=== PATIENT | male | born 1940 | race Caucasian/White ===

== ENCOUNTER → 2016-09-16 | Outpatient (CLI) | payer MEDICARE, BC ==
--- NOTE | 2016-09-16 21:41 | PN ---
This is a 75-year-old male patient who is coming to see me for a compliancy check. He was diagnosed having severe [place] with an AHI of 41. He was given initially a CPAP pressure of 15 cm of water. He was having difficulty in tolerating the CPAP machine and he thought that the pressure was quite elevated. Based on that, I switched this patient to automatic mode with a pressure maximum of 15 and minimum of 5. On today's followup he is feeling much better. His P90 pressure is at 9.6. His leak factor is 18 L/minute. His AHI is down to 0.6. His average CPAP use is around 7.7 hours per night and he is using his CPAP more than 4 hours for 29 out of 30 days. He is much more happy with the automatic mode on his CPAP machine. Benefitting from treatment. No major hypersomnia or sleepiness. Much more alert and awake during the day. Piffard score is down to 2. BP is 159/81, pulse 94, respiration 16, temperature 98.3, saturation 98% on room air. Weight is 222. BMI is 33.7. GENERAL APPEARANCE: Obese, calm, comfortable. HEENT: No goiter or neck masses. LUNGS: Clear. HEART: Sounds are regular rate and rhythm. Normal S1, S2. No S3. No S4. No murmurs. ABDOMEN: Soft, nontender. No organomegaly. EXTREMITIES: No edema. No cyanosis or clubbing. IMPRESSION: 1. Obstructive sleep apnea, severe; AHI of 41; currently on Auto CPAP unit with a pressure maximum of 15, minimum of 5, with improving compliance and clinical response. 2. Obesity. 3. History of cerebrovascular accident. 4. Hypertension. 5. Hyperlipidemia. 6. Diabetes mellitus. 7. Paroxysmal atrial fibrillation. PLAN: 1. Continue the current CPAP pressure settings, which will be in automatic mode. 2. Compliance data was reviewed. 3. No need for any further adjustments. 4. Implement good sleep hygiene measures. 5. Implement weight loss. 6. Will follow.
== END | disposition home or self-care (01) ==
LOC: SLEEP 13:48
PROVIDERS: ATTEND Internal Medicine Critical Care Medicine
DX: G47.33 Obstructive sleep apnea (adult) (pediatric) (principal); E66.9 Obesity, unspecified; Z68.33 Body mass index [BMI] 33.0-33.9, adult

== ENCOUNTER → 2017-04-23 | Outpatient (CLI) | payer MEDICARE, BC ==
--- NOTE | 2017-04-23 10:49 | MR ---
EXAMINATION TYPE: MR lumbar spine wo con DATE OF EXAM: 04/23/2017 COMPARISON: NONE HISTORY: Lumbago With Sciatica TECHNIQUE: Multiplanar, multisequence images of the lumbar spine were acquired. There is mild retrolisthesis of L4 with respect to L5 (grade 1). There is also wedge compression defo rmity of L1 with approximately 20% vertebral body height loss and no retropulsion. There is no bone m arrow edema to indicate acuity. This is therefore chronic. Multilevel disc desiccation is present thr oughout the lumbar spine. Conus medullaris is unremarkable terminating at L1-L2. There is partial vis ualization of the T2 hyperintense and T1 hypointense left renal lesion within the mid to upper pole. This is only minimally seen and cannot be evaluated. Well-circumscribed T2 hyperintense and T1 predominant hypointense with areas of internal hyperintensi ty lesion is seen within the L3 vertebral body measuring 1.5 cm. This is thought to represent an atyp ical hemangioma as there is some internal T1 hyperintensity and this appears to have a trabeculated i nternal appearance. L1-L2: There is a broad-based disc bulge without focality. This results in minimal bilateral neural f oraminal narrowing. Mild facet arthropathy is also seen without spinal canal stenosis. L2-L3: There is a small central disc herniation superimposed upon a broad-based disc bulge resulting in mild bilateral neural foraminal narrowing without spinal canal stenosis. There is also mild facet arthropathy at this level. L3-L4: There is a small broad-based disc bulge in combination with facet arthropathy that creates mil d bilateral neural foraminal narrowing. No spinal canal stenosis. L4-L5: There is a broad-based disc bulge with a superimposed small right paracentral disc herniation resulting in mild spinal canal stenosis and mild bilateral neural foraminal narrowing. Facet arthropa thy and mild ligamentum flavum buckling also contribute to these findings. L5-S1: Again there is grade 1 retrolisthesis of L4 and L5 with disc uncovering inferiorly. There is i nferior annular tear of the disc and a broad-based disc bulge although no focal disc herniation is id entified. There is mild bilateral neural foraminal narrowing and facet arthropathy. Lumbar segments are intact. No paraspinal masses are identified. Conus medullaris has a normal appe arance. IMPRESSION: 1. Small central disc herniation at L2-L3 without spinal canal stenosis. Facet arthropathy results in mild right lateral neural foraminal narrowing at this level. 2. Small right paracentral disc herniation at L4-L5 superimposed upon a broad-based disc bulge that i n combination with facet arthropathy creates mild spinal canal stenosis and mild bilateral neural for aminal narrowing. 3. Grade 1 retrolisthesis of L4 on L5 and annular tear without neural foraminal narrowing or spinal c anal stenosis. 4. Multilevel degenerative disc disease as described above. 5. 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 Confirmation with CT could be performed if clinically indicated. 6. Partial visualization of a left renal lesion, incompletely evaluated. Renal ultrasound could be pe rformed for further evaluation.
== END | disposition home or self-care (01) ==
LOC: RADMRIMAIN 09:11
PROVIDERS: ATTEND Internal Medicine
DX: M48.061 Spinal stenosis, lumbar region without neurogenic claudication (principal); M51.16 Intervertebral disc disorders with radiculopathy, lumbar region; M46.97 Unspecified inflammatory spondylopathy, lumbosacral region; M99.73 Connective tissue and disc stenosis of intervertebral foramina of lumbar region; M43.16 Spondylolisthesis, lumbar region
CPT/HCPCS: 72148

== ENCOUNTER 2022-01-16 17:23 | Inpatient (IN) | payer MEDICARE, BC ==
[2022-01-16 18:47] LABS: Basophils # (A) 0.1 k/uL (0-0.2); Basophils % (A) 1 %; Eosinophils # (A) 0.2 k/uL (0-0.7); Eosinophils % (A) 2 %; HCT 47.3 % (39.0-53.0); Lymphocytes % (A) 27 %; MCHC 31.8 g/dL (31.0-37.0); MCV 94.3 fL (80.0-100.0); Mean Platelet Volume 8.6; Monocytes # (A) 0.6 k/uL (0-1.0); Monocytes % (A) 8 %; Neutrophils # (A) 4.4 k/uL (1.3-7.7); Neutrophils % (A) 58 %; Platelet Count 206 k/uL (150-450); RBC 5.01 m/uL (4.30-5.90); RDW 13.4 % (11.5-15.5); WBC 7.6 k/uL (3.8-10.6)
[2022-01-16 18:54] LABS: INR 1.3 (<1.2); Prothrombin Time 13.4 sec (9.0-12.0)
[2022-01-16 19:02] LABS: ALT 23 U/L (4-49); AST 34 U/L (17-59); African American GFR (CKD) 69 (>60 ml/min/1.73 sqM); Albumin 4.8 g/dL (3.5-5.0); Alcohol <10 mg/dL; Alkaline Phosphatase 97 U/L (38-126); Anion Gap 14 mmol/L; Blood Urea Nitrogen 14 mg/dL (9-20); Calcium 9.3 mg/dL (8.4-10.2); Carbon Dioxide 25 mmol/L (22-30); Chloride 100 mmol/L (98-107); Glucose 138 mg/dL (74-99); Non-African American GFR(CKD) 60 (>60 ml/min/1.73 sqM); Potassium 3.9 mmol/L (3.5-5.1); Sodium 139 mmol/L (137-145); Total Bilirubin 0.8 mg/dL (0.2-1.3)
--- NOTE | 2022-01-16 20:23 | ED ---
Psych HPI - General Chief Complaint: Psychiatric Symptoms Stated Complaint: hallucinations, dementia Time Seen by Provider: 01/16/22 20:22 Source: patient Mode of arrival: ambulatory - History of Present Illness Initial Comments: 81-year-old male past history of dementia presents emergency department for visual hallucinations. Sisters at bedside and helps provide the history. States that the patient has been having hallucinations for the past year however they have become significantly worse in the past week. He lives alone. Sister is concerned that he is getting hurt himself. He states that he sees bugs crawling in his house. They have come out of his vases and plants. He was sitting in bed last night and saw a bump moving around underneath the sheets. Sister reports that he told her last week that one of his plants fell over and started crawling away. He aggressively tries to kill these "hallucinations" by attacking them. He jumped on the floor and was grabbing underneath his bed to catch the bugs. Due to concern that the patient is getting injured himself they called his primary care doctor. She recommended that he come into the emergency department. He denies any recent medication changes. No recent head injuries. He does take anticoagulation for A. fib. Denies any other symptoms to include headache, visual changes, fevers, chest pain, shortness of breath. No other alleviating, precipitating or modifying factors - Related Data Home Medications Medication Instructions Recorded Confirmed Donepezil [Aricept] 10 mg PO HS 01/16/22 01/16/22 HYDROcodone/APAP 7.5-325MG [[place] 1 tab PO TID 01/16/22 01/16/22 7.5-325] Potassium Chloride ER [K-Dur 20] 30 meq PO DAILY 01/16/22 01/16/22 Rivaroxaban [Xarelto] 20 mg PO PC-SUPPER 01/16/22 01/16/22 Simvastatin [Zocor] 40 mg PO DAILY 01/16/22 01/16/22 amLODIPine [Norvasc] 5 mg PO DAILY 01/16/22 01/16/22 atenoloL 100 mg PO DAILY 01/16/22 01/16/22 lisinopriL [Zestril] 20 mg PO BID 01/16/22 01/16/22 Previous Rx's Medication Instructions Recorded Folic Acid 1 mg PO DAILY #30 tablet 01/20/22 Multivitamins, Thera [Multivitamin] 1 tab PO DAILY #30 tablet 01/20/22 QUEtiapine [SEROquel] 25 mg PO HS #30 tab 01/20/22 Thiamine [Vitamin B-1] 100 mg PO DAILY #30 tablet 01/20/22 Venlafaxine HCl ER [Effexor XR] 37.5 mg PO DAILY #30 cap 01/20/22 Allergies Allergy/AdvReac Type Severity Reaction Status Date / Time No Known Allergies Allergy Verified 01/16/22 21:49 Review of Systems ROS Statement: Those systems with pertinent positive or pertinent negative responses have been documented in the HPI. ROS Other: All systems not noted in ROS Statement are negative. Past Medical History Past Medical History: COPD, CVA/TIA, Diabetes Mellitus Additional Past Medical History / Comment(s): dementia- hallucinations (hearing and seeing things)- symptoms for months. AFIB History of Any Multi-Drug Resistant Organisms: None Reported Additional Past Surgical History / Comment(s): hand surgery Past Psychological History: No Psychological Hx Reported Smoking Status: Never smoker Past Alcohol Use History: Rare Past Drug Use History: Marijuana General Exam Limitations: no limitations General appearance: alert, in no apparent distress Head exam: Present: atraumatic, normocephalic, normal inspection Eye exam: Present: normal appearance, PERRL, EOMI. Absent: scleral icterus, conjunctival injection, periorbital swelling ENT exam: Present: normal exam, mucous membranes moist Neck exam: Present: normal inspection. Absent: tenderness, meningismus, lymphadenopathy Respiratory exam: Present: normal lung sounds bilaterally. Absent: respiratory distress, wheezes, rales, rhonchi, stridor Cardiovascular Exam: Present: regular rate, normal rhythm, normal heart sounds. Absent: systolic murmur, diastolic murmur, rubs, gallop, clicks GI/Abdominal exam: Present: soft, normal bowel sounds. Absent: distended, tenderness, guarding, rebound, rigid Extremities exam: Present: normal inspection, full ROM, normal capillary refill. Absent: tenderness, pedal edema, joint swelling, calf tenderness Back exam: Present: normal inspection Neurological exam: Present: alert, oriented X3, CN II-XII intact Psychiatric exam: Present: normal affect, normal mood, other (admit visual hallucinations - not active right now) Skin exam: Present: warm, dry, intact, normal color. Absent: rash Course Vital Signs 01/16/22 01/16/22 01/17/22 17:52 22:00 01:30 Temperature 98.5 F Pulse Rate 79 78 65 Respiratory 20 20 16 Rate Blood Pressure 127/71 138/62 O2 Sat by Pulse 99 96 Oximetry 01/17/22 01/17/22 08:15 13:13 Temperature 98.1 F Pulse Rate 72 74 Respiratory 18 18 Rate Blood Pressure 149/83 143/80 O2 Sat by Pulse 98 99 Oximetry Medical Decision Making - Medical Decision Making Upon arrival patient was placed into room 9. Her history and physical exam was performed. IV is established laboratory studies are conducted. CT brain demonstrates cerebral atrophy and chronic small vessel ischemia. Due to concern that the patient is given a harm himself he will be admitted for psychiatric consultation. Spoke with Tomer with [facility] who agreed to admit the patient. - Lab Data Result diagrams: 01/18/22 05:21 01/18/22 05:21 Lab Results 01/16/22 01/16/22 01/16/22 Range/Units 18:25 18:25 18:25 WBC 7.6 (3.8-10.6) k/uL RBC 5.01 (4.30-5.90) m/uL Hgb 15.0 (13.0-17.5) gm/dL Hct 47.3 (39.0-53.0) % MCV 94.3 (80.0-100.0) fL MCH 30.0 (25.0-35.0) pg MCHC 31.8 (31.0-37.0) g/dL RDW 13.4 (11.5-15.5) % Plt Count 206 (150-450) k/uL MPV 8.6 Neutrophils % 58 % Lymphocytes % 27 % Monocytes % 8 % Eosinophils % 2 % Basophils % 1 % Neutrophils # 4.4 (1.3-7.7) k/uL Lymphocytes # 2.0 (1.0-4.8) k/uL Monocytes # 0.6 (0-1.0) k/uL Eosinophils # 0.2 (0-0.7) k/uL Basophils # 0.1 (0-0.2) k/uL PT 13.4 H (9.0-12.0) sec INR 1.3 H (<1.2) Sodium 139 (137-145) mmol/L Potassium 3.9 (3.5-5.1) mmol/L Chloride 100 (98-107) mmol/L Carbon Dioxide 25 (22-30) mmol/L Anion Gap 14 mmol/L BUN 14 (9-20) mg/dL Creatinine 1.14 (0.66-1.25) mg/dL Est GFR (CKD-EPI)AfAm 69 (>60 ml/min/1.73 sqM) Est GFR (CKD-EPI)NonAf 60 (>60 ml/min/1.73 sqM) Glucose 138 H (74-99) mg/dL Calcium 9.3 (8.4-10.2) mg/dL Total Bilirubin 0.8 (0.2-1.3) mg/dL AST 34 (17-59) U/L ALT 23 (4-49) U/L Alkaline Phosphatase 97 (38-126) U/L Troponin I (0.000-0.034) ng/mL Total Protein 8.0 (6.3-8.2) g/dL Albumin 4.8 (3.5-5.0) g/dL TSH 1.130 (0.465-4.680) mIU/L Urine Color Urine Appearance (Clear) Urine pH (5.0-8.0) Ur Specific [place] (1.001-1.035) Urine Protein (Negative) Urine Glucose (UA) (Negative) Urine Ketones (Negative) Urine Blood (Negative) Urine Nitrite (Negative) Urine Bilirubin (Negative) Urine Urobilinogen (<2.0) mg/dL Ur Leukocyte Esterase (Negative) Urine RBC (0-5) /hpf Urine WBC (0-5) /hpf Ur Squamous Epith Cells (0-4) /hpf Hyaline Casts (0-2) /lpf Urine Mucus (None) /hpf Urine Opiates Screen (NotDetected) Ur Oxycodone Screen (NotDetected) Urine Methadone Screen (NotDetected) Ur Propoxyphene Screen (NotDetected) Ur Barbiturates Screen (NotDetected) U Tricyclic Antidepress (NotDetected) Ur Phencyclidine Scrn (NotDetected) Ur Amphetamines Screen (NotDetected) U Methamphetamines Scrn (NotDetected) U Benzodiazepines Scrn (NotDetected) Urine Cocaine Screen (NotDetected) U Marijuana (THC) Screen (NotDetected) Serum Alcohol <10 mg/dL 01/16/22 01/16/22 01/16/22 Range/Units 18:25 21:32 21:32 WBC (3.8-10.6) k/uL RBC (4.30-5.90) m/uL Hgb (13.0-17.5) gm/dL Hct (39.0-53.0) % MCV (80.0-100.0) fL MCH (25.0-35.0) pg MCHC (31.0-37.0) g/dL RDW (11.5-15.5) % Plt Count (150-450) k/uL MPV Neutrophils % % Lymphocytes % % Monocytes % % Eosinophils % % Basophils % % Neutrophils # (1.3-7.7) k/uL Lymphocytes # (1.0-4.8) k/uL Monocytes # (0-1.0) k/uL Eosinophils # (0-0.7) k/uL Basophils # (0-0.2) k/uL PT (9.0-12.0) sec INR (<1.2) Sodium (137-145) mmol/L Potassium (3.5-5.1) mmol/L Chloride (98-107) mmol/L Carbon Dioxide (22-30) mmol/L Anion Gap mmol/L BUN (9-20) mg/dL Creatinine (0.66-1.25) mg/dL Est GFR (CKD-EPI)AfAm (>60 ml/min/1.73 sqM) Est GFR (CKD-EPI)NonAf (>60 ml/min/1.73 sqM) Glucose (74-99) mg/dL Calcium (8.4-10.2) mg/dL Total Bilirubin (0.2-1.3) mg/dL AST (17-59) U/L ALT (4-49) U/L Alkaline Phosphatase (38-126) U/L Troponin I <0.012 (0.000-0.034) ng/mL Total Protein (6.3-8.2) g/dL Albumin (3.5-5.0) g/dL TSH (0.465-4.680) mIU/L Urine Color Yellow Urine Appearance Clear (Clear) Urine pH 6.5 (5.0-8.0) Ur Specific [place] 1.022 (1.001-1.035) Urine Protein 1+ H (Negative) Urine Glucose (UA) Negative (Negative) Urine Ketones Trace H (Negative) Urine Blood Negative (Negative) Urine Nitrite Negative (Negative) Urine Bilirubin 1+ H (Negative) Urine Urobilinogen 6.0 (<2.0) mg/dL Ur Leukocyte Esterase Negative (Negative) Urine RBC 1 (0-5) /hpf Urine WBC 2 (0-5) /hpf Ur Squamous Epith Cells <1 (0-4) /hpf Hyaline Casts 17 H (0-2) /lpf Urine Mucus Many H (None) /hpf Urine Opiates Screen Detected H (NotDetected) Ur Oxycodone Screen Not Detected (NotDetected) Urine Methadone Screen Not Detected (NotDetected) Ur Propoxyphene Screen Not Detected (NotDetected) Ur Barbiturates Screen Not Detected (NotDetected) U Tricyclic Antidepress Not Detected (NotDetected) Ur Phencyclidine Scrn Not Detected (NotDetected) Ur Amphetamines Screen Not Detected (NotDetected) U Methamphetamines Scrn Not Detected (NotDetected) U Benzodiazepines Scrn Not Detected (NotDetected) Urine Cocaine Screen Not Detected (NotDetected) U Marijuana (THC) Screen Detected H (NotDetected) Serum Alcohol mg/dL - EKG Data EKG Comments: EKG demonstrates A. fib with a rate of 81. QRS 131. QTC of 451. Right bundle- branch block. No acute ST segment elevations Disposition Clinical Impression: Visual hallucinations Disposition: [facility] Condition: Stable Is patient prescribed a controlled substance at d/c from ED?: No Time of Disposition: 23:36 Decision to Admit Reason: Admit from EC Decision Date: 01/16/22 Decision Time: 23:36
[2022-01-16] MEDS: DONEPEZIL 10 MG TAB PO SCH (21:00)
[2022-01-16 22:08] LABS: Appearance,Urine Clear (Clear); Bilirubin,Urine 1+ (Negative); Blood,Urine Negative (Negative); Color,Urine Yellow; Glucose,Urine (UA) Negative (Negative); Hyaline Casts,Urine 17 /lpf (0-2); Ketones,Urine Trace (Negative); Leukocyte Esterase,Urine Negative (Negative); Mucus,Urine Many /hpf; Nitrite,Urine Negative (Negative); PH, Urine 6.5 (5.0-8.0); Protein,Urine 1+ (Negative); RBC,Urine 1 /hpf (0-5); Specific Gravity,Urine 1.022 (1.001-1.035); Squamous Epithelial Cell,Urine <1 /hpf (0-4); WBC,Urine 2 /hpf (0-5)
[2022-01-16 22:19] LABS: Amphetamine Screen,Urine Not Detected (NotDetected); Barbiturate Screen,Urine Not Detected (NotDetected); Benzodiazepines Screen,Urine Not Detected (NotDetected); Cocaine Screen,Urine Not Detected (NotDetected); Methadone Screen, Urine Not Detected (NotDetected); Opiate Screen,Urine Detected (NotDetected); Oxycodone Screen, Urine Not Detected (NotDetected); Phencyclidine Screen,Urine Not Detected (NotDetected); Tricyclic Antidepressant,Urine Not Detected (NotDetected); Urn Cannabinoid Scrn Detected (NotDetected)
--- NOTE | 2022-01-16 22:37 | CT ---
EXAMINATION TYPE: CT brain alvin wo con DATE OF EXAM: 01/16/2022 COMPARISON: CT brain 6 11/2011 HISTORY: AMS. Hallucinations. Dementia CT DLP: 1472 mGycm Automated exposure control for dose reduction was used. Images of the brain and cervical spine obtained with no contrast. There is cerebral cortical atrophy. There is hypodensity in the periventricular white matter. There i s no mass effect or midline shift. No sign of intracranial hemorrhage. There is normal aeration of th e mastoid sinuses. The cervical vertebra have normal alignment. There is degenerative mild disc space narrowing from C2 to C7 with spurring of the endplates. Facet joints are intact. The skull base is intact. Sella turcic a appears normal. IMPRESSION: Spondylotic changes in the cervical spine. No fracture. Cerebral atrophy and chronic small vessel ischemia. No acute intracranial abnormality there is progre ssion of changes compared to old exams
[2022-01-16] MEDS ORDERED: NALOXONE 0.4 MG/ML 1 ML VIAL IV PRN (23:36)
[2022-01-17] MEDS: lisinopriL 20 MG TAB PO SCH ×3 (02:34→20:28)
[2022-01-17] MEDS: HYDROcodone/APAP 7.5-325MG 1 EACH TAB PO SCH ×2 (02:34→08:56)
[2022-01-17 06:10] LABS: Basophils # (A) 0.1 k/uL (0-0.2); Basophils % (A) 1 %; Eosinophils # (A) 0.2 k/uL (0-0.7); Eosinophils % (A) 3 %; HCT 45.4 % (39.0-53.0); HGB 14.5 gm/dL (13.0-17.5); Lymphocytes # (A) 1.7 k/uL (1.0-4.8); Lymphocytes % (A) 21 %; MCH 30.3 pg (25.0-35.0); MCV 94.7 fL (80.0-100.0); Mean Platelet Volume 8.7; Monocytes # (A) 0.8 k/uL (0-1.0); Monocytes % (A) 9 %; Neutrophils # (A) 5.2 k/uL (1.3-7.7); Neutrophils % (A) 63 %; Platelet Count 194 k/uL (150-450); RBC 4.79 m/uL (4.30-5.90); RDW 13.4 % (11.5-15.5); WBC 8.2 k/uL (3.8-10.6)
[2022-01-17 06:18] LABS: Calcium 8.9 mg/dL (8.4-10.2); Potassium 3.1 mmol/L (3.5-5.1)
[2022-01-17] MEDS: ATORVASTATIN 20 MG TAB PO SCH (08:56)
[2022-01-17] MEDS: atenoloL 50 MG TAB PO SCH (08:56)
[2022-01-17] MEDS: POTASSIUM CHLORIDE ER 10 MEQ TAB.ER.PRT PO SCH (08:57)
[2022-01-17] MEDS: amLODIPine 5 MG TAB PO SCH (08:57)
[2022-01-17] MEDS ORDERED: VENLAFAXINE HCL ER 75 MG CAP PO SCH (09:00)
--- NOTE | 2022-01-17 12:39 | P.CN ---
Psychiatric Consult - . Consult date: 01/17/22 Consult:: 01/17/22 12:38 IDENTIFYING DATA: This patient is a , retired, 80-year-old male with significant history of injury neurocognitive disorder who presented to the emergency department for worsening visual hallucinations. HISTORY OF PRESENT ILLNESS: The patient presented to the hospital on 01/16/2022, brought in by family due to concerns for worsening visual hallucinations. The patient reportedly has had hallucinations for the past year but over the past few weeks, his hallucinations have began to be more intense and very bothersome. Next to the patient for this evaluation is his daughter Cherry and his sister Shobha. The patient is agreeable to having them present during the psychiatric interview. The patient's family reports that the patient has had very severe hallucinations that are primarily visual in nature over the past few weeks which led him to be very fearful in his own home, at times crying, and at times "attacking the hallucinations." The patient describes very vivid hallucinations of cobwebs in his throat, bed plans falling over and calling away, and bugs in his room. He also reports that his dog is now even scared to be present in his room. In regards to any significant acute stressors, the patient and his family deny any acute stressors. However, the patient continues to be emotional regarding the passing of his 3 years ago. In regards to mood symptoms, the patient is denying any suicidal or homicidal ideation. He reports no previous attempts at suicide and escape from the family. The family does express concern for elevated anxiety and isolation as the patient lives alone and only stays with his dog. They report no significant history of bipolar symptoms. They deny any delusional thought content outside of the context of memory lapses due to his dementia. The patient has a known diagnosis of major neurocognitive disorder, likely Alzheimer's dementia. The patient displays and a signal to regarding this diagnosis however has been noted to have memory issues dating back to her even when he was approximately 3-4 years ago. PAST PSYCHIATRIC HISTORY: Patient has a history of dementia the patient is currently on a regimen of Effexor and Aricept. Patient denies any previous psychiatric hospitalizations. Patient denies any psychiatric outpatient follow- up. Patient denies any history of suicide attempts in the past. PAST MEDICAL HISTORY: COPD, CVA/TIA, diabetes mellitus ALLERGIES: NO KNOWN DRUG ALLERGIES CHEMICAL DEPENDENCY HISTORY: The patient reports rare alcohol use however his daughter states that the patient drinks daily. The current amount is unknown at this time. He has used edible marijuana lately. He denies any tobacco use or illicit drug use. FAMILY PSYCHIATRIC/SUBSTANCE USE HISTORY: No reported family psychiatric history. SOCIAL HISTORY: Patient is currently after being with his since they were 14 years of age. His father 2 to sons and 2 daughters. He identifies his daughter Cherry has a decision maker for him should he be unable to make decisions for himself. 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 MENTAL STATUS EXAM: General Appearance: Patient appears to be stated age is alert, pleasant, and cooperative. Patient appears to have fair hygiene and grooming wearing hospital gown with fair eye contact. Behavior: Patient is calmly lying in bed without any agitated behavior. Speech: Patient's speech is fluent and nonpressured. Mood/Affect: Patient reports their mood is "feeling okay, it is a little scary", affect is congruent and euthymic Suicidality/Homicidality: Patient denies having any suicidal or homicidal ideation intent or plan. Perceptions: Patient denies any visual hallucinations and denies any auditory hallucinations Though content/process: There is no evidence of any delusional thought content and thought process is linear and goal-directed. Memory and concentration: Grossly poor at this time. Judgment and insight: Poor Vital Signs Temp 98.1 F 01/17/22 08:15 Pulse 72 01/17/22 08:15 Resp 18 01/17/22 08:15 BP 149/83 01/17/22 08:15 Pulse Ox 98 01/17/22 08:15 FiO2 Intake & Output 01/16/22 01/17/22 01/17/22 18:59 06:59 18:59 Weight 85.729 kg Laboratory Results WBC 8.2 k/uL (3.8-10.6) 01/17/22 05:42 RBC 4.79 m/uL (4.30-5.90) 01/17/22 05:42 Hgb 14.5 gm/dL (13.0-17.5) 01/17/22 05:42 Hct 45.4 % (39.0-53.0) 01/17/22 05:42 MCV 94.7 fL (80.0-100.0) 01/17/22 05:42 MCH 30.3 pg (25.0-35.0) 01/17/22 05:42 MCHC 32.0 g/dL (31.0-37.0) 01/17/22 05:42 RDW 13.4 % (11.5-15.5) 01/17/22 05:42 Plt Count 194 k/uL (150-450) 01/17/22 05:42 MPV 8.7 01/17/22 05:42 Neutrophils % 63 % 01/17/22 05:42 Lymphocytes % 21 % 01/17/22 05:42 Monocytes % 9 % 01/17/22 05:42 Eosinophils % 3 % 01/17/22 05:42 Basophils % 1 % 01/17/22 05:42 Neutrophils # 5.2 k/uL (1.3-7.7) 01/17/22 05:42 Lymphocytes # 1.7 k/uL (1.0-4.8) 01/17/22 05:42 Monocytes # 0.8 k/uL (0-1.0) 01/17/22 05:42 Eosinophils # 0.2 k/uL (0-0.7) 01/17/22 05:42 Basophils # 0.1 k/uL (0-0.2) 01/17/22 05:42 PT 13.4 sec (9.0-12.0) H 01/16/22 18:25 INR 1.3 (<1.2) H 01/16/22 18:25 Sodium 139 mmol/L (137-145) 01/17/22 05:42 Potassium 3.1 mmol/L (3.5-5.1) L 01/17/22 05:42 Chloride 101 mmol/L (98-107) 01/17/22 05:42 Carbon Dioxide 27 mmol/L (22-30) 01/17/22 05:42 Anion Gap 11 mmol/L 01/17/22 05:42 BUN 14 mg/dL (9-20) 01/17/22 05:42 Creatinine 1.05 mg/dL (0.66-1.25) 01/17/22 05:42 Est GFR (CKD-EPI)AfAm 76 (>60 ml/min/1.73 sqM) 01/17/22 05:42 Est GFR (CKD-EPI)NonAf 66 (>60 ml/min/1.73 sqM) 01/17/22 05:42 Glucose 126 mg/dL (74-99) H 01/17/22 05:42 Calcium 8.9 mg/dL (8.4-10.2) 01/17/22 05:42 Total Bilirubin 0.8 mg/dL (0.2-1.3) 01/16/22 18:25 AST 34 U/L (17-59) 01/16/22 18:25 ALT 23 U/L (4-49) 01/16/22 18:25 Alkaline Phosphatase 97 U/L (38-126) 01/16/22 18:25 Troponin I <0.012 ng/mL (0.000-0.034) 01/16/22 18:25 Total Protein 8.0 g/dL (6.3-8.2) 01/16/22 18:25 Albumin 4.8 g/dL (3.5-5.0) 01/16/22 18:25 TSH 1.130 mIU/L (0.465-4.680) 01/16/22 18:25 Urine Color Yellow 01/16/22 21:32 Urine Appearance Clear (Clear) 01/16/22 21:32 Urine pH 6.5 (5.0-8.0) 01/16/22 21:32 Ur Specific [place] 1.022 (1.001-1.035) 01/16/22 21:32 Urine Protein 1+ (Negative) H 01/16/22 21:32 Urine Glucose (UA) Negative (Negative) 01/16/22 21:32 Urine Ketones Trace (Negative) H 01/16/22 21:32 Urine Blood Negative (Negative) 01/16/22 21:32 Urine Nitrite Negative (Negative) 01/16/22 21:32 Urine Bilirubin 1+ (Negative) H 01/16/22 21:32 Urine Urobilinogen 6.0 mg/dL (<2.0) 01/16/22 21:32 Ur Leukocyte Esterase Negative (Negative) 01/16/22 21:32 Urine RBC 1 /hpf (0-5) 01/16/22 21:32 Urine WBC 2 /hpf (0-5) 09/22/22 21:32 Ur Squamous Epith Cells <1 /hpf (0-4) 01/16/22 21:32 Hyaline Casts 17 /lpf (0-2) H 01/16/22 21:32 Urine Mucus Many /hpf (None) H 01/16/22 21:32 Urine Opiates Screen Detected (NotDetected) H 01/16/22 21:32 Ur Oxycodone Screen Not Detected (NotDetected) 01/16/22 21:32 Urine Methadone Screen Not Detected (NotDetected) 01/16/22 21:32 Ur Propoxyphene Screen Not Detected (NotDetected) 01/16/22 21:32 Ur Barbiturates Screen Not Detected (NotDetected) 01/16/22 21:32 U Tricyclic Antidepress Not Detected (NotDetected) 01/16/22 21:32 Ur Phencyclidine Scrn Not Detected (NotDetected) 01/16/22 21:32 Ur Amphetamines Screen Not Detected (NotDetected) 01/16/22 21:32 U Methamphetamines Scrn Not Detected (NotDetected) 01/16/22 21:32 U Benzodiazepines Scrn Not Detected (NotDetected) 01/16/22 21:32 Urine Cocaine Screen Not Detected (NotDetected) 01/16/22 21:32 U Marijuana (THC) Screen Detected (NotDetected) H 01/16/22 21:32 Serum Alcohol <10 mg/dL 01/16/22 18:25 Allergies Allergy/AdvReac Type Severity Reaction Status Date / Time No Known Allergies Allergy Verified 01/16/22 21:49 IMPRESSIONS: Acute psychosis -likely multifactorial in etiology; suspect medication side effect ([place], Aricept, Effexor), cannabis use, alcohol use, infectious process Major neurocognitive disorder PLAN: -At this time patient DOES NOT meet criteria for inpatient psychiatric admission. -Will order TSH, B12, Folate -Delirium precautions recommended with patient including - avoiding use of narcotics and AUTOMATIC DIE CUTTING MACHINE OPERATOR sedatives, limit anticholinergic medications when possible, frequent re-orientation, minimize use of restraints, open window shades during the day and close them at night -Would recommend the following medication changes/additions: We will decrease the dose of Effexor to 37.5 mg by mouth daily with plans to taper off this medication to minimize polypharmacy. EKG reviewed; at bedtime fibrillation with a QTC of 451ms. After significant discussion with the patient and his family, we are in agreement to start Seroquel 25 mg by mouth at bedtime for acute psychosis. Black box warning of increased cardiovascular events in the elderly has been discussed with the family and the patient in detail. We will be conservative on the use of this medication and gradually titrate pending patient's response and tolerance. -Will continue to follow along
[2022-01-17] MEDS ORDERED: DEXTROSE 50% SYRINGE 50 ML IVP PRN ×2 (15:12)
[2022-01-17 17:12] LABS: Glucose,Whole Blood 98 mg/dL (70-110)
[2022-01-17] MEDS: INSULIN ASPART (NovoLOG) 100 UNIT/ML VIAL SQ SCH ×2 (17:16→20:44)
[2022-01-17] MEDS: THIAMINE 100 MG TAB PO SCH (17:52)
[2022-01-17] MEDS: RIVAROXABAN 20 MG TAB PO SCH (17:52)
[2022-01-17 20:08] LABS: Glucose,Whole Blood 173 mg/dL (70-110)
[2022-01-17] MEDS: DONEPEZIL 10 MG TAB PO SCH (20:28)
[2022-01-17] MEDS: QUEtiapine 25 MG TAB PO SCH (20:28)
[2022-01-17] MEDS: HYDROcodone/APAP 7.5-325MG 1 EACH TAB PO PRN (20:46)
--- NOTE | 2022-01-18 00:55 | HP ---
HISTORY AND PHYSICAL CHIEF COMPLAINTS: Hallucinations. HISTORY OF PRESENT ILLNESS: This 81-year-old gentleman with a past medical history of dementia, COPD, was living apparently by himself, but the patient has significant visual hallucinations there is something crawling under the bed and family is concerned, the patient was taken to [facility]. THC was found to be positive. The patient is eating Edibles for back pain. The patient is apparently also drinking somewhat uncontrollably according to the family and the patient denies at this point. There is no history of any fever, rigors, or chills. PAST MEDICAL HISTORY: Reviewed, include COPD, dementia. HOME MEDICATIONS: Again reviewed include Xarelto, doses and rest of medications are noted. ALLERGIES: None. FAMILY HISTORY: No history of heart disease or strokes. SOCIAL HISTORY: History of Edibles as mentioned earlier. REVIEW OF SYSTEMS: A 14-point review is negative except as mentioned earlier. PHYSICAL EXAMINATION: VITAL SIGNS: Pulse 72, blood pressure 149/83, and respirations 18. HEENT: Conjunctivae normal. NECK: No jugular venous distention. RESPIRATIONS: Breath sounds diminished at the bases. No rhonchi, no crackles. ABDOMEN: Soft, nontender. LEGS: No edema, no swelling. SKIN: No ulcer, rash, bleeding. JOINTS: No active deforming arthropathy. LABS: CBC within normal limits, sodium 139, potassium 3.9. ASSESSMENT: 1. Dementia with hallucinations. 2. Positive THC. 3. Possible ETOH. 4. Chronic obstructive pulmonary disease. 5. Multiple medical issues. RECOMMENDATION: The patient is an 81-year-old gentleman who presented with multiple medical issues, at this time we will monitor the patient closely. I would recommend stopping the ETOH and THC. Otherwise, will obtain a psychiatry and neurology consultation to rule out the possibility of acute stroke. Discussed at length with 2 members of the family, the daughter and the niece and according to them adult foster care setting will be more appropriate for the patient. We will consult social services assistant for the evaluation of the home situation. The Adult Protection Services also have to be consulted. We will continue to monitor. PROGNOSIS: Guarded. MMODL / IJN: [id number] /
[2022-01-18 07:25] LABS: Glucose,Whole Blood 110 mg/dL (70-110)
[2022-01-18] MEDS: INSULIN ASPART (NovoLOG) 100 UNIT/ML VIAL SQ SCH ×4 (07:34→20:40)
[2022-01-18] MEDS: lisinopriL 20 MG TAB PO SCH ×2 (07:46→20:40)
[2022-01-18] MEDS: ATORVASTATIN 20 MG TAB PO SCH (07:46)
[2022-01-18] MEDS: MULTIVITAMINS, THERA 1 EACH TAB PO SCH (07:46)
[2022-01-18] MEDS: POTASSIUM CHLORIDE ER 10 MEQ TAB.ER.PRT PO SCH (07:47)
[2022-01-18] MEDS: FOLIC ACID 1 MG TAB PO SCH (07:47)
[2022-01-18] MEDS: atenoloL 50 MG TAB PO SCH (07:48)
[2022-01-18] MEDS: amLODIPine 5 MG TAB PO SCH (07:48)
[2022-01-18] MEDS: THIAMINE 100 MG TAB PO SCH ×2 (07:48→17:24)
[2022-01-18] MEDS: VENLAFAXINE HCL ER 37.5 MG CAP PO SCH (07:48)
[2022-01-18] MEDS: HYDROcodone/APAP 7.5-325MG 1 EACH TAB PO PRN (08:06)
[2022-01-18 09:16] LABS: Basophils # (A) 0.06 X 10*3/uL (0.00-0.10); Basophils % (A) 0.8 %; Eosinophils # (A) 0.29 X 10*3/uL (0.04-0.35); Eosinophils % (A) 3.8 %; HCT 41.1 % (39.6-50.0); HGB 14.2 g/dL (13.0-17.0); Immature Grans, Automated 0.1 %; Lymphocytes # (A) 2.73 X 10*3/uL (0.90-5.00); Lymphocytes % (A) 36.1 %; MCH 31.4 pg (27.0-32.0); MCHC 34.5 g/dL (32.0-37.0); MCV 90.9 fL (80.0-97.0); Mean Platelet Volume 11.6 fL (9.5-12.2); Monocytes # (A) 1.14 X 10*3/uL (0.20-1.00); Monocytes % (A) 15.1 %; NRBC Per 100 WBC 0 /100 WBCS (0.0-0.0); Neutrophils # (A) 3.33 X 10*3/uL (1.80-7.70); Neutrophils % (A) 44.1 %; Platelet Count 195 X 10*3/uL (140-440); RBC 4.52 X 10*6/uL (4.40-5.60); RDW 13.6 % (11.5-14.5); WBC 7.56 X 10*3/uL (4.50-10.00)
[2022-01-18 09:27] LABS: African American GFR (CKD) 61.3 (60.0-200.0); Anion Gap 11.2 mmol/L (10.00-18.00); BUN/Creat Ratio 17.12 Ratio (12.00-20.00); Blood Urea Nitrogen 21.4 mg/dL (9.0-27.0); Calcium 9.1 mg/dL (8.7-10.3); Carbon Dioxide 26.3 mmol/L (20.0-27.5); Non-African American GFR(CKD) 52.9 (60.0-200.0); Potassium 4.2 mmol/L (3.5-5.5)
[2022-01-18 12:24] LABS: Glucose,Whole Blood 129 mg/dL (70-110)
--- NOTE | 2022-01-18 14:23 | PN ---
PROGRESS NOTE SUBJECTIVE: This 81-year-old gentleman admitted with significant hallucinations and dementia also. The patient is also using Edibles at home for back pain. The patient is mildly confused. PHYSICAL EXAMINATION: VITAL SIGNS: Pulse 75, blood pressure 130/86, respirations 18. CHEST: Clear to auscultation. CARDIOVASCULAR: S1, S2 muffled. ABDOMEN: Soft. NERVOUS SYSTEM: No focal deficits. LABS: Reviewed. ASSESSMENT: 1. Dementia with hallucinations. 2. Positive THC. 3. Possible ETOH. 4. Chronic obstructive pulmonary disease. 5. Multiple medical issues. RECOMMENDATIONS: Recommended to continue current medications, symptomatic treatment. Otherwise recommend avoid THC. Continue with psych medications and monitor closely. The patient is unlikely to have a stroke, at this point there is no focal weakness, but the social worker aide to address the home situation. Possible AFC placement. LORETTA / NUVIA: [id number] /
--- NOTE | 2022-01-18 16:22 | P.PN ---
Subjective Progress Note Date: 01/18/22 Principal diagnosis: Acute psychosis -likely multifactorial in etiology; suspect medication side effect ([place], Aricept, Effexor), cannabis use, alcohol use, infectious process Major neurocognitive disorder PLAN: -At this time patient DOES NOT meet criteria for inpatient psychiatric admission. -Will order TSH, B12, Folate -Delirium precautions recommended with patient including - avoiding use of narcotics and PRICE CHECKER sedatives, limit anticholinergic medications when possible, frequent re-orientation, minimize use of restraints, open window shades during the day and close them at night -Would recommend the following medication changes/additions: We will decrease the dose of Effexor to 37.5 mg by mouth daily with plans to taper off this medication to minimize polypharmacy. EKG reviewed; at bedtime fibrillation with a QTC of 451ms. After significant discussion with the patient and his family, we are in agreement to start Seroquel 25 mg by mouth at bedtime for acute psychosis. Black box warning of increased cardiovascular events in the elderly has been discussed with the family and the patient in detail. We will be conservative on the use of this medication and gradually titrate pending patient's response and tolerance. He says that people just don't understand what it is like to lose a of 65 years. He denies any hallucinations and did not seem to be responding to any. He seemed to want to talk about familyproblems but made good sense throughout. Assessment: stable. Nursing staff say he is calm and doing well. I agree with stopping effexor gradually and he does not seem to have any withdrawal and the 25 of Seroquel is reasonable. Objective - Vital Signs Vital signs: Vital Signs Temp 98.1 F 01/18/22 12:25 Pulse 69 01/18/22 12:25 Resp 20 01/18/22 12:25 BP 143/73 01/18/22 12:25 Pulse Ox 98 01/18/22 12:25 FiO2 Intake & Output 01/17/22 01/18/22 01/18/22 18:59 06:59 18:59 Intake Total 300 Balance 300 Weight 85.729 kg Intake: Oral 300 Other: # Voids 2 - Labs CBC & Chem 7: 01/18/22 05:21 01/18/22 05:21 Labs: Abnormal Lab Results - Last 24 Hours (Table) 01/17/22 01/17/2201/18/22 Range/Units 05:42 20:04 05:21 Monocytes # 1.14 H (0.20-1.00) X 10*3/uL Est GFR (CKD-EPI)NonAf (60.0-200.0) Glucose (70-110) mg/dL POC Glucose (mg/dL) 173 H (70-110) mg/dL Hemoglobin A1c 6.3 H (0.0-6.0) % 01/18/22 01/18/22 Range/Units 05:21 12:23 Monocytes # (0.20-1.00) X 10*3/uL Est GFR (CKD-EPI)NonAf 52.9 L (60.0-200.0) Glucose 120 H (70-110) mg/dL POC Glucose (mg/dL) 129 H (70-110) mg/dL Hemoglobin A1c (0.0-6.0) %
[2022-01-18 16:57] LABS: Glucose,Whole Blood 133 mg/dL (70-110)
[2022-01-18] MEDS: RIVAROXABAN 20 MG TAB PO SCH (17:24)
[2022-01-18 20:25] LABS: Glucose,Whole Blood 164 mg/dL (70-110)
[2022-01-18] MEDS: QUEtiapine 25 MG TAB PO SCH (20:40)
[2022-01-18] MEDS: DONEPEZIL 10 MG TAB PO SCH (20:40)
[2022-01-19 07:10] LABS: Glucose,Whole Blood 104 mg/dL (70-110)
[2022-01-19] MEDS: INSULIN ASPART (NovoLOG) 100 UNIT/ML VIAL SQ SCH ×4 (07:22→20:27)
[2022-01-19] MEDS: POTASSIUM CHLORIDE ER 10 MEQ TAB.ER.PRT PO SCH (09:23)
[2022-01-19] MEDS: HYDROcodone/APAP 7.5-325MG 1 EACH TAB PO PRN (09:23)
[2022-01-19] MEDS: FOLIC ACID 1 MG TAB PO SCH (09:23)
[2022-01-19] MEDS: VENLAFAXINE HCL ER 37.5 MG CAP PO SCH (09:24)
[2022-01-19] MEDS: ATORVASTATIN 20 MG TAB PO SCH (09:24)
[2022-01-19] MEDS: THIAMINE 100 MG TAB PO SCH ×2 (09:24→16:57)
[2022-01-19] MEDS: amLODIPine 5 MG TAB PO SCH (09:24)
[2022-01-19] MEDS: MULTIVITAMINS, THERA 1 EACH TAB PO SCH (09:24)
[2022-01-19] MEDS: atenoloL 50 MG TAB PO SCH (09:24)
[2022-01-19] MEDS: lisinopriL 20 MG TAB PO SCH ×2 (09:24→20:33)
[2022-01-19 12:27] LABS: Glucose,Whole Blood 114 mg/dL (70-110)
--- NOTE | 2022-01-19 14:59 | P.PN ---
Subjective Progress Note Date: 01/19/22 Principal diagnosis: Acute psychosis -likely multifactorial in etiology; suspect medication side effect ([place], Aricept, Effexor), cannabis use, alcohol use, infectious process Major neurocognitive disorder Subjective: The patient says that he slept well is not noticing any negative side effects from the medication. 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 Some rambling but not excessive and not irrational. Has a little bit of pressure to his speech. PLAN: -At this time patient DOES NOT meet criteria for inpatient psychiatric admissi on. Assessment: stable. Nursing staff say he is calm and doing well. I agree with stopping effexor gradually and he does not seem to have any withdrawal and the 25 of Seroquel is a reasonable dose and seems to be working well.. Objective - Vital Signs Vital signs: Vital Signs Temp 98 F 01/19/22 11:58 Pulse 75 01/19/22 11:58 Resp 18 01/19/22 11:58 BP 118/73 01/19/22 11:58 Pulse Ox 98 01/19/22 11:58 FiO2 Intake & Output 01/18/22 01/19/22 01/19/22 18:59 06:59 18:59 Intake Total 540 500 Output Total 600 Balance 540 -100 Intake: Oral 540 500 Output: Urine 600 Other: Voiding Method Urinal Urinal # Voids 3 1 - Labs CBC & Chem 7: 01/18/22 05:21 01/18/22 05:21 Labs: Abnormal Lab Results - Last 24 Hours (Table) 01/18/22 01/18/22 01/19/22 Range/Units 16:56 20:15 12:25 POC Glucose (mg/dL) 133 H 164 H 114 H (70-110) mg/dL
[2022-01-19] MEDS: RIVAROXABAN 20 MG TAB PO SCH (16:57)
[2022-01-19 17:17] LABS: Glucose,Whole Blood 137 mg/dL (70-110)
[2022-01-19] MEDS: DONEPEZIL 10 MG TAB PO SCH (20:33)
[2022-01-19] MEDS: QUEtiapine 25 MG TAB PO SCH (20:33)
[2022-01-19 20:49] LABS: Glucose,Whole Blood 139 mg/dL (70-110)
[2022-01-20 06:22] VITALS: BP 144/75; PULSE 99; RESP 20; TEMP 97.6
[2022-01-20 07:20] LABS: Glucose,Whole Blood 115 mg/dL (70-110)
--- NOTE | 2022-01-20 08:42 | PN ---
PROGRESS NOTE SUBJECTIVE: This 81-year-old gentleman, who was admitted with dementia, hallucination, is being closely monitored. Medication being adjusted. No chest pain. No palpitations. No fever. PHYSICAL EXAMINATION: VITAL SIGNS: Pulse 89, blood pressure 150/70, respirations 18. CHEST: Clear to auscultation. CARDIOVASCULAR: S1, S2. ABDOMEN: Soft. NERVOUS SYSTEM: No focal deficits. LABORATORY DATA: Reviewed. ASSESSMENT: 1. Dementia with hallucinations. 2. Positive THC. 3. Possible ETOH. 4. Chronic obstructive pulmonary disease. 5. Multiple medical issues. RECOMMENDATIONS: Continue current medications and symptomatic treatment. Otherwise, continue with the Seroquel and discussed with the family at the bedside possible AFC placement. We will follow closely with Social Work and Case Management tomorrow. LORETTA / NUVIA: [id number] /
[2022-01-20] MEDS: INSULIN ASPART (NovoLOG) 100 UNIT/ML VIAL SQ SCH (09:17)
[2022-01-20] MEDS: HYDROcodone/APAP 7.5-325MG 1 EACH TAB PO PRN (09:17)
[2022-01-20] MEDS: atenoloL 50 MG TAB PO SCH (09:18)
[2022-01-20] MEDS: POTASSIUM CHLORIDE ER 10 MEQ TAB.ER.PRT PO SCH (09:18)
[2022-01-20] MEDS: MULTIVITAMINS, THERA 1 EACH TAB PO SCH (09:18)
[2022-01-20] MEDS: THIAMINE 100 MG TAB PO SCH (09:18)
[2022-01-20] MEDS: ATORVASTATIN 20 MG TAB PO SCH (09:18)
[2022-01-20] MEDS: lisinopriL 20 MG TAB PO SCH (09:18)
[2022-01-20] MEDS: amLODIPine 5 MG TAB PO SCH (09:18)
[2022-01-20] MEDS: FOLIC ACID 1 MG TAB PO SCH (09:18)
[2022-01-20] MEDS: VENLAFAXINE HCL ER 37.5 MG CAP PO SCH (09:19)
--- NOTE | 2022-01-21 10:15 | DS ---
DISCHARGE SUMMARY FINAL DIAGNOSES: 1. Dementia with hallucinations. 2. Positive THC. 3. History of possible ETOH. 4. Chronic obstructive pulmonary disease. 5. Multiple medical issues. DISCHARGE DISPOSITION: The patient will be discharged in stable condition. Guarded prognosis. HISTORY OF PRESENT ILLNESS: This 81-year-old gentleman with dementia and hallucination, treated symptomatically. Psychiatry saw the patient and adjusted medication. The patient improved significantly. PHYSICAL EXAMINATION: VITAL SIGNS: Stable. CARDIOVASCULAR: S1, S2 muffled. ABDOMEN: Soft. NERVOUS SYSTEM: No focal deficits. AFC placement was recommended. farmworker poultry, and the patient's daughter is also getting guardianship. DISCHARGE MEDICATIONS: Continue the home medications and reduce Effexor to 37.5 mg p.o. daily and add Seroquel 25 mg q.h.s. Please refer to the discharge reconciliation sheet for list of medications. MMVISHALL / RODOLFON: [id number] /
== END 2022-01-20 12:30 | disposition home health service (06) | DRG 884 ==
LOC: EC 17:23 → 5NMEDONC 23:36
PROVIDERS: ADMIT Hospitalist; ATTEND Hospitalist
DX: F01.50 Vascular dementia, unspecified severity, without behavioral disturbance, psychotic disturbance, mood disturbance, and anxiety (principal); F23 Brief psychotic disorder; J44.9 Chronic obstructive pulmonary disease, unspecified; T44.1X5A Adverse effect of other parasympathomimetics [cholinergics], initial encounter; T43.215A Adverse effect of selective serotonin and norepinephrine reuptake inhibitors, initial encounter; T40.2X5A Adverse effect of other opioids, initial encounter; I48.91 Unspecified atrial fibrillation; I45.10 Unspecified right bundle-branch block; E11.9 Type 2 diabetes mellitus without complications; M54.9 Dorsalgia, unspecified; Z79.01 Long term (current) use of anticoagulants; Z79.899 Other long term (current) drug therapy; Z86.73 Personal history of transient ischemic attack (TIA), and cerebral infarction without residual deficits
CPT/HCPCS: 36415; 70450; 72125; 80048; 80053; 80306; 80320; 81001; 82607; 82746; 83036; 84443; 84484; 85025; 85610; 93005; 99285

== ENCOUNTER 2023-10-01 16:32 | Inpatient (IN) | payer MEDICARE, BC ==
--- NOTE | 2023-10-01 17:13 | ED ---
Altered Mental Status HPI - General Chief Complaint: Altered Mental Status Stated Complaint: Fall Time Seen by Provider: 10/01/23 16:39 Source: EMS Mode of arrival: EMS Limitations: altered mental status - History of Present Illness Initial Comments: Patient is an 82-year-old man who is brought from his senior apartment to have evaluation for altered mental status. The patient was found on the floor when staff checked on him. He had last been seen the prior evening. The patient states that he remembers going to bed but then does not remember anything after though he does remember being found on the floor this afternoon. Patient denies pain. He denies dyspnea, cough, nausea or vomiting. MD Complaint: altered mental status -: unknown Consistency of Symptoms: unknown Associated Symptoms: denies other symptoms - Related Data Home Medications Medication Instructions Recorded Confirmed Rivaroxaban [Xarelto] 20 mg PO DAILY 01/16/22 10/01/23 lisinopriL [Zestril] 20 mg PO DIRECTED 01/16/22 10/02/23 Potassium Chloride ER [K-Dur 20] 10 meq PO DIRECTED 10/02/23 10/02/23 Potassium Chloride ER [K-Dur 20] 20 meq PO DIRECTED 10/02/23 10/02/23 Allergies Allergy/AdvReac Type Severity Reaction Status Date / Time No Known Allergies Allergy Verified 10/02/23 13:28 Review of Systems ROS Statement: Those systems with pertinent positive or pertinent negative responses have been documented in the HPI. ROS Other: All systems not noted in ROS Statement are negative. Constitutional: Denies: fever Eyes: Denies: vision change Respiratory: Denies: cough, dyspnea Cardiovascular: Denies: chest pain, palpitations Gastrointestinal: Denies: abdominal pain, vomiting, diarrhea Genitourinary: Denies: dysuria Musculoskeletal: Denies: back pain Skin: Denies: rash Neurological: Denies: headache, weakness Past Medical History Past Medical History: COPD, CVA/TIA, Diabetes Mellitus Additional Past Medical History / Comment(s): dementia- hallucinations (hearing and seeing things)- symptoms for months. AFIB History of Any Multi-Drug Resistant Organisms: None Reported Additional Past Surgical History / Comment(s): hand surgery Past Anesthesia/Blood Transfusion Reactions: No Reported Reaction Past Psychological History: No Psychological Hx Reported Smoking Status: Never smoker Past Alcohol Use History: Rare Past Drug Use History: Marijuana General Exam Limitations: altered mental status General appearance: alert, in no apparent distress Head exam: Present: atraumatic, normocephalic Eye exam: Present: normal appearance, PERRL, EOMI. Absent: scleral icterus, conjunctival injection, nystagmus ENT exam: Present: mucous membranes dry Neck exam: Present: normal inspection, full ROM. Absent: tenderness, meningismus Respiratory exam: Present: normal lung sounds bilaterally. Absent: respiratory distress, wheezes, rales, rhonchi, stridor, chest wall tenderness, accessory muscle use Cardiovascular Exam: Present: tachycardia, normal heart sounds. Absent: systolic murmur, diastolic murmur, rubs, gallop GI/Abdominal exam: Present: soft. Absent: distended, tenderness, guarding, rebound, rigid, mass Extremities exam: Present: normal inspection, normal capillary refill. Absent: pedal edema, calf tenderness Back exam: Present: normal inspection. Absent: CVA tenderness (R), CVA tenderness (L), vertebral tenderness Neurological exam: Present: alert, CN II-XII intact. Absent: oriented X3 (Patient is disoriented to date, but does recognize she is at the hospital.), motor sensory deficit Skin exam: Present: warm, dry, intact, normal color. Absent: rash Course Vital Signs 10/01/23 10/01/23 10/01/23 16:46 17:51 18:30 Temperature 98.6 F Pulse Rate 120 H 121 H 120 H Respiratory 20 16 20 Rate Blood Pressure 188/126 202/125 188/127 O2 Sat by Pulse 99 97 95 Oximetry 10/01/23 10/01/23 10/01/23 19:56 20:00 20:15 Temperature 98.5 F Pulse Rate 118 H 117 H 121 H Respiratory 18 Rate Blood Pressure 205/132 205/132 216/134 O2 Sat by Pulse Oximetry 10/01/23 10/01/23 10/01/23 20:30 20:45 21:00 Temperature Pulse Rate 117 H 126 H 129 H Respiratory Rate Blood Pressure 216/134 219/131 219/131 O2 Sat by Pulse Oximetry 10/01/23 10/01/23 10/01/23 21:15 21:30 21:45 Temperature Pulse Rate 114 H 113 H Respiratory Rate Blood Pressure 176/111 188/135 192/116 O2 Sat by Pulse 97 96 Oximetry 10/01/23 10/01/23 10/01/23 22:00 22:15 22:30 Temperature Pulse Rate 116 H 114 H 116 H Respiratory Rate Blood Pressure 185/133 197/123 198/117 O2 Sat by Pulse 95 94 L 96 Oximetry 10/01/23 10/01/23 10/01/23 22:45 23:00 23:15 Temperature 97.7 F Pulse Rate 118 H 107 H 112 H Respiratory Rate Blood Pressure 193/116 207/121 181/119 O2 Sat by Pulse 96 96 95 Oximetry 10/01/23 10/01/23 10/01/23 23:30 23:45 23:47 Temperature Pulse Rate 120 H 106 H Respiratory Rate Blood Pressure 180/117 178/105 189/159 O2 Sat by Pulse 95 95 Oximetry 10/02/23 10/02/23 10/02/23 01:26 04:00 08:00 Temperature 97.7 F Pulse Rate 113 H 111 H 118 H Respiratory 17 18 18 Rate Blood Pressure 192/118 167/104 145/114 O2 Sat by Pulse 97 95 96 Oximetry 10/02/23 10/02/23 10/02/23 08:41 09:00 10:00 Temperature Pulse Rate 120 H 128 H 81 Respiratory 16 18 18 Rate Blood Pressure 177/111 177/111 O2 Sat by Pulse 96 96 96 Oximetry 10/02/23 10/02/23 10/02/23 10:44 11:00 11:09 Temperature Pulse Rate 90 89 72 Respiratory 20 18 18 Rate Blood Pressure 140/78 140/78 140/78 O2 Sat by Pulse 96 98 Oximetry 10/02/23 10/02/23 10/02/23 11:57 12:33 13:00 Temperature Pulse Rate 81 78 98 Respiratory 20 18 14 Rate Blood Pressure 140/78 142/82 137/96 O2 Sat by Pulse 96 96 Oximetry 10/02/23 10/02/23 10/02/23 16:00 18:00 18:30 Temperature Pulse Rate 86 98 76 Respiratory 18 18 18 Rate Blood Pressure 136/93 136/97 147/83 O2 Sat by Pulse 97 93 L 97 Oximetry 10/02/23 20:47 Temperature Pulse Rate 84 Respiratory 18 Rate Blood Pressure 157/99 O2 Sat by Pulse 98 Oximetry Medical Decision Making - Medical Decision Making Is an 82-year-old man here after being found on the ground at his detention apartment. Patient is found to be in atrial fibrillation with rapid ventricular rate and is started on Cardizem, also fluid bolus as he does appear to be somewhat dry. 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 The patient was started on dexamethasone for the edema and I had discussion with the patient and with his sister who is at the bedside. The patient quite somnolent and not appearing to at this point be able to comprehend the diagnosis. The patient's sister states that she believes he probably would not want to have any invasive surgery. I had a preliminary discussion based on my interpretation of the study with her and she had spoken with the patient's children and they are going to get together in the morning and have further discussion. They believe that the patient probably would not want surgery but may be open to considering radiation therapy if this is approp riate. In light of not wanting to have invasive treatment, patient be admitted here to have oncology consultation. The patient had chest x-ray that I interpreted as negative for acute infiltrate, pneumothorax, congestive heart failure Was pt. sent in by a medical professional or institution (, PA, [employer], urgent care, hospital, or snf...) When possible be specific @ -[No] Did you speak to anyone other than the patient for history (EMS, parent, family, police, friend...)? What history was obtained from this source @ -The patient's sister did provide some history Did you review nursing and triage notes (agree or disagree)? Why? @ -[I reviewed and agree with nursing and triage notes] Were old charts reviewed (outside hosp., previous admission, EMS record, old EKG, old radiological studies, urgent care reports/EKG's, snf records)? Report findings @ -[No old charts were reviewed] Differential Diagnosis (chest pain, altered mental status, abdominal pain women, abdominal pain men, vaginal bleeding, weakness, fever, dyspnea, syncope, headache, dizziness, GI bleed, back pain, seizure, CVA, palpatations, mental health, musculoskeletal)? @ -[Differential Altered Mental Status: Hypoglycemia, DKA, hypercapnia, ETOH, overdose, CO poisoning, trauma, myxedema coma, HTN encephalopathy, infection, encephalitis, psychosis, intercranial hemorrhage, hepatic encephalopathy, meningitis, CVA, this is not meant to be an all-inclusive list EKG interpreted by me (3pts min.). @ -[Interpreted as above] X-rays interpreted by me (1pt min.). @ -[I interpreted as above CT interpreted by me (1pt min.). @ -[I interpreted as above U/S interpreted by me (1pt. min.). @ -[None done] What testing was considered but not performed or refused? (CT, X-rays, U/S, labs)? Why? @ -[None] What meds were considered but not given or refused? Why? @ -[None] Did you discuss the management of the patient with other professionals (professionals i.e. [facility], PA, [employer], lab, RT, psych nurse, director of social work, bankruptcy assistant, teacher, radio officer, onsite case manager)? Give summary @ -Case discussed with admitting physician and treatment recommendations are incorporated Was smoking cessation discussed for >3mins.? @ -[No] Was critical care preformed (if so, how long)? @ -[Yes, 35 minutes Were there social determinants of health that impacted care today? How? (Homelessness, low income, unemployed, alcoholism, drug addiction, transportation, low edu. Level, literacy, decrease access to med. care, half-way, rehab)? @ -[No] Was there de-escalation of care discussed even if they declined (Discuss DNR or withdrawal of care, Hospice)? DNR status @ -[Yes, see above What co-morbidities impacted this encounter? (DM, HTN, Smoking, COPD, CAD, Cancer, CVA, ARF, Chemo, Hep., AIDS, mental health diagnosis, sleep apnea, morbid obesity)? @ -[None] Was patient admitted / discharged? Hospital course, mention meds given and route, prescriptions, significant lab abnormalities, going to OR and other pertinent info. @ -[See the notes above Undiagnosed new problem with uncertain prognosis? @ -[No] Drug Therapy requiring intensive monitoring for toxicity (Heparin, Nitro, Insulin, Cardizem)? @ -[No] Were any procedures done? @ -[No] Diagnosis/symptom? @ -[Acute altered mental status Basal ganglia mass, acute Atrial fibrillation with rapid ventricular rate Acute, or Chronic, or Acute on Chronic? @ -[default] Uncomplicated (without systemic symptoms) or Complicated (systemic symptoms)? @ -[Complicated by mental status change Side effects of treatment? @ -[No] Exacerbation, Progression, or Severe Exacerbation? @ -[No] Poses a threat to life or bodily function? How? (Chest pain, [place], [place], pneumonia, PE, COPD, DKA, ARF, appy, cholecystitis, CVA, Diverticulitis, Homicidal, Suicidal, threat to staff... and all critical care pts) @ -[Yes - Lab Data Result diagrams: 10/04/23 08:24 10/04/23 08:24 Lab Results 10/01/23 10/01/23 10/01/23 Range/Units 17:25 17:25 18:14 WBC 11.5 H (3.8-10.6) k/uL RBC 5.93 H (4.30-5.90) m/uL Hgb 18.2 H (13.0-17.5) gm/dL Hct 54.2 H (39.0-53.0) % MCV 91.4 (80.0-100.0) fL MCH 30.7 (25.0-35.0) pg MCHC 33.7 (31.0-37.0) g/dL RDW 13.9 (11.5-15.5) % Plt Count (150-450) k/uL MPV 13.3 Neutrophils % 74 % Lymphocytes % 14 % Monocytes % 9 % Eosinophils % 0 % Basophils % 0 % Neutrophils # 8.5 H (1.3-7.7) k/uL Lymphocytes # 1.6 (1.0-4.8) k/uL Monocytes # 1.0 (0-1.0) k/uL Eosinophils # 0.0 (0-0.7) k/uL Basophils # 0.0 (0-0.2) k/uL Manual Slide Review Performed PT (10.0-12.5) sec INR (<1.2) APTT (22.0-30.0) sec Sodium 142 (137-145) mmol/L Potassium 4.1 (3.5-5.1) mmol/L Chloride 107 (98-107) mmol/L Carbon Dioxide 21 L (22-30) mmol/L Anion Gap 14 mmol/L BUN 32 H (9-20) mg/dL Creatinine 1.19 (0.66-1.25) mg/dL Est GFR (CKD-EPI)AfAm 65 (>60 ml/min/1.73 sqM) Est GFR (CKD-EPI)NonAf 56 (>60 ml/min/1.73 sqM) Glucose 198 H (74-99) mg/dL Calcium 8.8 (8.4-10.2) mg/dL Total Bilirubin 2.1 H (0.2-1.3) mg/dL AST 54 (17-59) U/L ALT 21 (4-49) U/L Alkaline Phosphatase 89 (38-126) U/L Ammonia (<30) umol/L Total Creatine Kinase (30-223) u/L CK-MM (CK-3) (96.7-100.0) % CK-MB (CK-2) (0.0-3.3) % CK-BB (CK-1) (0.0) % Troponin I (0.000-0.034) ng/mL Total Protein 8.4 H (6.3-8.2) g/dL Albumin 4.4 (3.5-5.0) g/dL Urine Color Colorless Urine Appearance Clear (Clear) Urine pH 6.0 (5.0-8.0) Ur Specific [place] 1.011 (1.001-1.035) Urine Protein Trace H (Negative) Urine Glucose (UA) 1+ H (Negative) Urine Ketones 1+ H (Negative) Urine Blood Small H (Negative) Urine Nitrite Negative (Negative) Urine Bilirubin Negative (Negative) Urine Urobilinogen <2.0 (<2.0) mg/dL Ur Leukocyte Esterase Moderate H (Negative) Urine RBC 1 (0-5) /hpf Urine WBC 3 (0-5) /hpf Ur Squamous Epith Cells <1 (0-4) /hpf Urine Bacteria Rare H (None) /hpf Urine Mucus Occasional H (None) /hpf Serum Alcohol <10 mg/dL 10/01/23 10/01/23 10/01/23 Range/Units 18:14 18:14 18:14 WBC (3.8-10.6) k/uL RBC (4.30-5.90) m/uL Hgb (13.0-17.5) gm/dL Hct (39.0-53.0) % MCV (80.0-100.0) fL MCH (25.0-35.0) pg MCHC (31.0-37.0) g/dL RDW (11.5-15.5) % Plt Count (150-450) k/uL MPV Neutrophils % % Lymphocytes % % Monocytes % % Eosinophils % % Basophils % % Neutrophils # (1.3-7.7) k/uL Lymphocytes # (1.0-4.8) k/uL Monocytes # (0-1.0) k/uL Eosinophils # (0-0.7) k/uL Basophils # (0-0.2) k/uL Manual Slide Review PT 12.5 (10.0-12.5) sec INR 1.2 H (<1.2) APTT 24.5 (22.0-30.0) sec Sodium (137-145) mmol/L Potassium (3.5-5.1) mmol/L Chloride (98-107) mmol/L Carbon Dioxide (22-30) mmol/L Anion Gap mmol/L BUN (9-20) mg/dL Creatinine (0.66-1.25) mg/dL Est GFR (CKD-EPI)AfAm (>60 ml/min/1.73 sqM) Est GFR (CKD-EPI)NonAf (>60 ml/min/1.73 sqM) Glucose (74-99) mg/dL Calcium (8.4-10.2) mg/dL Total Bilirubin (0.2-1.3) mg/dL AST (17-59) U/L ALT (4-49) U/L Alkaline Phosphatase (38-126) U/L Ammonia <9 (<30) umol/L Total Creatine Kinase (30-223) u/L CK-MM (CK-3) (96.7-100.0) % CK-MB (CK-2) (0.0-3.3) % CK-BB (CK-1) (0.0) % Troponin I 0.055 H* (0.000-0.034) ng/mL Total Protein (6.3-8.2) g/dL Albumin (3.5-5.0) g/dL Urine Color Urine Appearance (Clear) Urine pH (5.0-8.0) Ur Specific [place] (1.001-1.035) Urine Protein (Negative) Urine Glucose (UA) (Negative) Urine Ketones (Negative) Urine Blood (Negative) Urine Nitrite (Negative) Urine Bilirubin (Negative) Urine Urobilinogen (<2.0) mg/dL Ur Leukocyte Esterase (Negative) Urine RBC (0-5) /hpf Urine WBC (0-5) /hpf Ur Squamous Epith Cells (0-4) /hpf Urine Bacteria (None) /hpf Urine Mucus (None) /hpf Serum Alcohol mg/dL 10/01/23 Range/Units 22:47 WBC (3.8-10.6) k/uL RBC (4.30-5.90) m/uL Hgb (13.0-17.5) gm/dL Hct (39.0-53.0) % MCV (80.0-100.0) fL MCH (25.0-35.0) pg MCHC (31.0-37.0) g/dL RDW (11.5-15.5) % Plt Count (150-450) k/uL MPV Neutrophils % % Lymphocytes % % Monocytes % % Eosinophils % % Basophils % % Neutrophils # (1.3-7.7) k/uL Lymphocytes # (1.0-4.8) k/uL Monocytes # (0-1.0) k/uL Eosinophils # (0-0.7) k/uL Basophils # (0-0.2) k/uL Manual Slide Review PT (10.0-12.5) sec INR (<1.2) APTT (22.0-30.0) sec Sodium (137-145) mmol/L Potassium (3.5-5.1) mmol/L Chloride (98-107) mmol/L Carbon Dioxide (22-30) mmol/L Anion Gap mmol/L BUN (9-20) mg/dL Creatinine (0.66-1.25) mg/dL Est GFR (CKD-EPI)AfAm (>60 ml/min/1.73 sqM) Est GFR (CKD-EPI)NonAf (>60 ml/min/1.73 sqM) Glucose (74-99) mg/dL Calcium (8.4-10.2) mg/dL Total Bilirubin (0.2-1.3) mg/dL AST (17-59) U/L ALT (4-49) U/L Alkaline Phosphatase (38-126) U/L Ammonia (<30) umol/L Total Creatine Kinase 343 H (30-223) u/L CK-MM (CK-3) 100.0 (96.7-100.0) % CK-MB (CK-2) 0.0 (0.0-3.3) % CK-BB (CK-1) 0.0 (0.0) % Troponin I (0.000-0.034) ng/mL Total Protein (6.3-8.2) g/dL Albumin (3.5-5.0) g/dL Urine Color Urine Appearance (Clear) Urine pH (5.0-8.0) Ur Specific [place] (1.001-1.035) Urine Protein (Negative) Urine Glucose (UA) (Negative) Urine Ketones (Negative) Urine Blood (Negative) Urine Nitrite (Negative) Urine Bilirubin (Negative) Urine Urobilinogen (<2.0) mg/dL Ur Leukocyte Esterase (Negative) Urine RBC (0-5) /hpf Urine WBC (0-5) /hpf Ur Squamous Epith Cells (0-4) /hpf Urine Bacteria (None) /hpf Urine Mucus (None) /hpf Serum Alcohol mg/dL - EKG Data -: EKG Interpreted by Sd EKG shows normal: axis (Right axis deviation), intervals (QRS duration 149 ms, prolonged consistent with right bundle branch block. QTc 428 ms, normal.), QRS complexes (There is a right bundle branch block pattern) Rate: tachycardia (Rate 119 bpm) Interpretation: other (Underlying rhythm is atrial fibrillation.) Disposition Clinical Impression: Atrial fibrillation with RVR, Brain mass, Altered mental status Disposition: ADMITTED IP TO THIS HOSP Condition: Stable Is patient prescribed a controlled substance at d/c from ED?: No
[2023-10-01 17:56] LABS: Basophils % (A) 0 %; Eosinophils % (A) 0 %; HCT 54.2 % (39.0-53.0); HGB 18.2 gm/dL (13.0-17.5); Lymphocytes # (A) 1.6 k/uL (1.0-4.8); Lymphocytes % (A) 14 %; MCH 30.7 pg (25.0-35.0); MCHC 33.7 g/dL (31.0-37.0); MCV 91.4 fL (80.0-100.0); Mean Platelet Volume 13.3; Monocytes % (A) 9 %; Neutrophils # (A) 8.5 k/uL (1.3-7.7); Neutrophils % (A) 74 %; RBC 5.93 m/uL (4.30-5.90); RDW 13.9 % (11.5-15.5); WBC 11.5 k/uL (3.8-10.6)
[2023-10-01] MEDS: SODIUM CHLORIDE 0.9% 1,000 ML IV ONE ×2 (18:06→18:07)
--- NOTE | 2023-10-01 18:42 | XR ---
EXAMINATION TYPE: XR chest 1V portable DATE OF EXAM: 10/01/2023 Comparison: 10/03/2011 Clinical History: 82-year-old male with altered mental status, fall, chest pain Findings: Heart upper limits of normal in size. Monitors are in arch calcifications. No consolidation or pleura l effusion. Impression: Borderline heart size. No acute process seen.
[2023-10-01 18:49] LABS: INR 1.2 (<1.2); Partial Thromboplastin Time 24.5 sec (22.0-30.0); Prothrombin Time 12.5 sec (10.0-12.5)
[2023-10-01 19:13] LABS: ALT 21 U/L (4-49); African American GFR (CKD) 65 (>60 ml/min/1.73 sqM); Alcohol <10 mg/dL; Anion Gap 14 mmol/L; Blood Urea Nitrogen 32 mg/dL (9-20); Calcium 8.8 mg/dL (8.4-10.2); Carbon Dioxide 21 mmol/L (22-30); Chloride 107 mmol/L (98-107); Glucose 198 mg/dL (74-99); Non-African American GFR(CKD) 56 (>60 ml/min/1.73 sqM); Sodium 142 mmol/L (137-145); Total Bilirubin 2.1 mg/dL (0.2-1.3)
[2023-10-01 19:18] LABS: Potassium 4.1 mmol/L (3.5-5.1)
[2023-10-01 19:19] LABS: AST 54 U/L (17-59); Albumin 4.4 g/dL (3.5-5.0); Alkaline Phosphatase 89 U/L (38-126); Total Protein 8.4 g/dL (6.3-8.2)
[2023-10-01 20:22] LABS: Appearance,Urine Clear (Clear); Bacteria,Urine Rare /hpf; Bilirubin,Urine Negative (Negative); Blood,Urine Small (Negative); Color,Urine Colorless; Glucose,Urine (UA) 1+ (Negative); Ketones,Urine 1+ (Negative); Leukocyte Esterase,Urine Moderate (Negative); Mucus,Urine Occasional /hpf; Nitrite,Urine Negative (Negative); Protein,Urine Trace (Negative); RBC,Urine 1 /hpf (0-5); Specific Gravity,Urine 1.011 (1.001-1.035); Squamous Epithelial Cell,Urine <1 /hpf (0-4); Urobilinogen,Urine <2.0 mg/dL (<2.0); WBC,Urine 3 /hpf (0-5)
[2023-10-01] MEDS: DILTIAZEM 125 MG in SODIUM CHLORIDE 0.9% 100 ML IV SCH (20:47)
[2023-10-01] MEDS: DILTIAZEM DRIP BOLUS FROM BAG 1 MG SOLN IV ONE (20:48)
[2023-10-01] MEDS: SODIUM CHLORIDE 0.9% 1,000 ML IV STA (20:48)
--- NOTE | 2023-10-01 22:20 | CT ---
EXAMINATION TYPE: CT brain wo con CT DLP: 1095.4 mGycm, Automated exposure control for dose reduction was used. DATE OF EXAM: 10/01/2023 9:20 PM COMPARISON: 01/16/2022 CAT scan CLINICAL INDICATION:Male, 82 years old with history of Altered mental status, AMS TECHNIQUE: Brain: Axial CT images of the brain were obtained with coronal and sagittal reformats created and rev iewed. Contrast used: None. Oral contrast used: None. FINDINGS: Masslike enlargement in the left basal ganglia region measuring approximately 2.4 x 1.9 cm, with vaso genic edema causing partial compression of the anterior horn of the left lateral ventricle. There is an otherwise stable appearance of the ventricular system with moderate generalized ventriculomegaly l ikely related to background volume loss. Patchy and some confluent areas of hypoattenuation throughout the bilateral cerebral white matter is similar to previous, most likely due to chronic microvascular ischemic changes. No evidence of acute intracranial hemorrhage. There is mild midline shift towards the right, at most 3 mm. No herniation is seen at this time. The basilar cisterns are patent. There is no cerebellar tonsillar ectopia. No evidence of acute calvarial fracture. Atherosclerotic calcifications of the large arteries at the skull base noted, especially involving th e bilateral carotid siphons. Paranasal sinuses show minimal mucosal thickening. No acute orbital abnormality is seen. There are postoperative changes involving the bilateral orbits. 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 Recommend further evaluation including MR brain with and without contrast.
[2023-10-01] MEDS ORDERED: NITROGLYCERIN SL TABS 0.4 MG TAB SUBLINGUAL PRN (23:31)
[2023-10-01] MEDS ORDERED: lisinopriL 20 MG TAB PO SCH (23:45)
[2023-10-02] MEDS: DEXAMETHASONE SOD PHOSPHATE 10 MG/ML 1 ML VIAL IVP STA (01:45)
[2023-10-02] MEDS: DILTIAZEM DRIP BOLUS FROM BAG 1 MG SOLN IV ONE (03:11)
[2023-10-02] MEDS: SODIUM CHLORIDE 0.9% 1,000 ML IV SCH (04:02)
[2023-10-02] MEDS: dexAMETHasone 2 MG TAB PO SCH (08:39)
[2023-10-02] MEDS: METOPROLOL TARTRATE 50 MG TAB PO SCH (08:39)
[2023-10-02] MEDS: ASPIRIN 325 MG TAB PO SCH (08:39)
[2023-10-02 08:51] LABS: Chol/HDL Ratio 5.94 Ratio; LDL Cholesterol,Calculated 167.9 mg/dL (0.0-131.0); VLDL Calculation 19.16 mg/dL (5.00-40.00)
[2023-10-02] MEDS ORDERED: atenoloL 50 MG TAB PO SCH (09:00)
--- NOTE | 2023-10-02 11:50 | P.CRDCN ---
History of Present Illness Consult date: 10/02/23 Reason for Consult (text): Atrial fibrillation with RVR History of present illness: This is an 82-year-old male with past medical history of atrial fibrillation, hypertension, dementia. We have been asked to evaluate the patient for A-fib with RVR. Patient apparently resides at [facility] and staff was not able to wake him up. He is normally alert and oriented x 1 only. Patient was brought in by EMS due to altered mental status. Patient is unable to provide any history and does not remember why he is in the hospital. Patient was found to be in A-fib with RVR and started on Cardizem bolus followed by drip. Patient was also found to have a mass on CT of the brain and oncology on consult. EKG: Atrial fibrillation at 119 bpm, atrial fibrillation and 125 bpm Chest x-ray: No acute process CAT scan of the brain: Masslike enlargement and edema involving the left basal ganglia, consider neoplasm. Laboratory studies: WBC 11.5, hemoglobin 18.2. Sodium 142, potassium 4.1, BUN 32 and creatinine 1.19. Troponin 0.055, 0.057 and 0.056. Triglycerides 95, cholesterol 225, LDL 167, HDL 37. Urinalysis moderate leukoesterase. Home cardiac medications: Xarelto 20 mg daily Review Of Systems: At the time of my exam: CONSTITUTIONAL: Denies fever or chills. HEENT: Denies blurred vision, vision changes, or eye pain. Denies hemoptysis CARDIOVASCULAR: Denies chest pain. Denies orthopnea. Denies PND. Denies palpitations RESPIRATORY: Denies shortness of breath. GASTROINTESTINAL: Denies abdominal pain. Denies nausea or vomiting. HEMATOLOGIC: Denies known bleeding disorders. GENITOURINARY: Denies any blood in urine. SKIN: Denies puritis. Denies rash. Physical examination: Gen: This is an 82-year-old male in no acute distress VS: reviewed, blood pressure 167/104, heart rate 111, pulse ox 95% on room air. HEENT: Head is atraumatic, normocephalic. Pupils equal, round. Sclerae is anicteric. NECK: Supple. No JVD. LUNGS: Clear to auscultation. No wheezes or rhonchi. No intercostal retractions. HEART: Irregular rate and rhythm. No murmur. ABDOMEN: Soft No tenderness. EXTREMITIES: No pedal edema. No calf tenderness. NEUROLOGICAL: Patient is awake, alert. Assessment: Elevated troponin most likely secondary to A-fib with RVR. No complaints of chest pain. A-fib with RVR, currently rate moderately controlled Brain mass Hypertension Dementia Hyperlipidemia Plan: Hold Xarelto in light of new diagnosis of brain mass Start patient on Lopressor 50 mg twice daily Plan to wean off Cardizem drip Obtain 2-D echocardiogram and Doppler study to assess cardiac structure and function No plan for aggressive cardiac workup regarding elevated troponins due to patient's underlying dementia, new diagnosis of brain mass. Further recommendations to follow based upon clinical course Thank you kindly for this consultation. Nurse practitioner note has been reviewed, I agree with documented findings and plan of care. Patient was seen and examined. Past Medical History Past Medical History: COPD, CVA/TIA, Diabetes Mellitus Additional Past Medical History / Comment(s): dementia- hallucinations (hearing and seeing things)- symptoms for months. AFIB History of Any Multi-Drug Resistant Organisms: None Reported Additional Past Surgical History / Comment(s): hand surgery Past Anesthesia/Blood Transfusion Reactions: No Reported Reaction Past Psychological History: No Psychological Hx Reported Smoking Status: Never smoker Past Alcohol Use History: Rare Past Drug Use History: Marijuana Medications and Allergies Home Medications Medication Instructions Recorded Confirmed Type Rivaroxaban [Xarelto] 20 mg PO DAILY 01/16/22 10/01/23 History amLODIPine [Norvasc] 5 mg PO DIRECTED 01/16/22 01/16/22 History lisinopriL [Zestril] 20 mg PO DIRECTED 01/16/22 01/16/22 History Allergies Allergy/AdvReac Type Severity Reaction Status Date / Time No Known Allergies Allergy Verified 10/01/23 16:51 Physical Exam Vitals: Vital Signs Temp Pulse Resp BP Pulse Ox 10/02/23 04:00 111 H 18 167/104 95 10/02/23 01:26 97.7 F 113 H 17 192/118 97 10/01/23 23:45 106 H 178/105 95 10/01/23 23:30 120 H 180/117 95 10/01/23 23:15 112 H 181/119 95 10/01/23 23:00 97.7 F 107 H 207/121 96 10/01/23 22:45 118 H 193/116 96 10/01/23 22:30 116 H 198/117 96 10/01/23 22:15 114 H 197/123 94 L 10/01/23 22:00 116 H 185/133 95 10/01/23 21:45 113 H 192/116 96 10/01/23 21:30 114 H 188/135 97 10/01/23 21:15 176/111 10/01/23 21:00 129 H 219/131 10/01/23 20:45 126 H 219/131 10/01/23 20:30 117 H 216/134 10/01/23 20:15 121 H 216/134 10/01/23 20:00 117 H 205/132 10/01/23 19:56 98.5 F 118 H 18 205/132 10/01/23 18:30 120 H 20 188/127 95 10/01/23 17:51 121 H 16 202/125 97 10/01/23 16:46 98.6 F 120 H 20 188/126 99 Intake and Output 10/01/23 10/02/23 10/02/23 22:59 06:59 14:59 Output Total 125 Balance -125 Output: Urine 125 Other: # Voids 1 1 Weight 68.039 kg Results 10/01/23 17:25 10/01/23 18:14 Cardiac Enzymes 10/01/23 10/01/23 10/02/23 Range/Units 18:14 18:14 00:11 AST 54 (17-59) U/L Troponin I 0.055 H* 0.057 H* (0.000-0.034) ng/mL 10/02/23 Range/Units 03:45 AST (17-59) U/L Troponin I 0.056 H* (0.000-0.034) ng/mL Coagulation 10/01/23 Range/Units 18:14 PT 12.5 (10.0-12.5) sec APTT 24.5 (22.0-30.0) sec CBC 10/01/23 Range/Units 17:25 WBC 11.5 H (3.8-10.6) k/uL RBC 5.93 H (4.30-5.90) m/uL Hgb 18.2 H (13.0-17.5) gm/dL Hct 54.2 H (39.0-53.0) % Plt Count (150-450) k/uL Comprehensive Metabolic Panel 10/01/23 Range/Units 18:14 Sodium 142 (137-145) mmol/L Potassium 4.1 (3.5-5.1) mmol/L Chloride 107 (98-107) mmol/L Carbon Dioxide 21 L (22-30) mmol/L BUN 32 H (9-20) mg/dL Creatinine 1.19 (0.66-1.25) mg/dL Glucose 198 H (74-99) mg/dL Calcium 8.8 (8.4-10.2) mg/dL AST 54 (17-59) U/L ALT 21 (4-49) U/L Alkaline Phosphatase 89 (38-126) U/L Total Protein 8.4 H (6.3-8.2) g/dL Albumin 4.4 (3.5-5.0) g/dL Current Medications Generic Name Dose Route Start Last Admin Trade Name Freq PRN Reason Stop Dose Admin Aspirin 325 mg 10/02/23 09:00 Aspirin 325 Mg Tab PO DAILY ENA Atenolol 100 mg 10/02/23 09:00 Atenolol 50 Mg Tab PO DAILY ENA Dexamethasone 6 mg 10/02/23 09:00 Dexamethasone 2 Mg Tab PO BID ENA Diltiazem HCl 125 mg/ Sodium 125 mls @ 5 mls/hr 10/01/23 20:45 10/01/23 20:47 Chloride IV 5 mg/hr .Q24H ENA 5 mls/hr Administration 5 MG/HR Sodium Chloride 1,000 mls @ 75 mls/hr 10/01/23 23:45 10/02/23 04:02 Saline 0.9% IV 75 mls/hr .[id number] ENA Administration Nitroglycerin 0.4 mg 10/01/23 23:31 Nitroglycerin Sl Tabs 0.4 Mg Tab SUBLINGUAL Q5M PRN Chest Pain Intake and Output 10/01/23 10/02/23 10/02/23 22:59 06:59 14:59 Output Total 125 Balance -125 Output: Urine 125 Other: # Voids 1 1 Weight 68.039 kg 10/01/23 17:25 10/01/23 18:14
[2023-10-02 11:57] LABS: Glucose,Whole Blood 289 mg/dL (70-110)
[2023-10-02 15:01] LABS: Glucose,Whole Blood 317 mg/dL (70-110)
[2023-10-02] MEDS ORDERED: IOPAMIDOL CONTRAST (ORAL USE) VIAL PO PRN (16:30)
--- NOTE | 2023-10-02 16:51 | P.CONS ---
History of Present Illness - Reason for Consult Consult date: 10/02/23 brain mass Requesting physician: Papi Smith - Chief Complaint altered mental status - History of Present Illness Patient is an 82-year-old male with a significant history of CVA/TIA, dementia and COPD. Consult was placed for left basal ganglia mass noted on CT brain. Patient presented to the emergency room for altered mental status after being found on the floor by staff at his shelter facility. Upon admission CT brain revealed masslike enlargement in the left basal ganglia region measuring approximately 2.4 x 1.9 cm with vasogenic edema causing partial compression of the anterior horn of the left lateral ventricle. Patient was given IV push dexamethasone 10 mg and was started on 6 mg dexamethasone twice daily. CBC showing WBC 11.5, hemoglobin 18.2, platelets unable to be calculated due to plt agglutination, but appear to be in normal range. Creatinine 1.19, GFR 56, bilirubin 2.1, LFTs WNL. Ammonia < 9. Serial troponins mildly elevated. At today's visit patient is awake and able to answer questions appropriately. No slurred speech or facial droop present. Family at bedside states patient has had some behavioral changes that have been ongoing over the last year or so. He has no personal history of cancer. He also has noted weight loss over the last couple years after the passing of his but no sudden acute drop in weight r ecently. Family is also reporting increased lethargy over the last 24 hours and that he easily falls asleep. They are also concerned that he is having difficulty swallowing his food. Review of Systems 10 point ROS is negative except as stated in the HPI Past Medical History Past Medical History: COPD, CVA/TIA, Diabetes Mellitus Additional Past Medical History / Comment(s): dementia- hallucinations (hearing and seeing things)- symptoms for months. AFIB History of Any Multi-Drug Resistant Organisms: None Reported Additional Past Surgical History / Comment(s): hand surgery Past Anesthesia/Blood Transfusion Reactions: No Reported Reaction Past Psychological History: No Psychological Hx Reported Smoking Status: Never smoker Past Alcohol Use History: Rare Past Drug Use History: Marijuana Medications and Allergies Home Medications Medication Instructions Recorded Confirmed Type Rivaroxaban [Xarelto] 20 mg PO DAILY 01/16/22 10/01/23 History lisinopriL [Zestril] 20 mg PO DIRECTED 01/16/22 10/02/23 History Potassium Chloride ER [K-Dur 20] 10 meq PO DIRECTED 10/02/23 10/02/23 History Potassium Chloride ER [K-Dur 20] 20 meq PO DIRECTED 10/02/23 10/02/23 History Allergies Allergy/AdvReac Type Severity Reaction Status Date / Time No Known Allergies Allergy Verified 10/02/23 13:28 Physical Exam Vitals: Vital Signs Temp Pulse Resp BP Pulse Ox 10/02/23 11:57 81 20 140/78 96 10/02/23 11:09 72 18 140/78 98 10/02/23 11:00 89 18 140/78 96 10/02/23 10:44 90 20 140/78 10/02/23 10:00 81 18 96 10/02/23 09:00 128 H 18 177/111 96 10/02/23 08:41 120 H 16 177/111 96 10/02/23 08:00 118 H 18 145/114 96 10/02/23 04:00 111 H 18 167/104 95 10/02/23 01:26 97.7 F 113 H 17 192/118 97 10/01/23 23:47 189/159 10/01/23 23:45 106 H 178/105 95 10/01/23 23:30 120 H 180/117 95 10/01/23 23:15 112 H 181/119 95 10/01/23 23:00 97.7 F 107 H 207/121 96 10/01/23 22:45 118 H 193/116 96 10/01/23 22:30 116 H 198/117 96 10/01/23 22:15 114 H 197/123 94 L 10/01/23 22:00 116 H 185/133 95 10/01/23 21:45 113 H 192/116 96 10/01/23 21:30 114 H 188/135 97 10/01/23 21:15 176/111 10/01/23 21:00 129 H 219/131 10/01/23 20:45 126 H 219/131 10/01/23 20:30 117 H 216/134 10/01/23 20:15 121 H 216/134 10/01/23 20:00 117 H 205/132 10/01/23 19:56 98.5 F 118 H 18 205/132 10/01/23 18:30 120 H 20 188/127 95 10/01/23 17:51 121 H 16 202/125 97 10/01/23 16:46 98.6 F 120 H 20 188/126 99 Intake and Output 10/01/23 10/02/23 10/02/23 22:59 06:59 14:59 Output Total 125 Balance -125 Output: Urine 125 Other: # Voids 1 1 Weight 68.039 kg - Constitutional General appearance: average body habitus, no acute distress - EENT Eyes: anicteric sclerae, EOMI ENT: hearing grossly normal - Respiratory Respiratory: bilateral: diminished - Cardiovascular well perfused - Gastrointestinal General gastrointestinal: soft, no tenderness - Integumentary Integumentary: no cyanotic - Neurologic left director furniture strength mildly weakened, 4/5, however, multiple finger amputations noted. No slurred speech or facial droop present. Pt is lethargic - Psychiatric Psychiatric: A&O x's 3 Results CBC & Chem 7: 10/01/23 17:25 10/01/23 18:14 Labs: Abnormal Lab Results - Last 24 Hours (Table) 10/01/23 10/01/23 10/01/23 Range/Units 17:25 17:25 18:14 WBC 11.5 H (3.8-10.6) k/uL RBC 5.93 H (4.30-5.90) m/uL Hgb 18.2 H (13.0-17.5) gm/dL Hct 54.2 H (39.0-53.0) % Neutrophils # 8.5 H (1.3-7.7) k/uL INR (<1.2) Carbon Dioxide 21 L (22-30) mmol/L BUN 32 H (9-20) mg/dL Glucose 198 H (74-99) mg/dL POC Glucose (mg/dL) (70-110) mg/dL Total Bilirubin 2.1 H (0.2-1.3) mg/dL Troponin I (0.000-0.034) ng/mL Total Protein 8.4 H (6.3-8.2) g/dL Cholesterol (0.00-200.00) mg/dL LDL Cholesterol, Calc (0.0-131.0) mg/dL HDL Cholesterol (40.00-60.00) mg/dL Urine Protein Trace H (Negative) Urine Glucose (UA) 1+ H (Negative) Urine Ketones 1+ H (Negative) Urine Blood Small H (Negative) Ur Leukocyte Esterase Moderate H (Negative) Urine Bacteria Rare H (None) /hpf Urine Mucus Occasional H (None) /hpf 10/01/23 10/01/23 10/02/23 Range/Units 18:14 18:14 00:11 WBC (3.8-10.6) k/uL RBC (4.30-5.90) m/uL Hgb (13.0-17.5) gm/dL Hct (39.0-53.0) % Neutrophils # (1.3-7.7) k/uL INR 1.2 H (<1.2) Carbon Dioxide (22-30) mmol/L BUN (9-20) mg/dL Glucose (74-99) mg/dL POC Glucose (mg/dL) (70-110) mg/dL Total Bilirubin (0.2-1.3) mg/dL Troponin I 0.055 H* 0.057 H* (0.000-0.034) ng/mL Total Protein (6.3-8.2) g/dL Cholesterol (0.00-200.00) mg/dL LDL Cholesterol, Calc (0.0-131.0) mg/dL HDL Cholesterol (40.00-60.00) mg/dL Urine Protein (Negative) Urine Glucose (UA) (Negative) Urine Ketones (Negative) Urine Blood (Negative) Ur Leukocyte Esterase (Negative) Urine Bacteria (None) /hpf Urine Mucus (None) /hpf 10/02/23 10/02/23 10/02/23 Range/Units 03:45 03:45 11:56 WBC (3.8-10.6) k/uL RBC (4.30-5.90) m/uL Hgb (13.0-17.5) gm/dL Hct (39.0-53.0) % Neutrophils # (1.3-7.7) k/uL INR (<1.2) Carbon Dioxide (22-30) mmol/L BUN (9-20) mg/dL Glucose (74-99) mg/dL POC Glucose (mg/dL) 289 H (70-110) mg/dL Total Bilirubin (0.2-1.3) mg/dL Troponin I 0.056 H* (0.000-0.034) ng/mL Total Protein (6.3-8.2) g/dL Cholesterol 225.00 H (0.00-200.00) mg/dL LDL Cholesterol, Calc 167.9 H (0.0-131.0) mg/dL HDL Cholesterol 37.90 L (40.00-60.00) mg/dL Urine Protein (Negative) Urine Glucose (UA) (Negative) Urine Ketones (Negative) Urine Blood (Negative) Ur Leukocyte Esterase (Negative) Urine Bacteria (None) /hpf Urine Mucus (None) /hpf Chest x-ray: report reviewed CT Scan - head: report reviewed Assessment and Plan (1) Brain mass Current Visit: Yes Status: Acute Priority: High Code(s): G93.89 - OTHER SPECIFIED DISORDERS OF BRAIN SNOMED Code(s): 939372203 (2) Altered mental status Current Visit: Yes Status: Acute Priority: High Code(s): R41.82 - ALTERED MENTAL STATUS, UNSPECIFIED SNOMED Code(s): 823139380 Plan: Basal ganglia mass: Presented to the emergency room for altered mental status after being found on the floor by staff at his shelter facility -Upon admission CT brain revealed masslike enlargement in the left basal ganglia region measuring approximately 2.4 x 1.9 cm with vasogenic edema causing partial compression of the anterior horn of the left lateral ventricle. Patient was given IV push dexamethasone 10 mg and was started on 6 mg dexamethasone twice daily -Will obtain brain MRI for further evaluation of mass, and CT CAP for staging -Agree with dexamethasone Discussed findings and concerns for malignancy with patient and family, they were agreeable with plan Dysphagia: -Will start patient on chopped soft diet -Speech eval requested Attests: I have seen and examined pt, performed H&P, developed impression and plan of care. Discussed with dictator. Agree with documentation, dictated as a scribe
--- NOTE | 2023-10-02 17:16 | CA ---
Transthoracic Echo Report Name: Phoenix Castillo Age: 82 Gender: M : 1940 Exam Date: 10/02/2023 14:33 Exam Location: [facility] Ht (in): 74 Wt (lb): 150 Ordering Physician: Arielle Campbell Attending/Referring Phys: [id number], Adrian Asset Coordinator Felicitas Alonzo RDCS Procedure CPT: Indications: LVF Cardiac Hx: Technical Quality: Technically difficult study Contrast 1: Definity Total Dose (mL): 2 Contrast 2: Total Dose (mL): MEASUREMENTS (Male / Female) Normal Values 2D ECHO LVOT Diameter 2.0 cm LV Diastolic Volume MOD BP 87.3 cm??? 67 - 155 / 56 - 104 cm??? LV Systolic Volume MOD BP 35.0 cm??? 22 - 58 / 19 - 49 cm??? LV Ejection Fraction MOD BP 59.9 % >= 55 % LV Cardiac Index MOD BP 2489.6 cm???/min???m??? LV Diastolic Volume MOD 4C 81.0 cm??? LV Systolic Volume MOD 4C 36.2 cm??? LV Ejection Fraction MOD 4C 55.4 % LV Cardiac Index MOD 4C 2133.7 cm???/min???m??? LV Diastolic Length 4C 8.0 cm LV Systolic Length 4C 7.1 cm LV Diastolic Volume MOD 2C 91.0 cm??? LV Systolic Volume MOD 2C 32.8 cm??? LV Ejection Fraction MOD 2C 64.0 % LV Cardiac Index MOD 2C 2769.0 cm???/min???m??? LV Diastolic Length 2C 7.7 cm LV Systolic Length 2C 6.5 cm LA Volume 112.3 cm??? 18 - 58 / 22 - 52 cm??? LA Volume Index 60.0 cm???/m??? 16 - 28 cm???/m??? Ascending Aorta Diameter 3.5 cm DOPPLER AV Peak Velocity 139.2 cm/s AV Peak Gradient 7.8 mmHg AV Mean Velocity 101.6 cm/s AV Mean Gradient 4.5 mmHg AV Velocity Time Integral 24.6 cm LVOT Peak Velocity 84.2 cm/s LVOT Peak Gradient 2.8 mmHg LVOT Velocity Time Integral 13.3 cm LVOT Stroke Volume 39.8 cm??? LVOT Stroke Volume Index 20.7 ml/m??? LVOT Cardiac Index 1894.5 cm???/min???m??? AV Area Cont Eq vti 1.6 cm??? AV Area Cont Eq pk 1.8 cm??? FINDINGS Left Ventricle Left ventricular ejection fraction is estimated at 50-55 %. Left ventricular cavity size normal. Left ventricular wall thickness normal. Hypokinetic basal segments. Right Ventricle Right ventricle not well visualized. Unable to estimate the right ventricular systolic pressure. Right Atrium Right atrium not well visualized. Left Atrium Severely increased left atrial volume. Moderately increased left atrial area. Mitral Valve Structurally normal mitral valve. No evidence for mitral valve prolapse. No mitral stenosis. Trace mitral regurgitation. Aortic Valve Trileaflet aortic valve. Aortic valve sclerosis. No aortic stenosis. No aortic regurgitation. Tricuspid Valve Structurally normal tricuspid valve. No tricuspid stenosis. No tricuspid regurgitation. Pulmonic Valve Pulmonic valve not well visualized. No pulmonic stenosis. Trace pulmonic regurgitation. Pericardium No pericardial effusion. Aorta Normal size aortic root and proximal ascending aorta. CONCLUSIONS Normal LV function Previewed by: Dr. Phan Renee MD (Electronically Signed) Final Date: 02 October 2023 17:15
[2023-10-02] MEDS: DEXAMETHASONE SOD PHOSPHATE 10 MG/ML 1 ML VIAL IVP SCH (18:30)
--- NOTE | 2023-10-02 23:16 | P.HPIM ---
History of Present Illness H&P Date: 10/02/23 Chief Complaint: Altered mental status 82-year-old male with past medical history of atrial fibrillation, hypertension, dementia. We have been asked to evaluate the patient for A-fib with RVR. Patient apparently resides at [facility] and staff was not able to wake hi m up. He is normally alert and oriented x 1 only. Patient was brought in by EMS due to altered mental status. Patient is unable to provide any history and does not remember why he is in the hospital. Patient was found to be in A-fib with RVR and started on Cardizem bolus followed by drip. Patient was also found to have a mass on CT of the brain and oncology on consult. EKG: Atrial fibrillation at 119 bpm, atrial fibrillation and 125 bpm Chest x-ray: No acute process CAT scan of the brain: Masslike enlargement and edema involving the left basal ganglia, consider neoplasm. Laboratory studies: WBC 11.5, hemoglobin 18.2. Sodium 142, potassium 4.1, BUN 32 and creatinine 1.19. Troponin 0.055, 0.057 and 0.056. Triglycerides 95, cholesterol 225, LDL 167, HDL 37. Urinalysis moderate leukoesterase. Home cardiac medications: Xarelto 20 mg daily Review of Systems REVIEW OF SYSTEMS: CONSTITUTIONAL: No fever, no malaise, no fatigue. HEENT: No recent visual problems or hearing problems. Denied any sore throat. CARDIOVASCULAR: No chest pain, orthopnea, PND, no palpitations, no syncope. PULMONARY: No shortness of breath, no cough, no hemoptysis. GASTROINTESTINAL: No diarrhea, no nausea, no vomiting, no abdominal pain. NEUROLOGICAL: No headaches, no weakness, no numbness. HEMATOLOGICAL: Denies any bleeding or petechiae. GENITOURINARY: Denies any burning micturition, frequency, or urgency. MUSCULOSKELETAL/RHEUMATOLOGICAL: Denies any joint pain, swelling, or any muscle pain. ENDOCRINE: Denies any polyuria or polydipsia. The rest of the 14-point review of systems is negative. Past Medical History Past Medical History: COPD, CVA/TIA, Diabetes Mellitus Additional Past Medical History / Comment(s): dementia- hallucinations (hearing and seeing things)- symptoms for months. AFIB History of Any Multi-Drug Resistant Organisms: None Reported Additional Past Surgical History / Comment(s): hand surgery Past Anesthesia/Blood Transfusion Reactions: No Reported Reaction Past Psychological History: No Psychological Hx Reported Smoking Status: Never smoker Past Alcohol Use History: Rare Past Drug Use History: Marijuana Medications and Allergies Home Medications Medication Instructions Recorded Confirmed Type Rivaroxaban [Xarelto] 20 mg PO DAILY 01/16/22 10/01/23 History lisinopriL [Zestril] 20 mg PO DIRECTED 01/16/22 10/02/23 History Potassium Chloride ER [K-Dur 20] 10 meq PO DIRECTED 10/02/23 10/02/23 History Potassium Chloride ER [K-Dur 20] 20 meq PO DIRECTED 10/02/23 10/02/23 History Allergies Allergy/AdvReac Type Severity Reaction Status Date / Time No Known Allergies Allergy Verified 10/02/23 13:28 Physical Exam Vitals: Vital Signs Temp Pulse Resp BP Pulse Ox 10/02/23 11:57 81 20 140/78 96 10/02/23 11:09 72 18 140/78 98 10/02/23 11:00 89 18 140/78 96 10/02/23 10:44 90 20 140/78 10/02/23 10:00 81 18 96 10/02/23 09:00 128 H 18 177/111 96 10/02/23 08:41 120 H 16 177/111 96 10/02/23 08:00 118 H 18 145/114 96 10/02/23 04:00 111 H 18 167/104 95 10/02/23 01:26 97.7 F 113 H 17 192/118 97 10/01/23 23:47 189/159 10/01/23 23:45 106 H 178/105 95 10/01/23 23:30 120 H 180/117 95 10/01/23 23:15 112 H 181/119 95 10/01/23 23:00 97.7 F 107 H 207/121 96 10/01/23 22:45 118 H 193/116 96 10/01/23 22:30 116 H 198/117 96 10/01/23 22:15 114 H 197/123 94 L 10/01/23 22:00 116 H 185/133 95 10/01/23 21:45 113 H 192/116 96 10/01/23 21:30 114 H 188/135 97 06/06/24 21:15 176/111 10/01/23 21:00 129 H 219/131 10/01/23 20:45 126 H 219/131 10/01/23 20:30 117 H 216/134 10/01/23 20:15 121 H 216/134 10/01/23 20:00 117 H 205/132 10/01/23 19:56 98.5 F 118 H 18 205/132 10/01/23 18:30 120 H 20 188/127 95 10/01/23 17:51 121 H 16 202/125 97 10/01/23 16:46 98.6 F 120 H 20 188/126 99 Intake and Output 10/01/23 10/02/23 10/02/23 22:59 06:59 14:59 Output Total 125 Balance -125 Output: Urine 125 Other: # Voids 1 1 Weight 68.039 kg Physical examination: Gen: This is an 82-year-old male in no acute distress VS: reviewed, blood pressure 167/104, heart rate 111, pulse ox 95% on room air. HEENT: Head is atraumatic, normocephalic. Pupils equal, round. Sclerae is anicteric. NECK: Supple. No JVD. LUNGS: Clear to auscultation. No wheezes or rhonchi. No intercostal retractions. HEART: Irregular rate and rhythm. No murmur. ABDOMEN: Soft No tenderness. EXTREMITIES: No pedal edema. No calf tenderness. NEUROLOGICAL: Patient is awake, alert. Results CBC & Chem 7: 10/01/23 17:25 10/01/23 18:14 Labs: Abnormal Lab Results - Last 24 Hours (Table) 10/01/23 10/01/23 10/01/23 Range/Units 17:25 17:25 18:14 WBC 11.5 H (3.8-10.6) k/uL RBC 5.93 H (4.30-5.90) m/uL Hgb 18.2 H (13.0-17.5) gm/dL Hct 54.2 H (39.0-53.0) % Neutrophils # 8.5 H (1.3-7.7) k/uL INR (<1.2) Carbon Dioxide 21 L (22-30) mmol/L BUN 32 H (9-20) mg/dL Glucose 198 H (74-99) mg/dL POC Glucose (mg/dL) (70-110) mg/dL Total Bilirubin 2.1 H (0.2-1.3) mg/dL Troponin I (0.000-0.034) ng/mL Total Protein 8.4 H (6.3-8.2) g/dL Cholesterol (0.00-200.00) mg/dL LDL Cholesterol, Calc (0.0-131.0) mg/dL HDL Cholesterol (40.00-60.00) mg/dL Urine Protein Trace H (Negative) Urine Glucose (UA) 1+ H (Negative) Urine Ketones 1+ H (Negative) Urine Blood Small H (Negative) Ur Leukocyte Esterase Moderate H (Negative) Urine Bacteria Rare H (None) /hpf Urine Mucus Occasional H (None) /hpf 10/01/23 10/01/23 10/02/23 Range/Units 18:14 18:14 00:11 WBC (3.8-10.6) k/uL RBC (4.30-5.90) m/uL Hgb (13.0-17.5) gm/dL Hct (39.0-53.0) % Neutrophils # (1.3-7.7) k/uL INR 1.2 H (<1.2) Carbon Dioxide (22-30) mmol/L BUN (9-20) mg/dL Glucose (74-99) mg/dL POC Glucose (mg/dL) (70-110) mg/dL Total Bilirubin (0.2-1.3) mg/dL Troponin I 0.055 H* 0.057 H* (0.000-0.034) ng/mL Total Protein (6.3-8.2) g/dL Cholesterol (0.00-200.00) mg/dL LDL Cholesterol, Calc (0.0-131.0) mg/dL HDL Cholesterol (40.00-60.00) mg/dL Urine Protein (Negative) Urine Glucose (UA) (Negative) Urine Ketones (Negative) Urine Blood (Negative) Ur Leukocyte Esterase (Negative) Urine Bacteria (None) /hpf Urine Mucus (None) /hpf 10/02/23 10/02/23 10/02/23 Range/Units 03:45 03:45 11:56 WBC (3.8-10.6) k/uL RBC (4.30-5.90) m/uL Hgb (13.0-17.5) gm/dL Hct (39.0-53.0) % Neutrophils # (1.3-7.7) k/uL INR (<1.2) Carbon Dioxide (22-30) mmol/L BUN (9-20) mg/dL Glucose (74-99) mg/dL POC Glucose (mg/dL) 289 H (70-110) mg/dL Total Bilirubin (0.2-1.3) mg/dL Troponin I 0.056 H* (0.000-0.034) ng/mL Total Protein (6.3-8.2) g/dL Cholesterol 225.00 H (0.00-200.00) mg/dL LDL Cholesterol, Calc 167.9 H (0.0-131.0) mg/dL HDL Cholesterol 37.90 L (40.00-60.00) mg/dL Urine Protein (Negative) Urine Glucose (UA) (Negative) Urine Ketones (Negative) Urine Blood (Negative) Ur Leukocyte Esterase (Negative) Urine Bacteria (None) /hpf Urine Mucus (None) /hpf Assessment and Plan Assessment: 1. Elevated troponin most likely secondary to A-fib with RVR. No complaints of chest pain. --Cardiology on board. No plans for aggressive cardiac workup for elevated troponin due to underlying dementia with new diagnosis of a brain mass 2. A-fib with RVR, currently rate moderately controlled; cardiology recommending to start patient on Lopressor 50 mg twice daily. Plan to wean off Cardizem drip. Xarelto was placed on hold given diagnosis of a brain mass; 2D echo is ordered and pending 3. Brain mass; CT of the brain reveals mass like enlargement in the left basal ganglia measuring approximately 2.4 x 1.9 cm with vasogenic edema causing partial compression of anterior horn of lateral ventricle on the left. --Patient received IV dexamethasone 10 mg x 1 and will be started on dexamethasone 6 mg twice daily by oncology service -- MRI of the brain is recommended with CT of the chest abdomen and pelvis for staging 4. Hypertension; Lopressor 50 mg twice daily 5. Hyperlipidemia; currently not on any statin therapy 6. Dementia with dysphagia; patient has been placed on chopped soft diet; speech evaluation ordered and pending DVT prophylaxis; SCDs only given new diagnosis of brain mass and need for furt her workup CODE STATUS; full code
--- NOTE | 2023-10-03 07:45 | CT ---
EXAMINATION TYPE: CT ChestAbdPelvis w con CT DLP: 1667.8 mGycm, Automated exposure control for dose reduction was used. DATE OF EXAM: 10/02/2023 7:54 PM COMPARISON: None. CLINICAL INDICATION:Male, 82 years old with history of brain mass, staging; PHH, OBS for mets, brain mass. Technique: CT ChestAbdPelvis w con; Multiple axial images were obtained. Two-dimensional coronal and sagittal reconstructions were obtained. Contrast used:80ml mL of Isovue 300 with IV Contrast, Oral contrast used: with Oral Contrast Findings: CHEST: LUNGS/ PLEURA: 4 mm right upper lung pulmonary nodule. Left upper lung 5 mm pulmonary nodule AIRWAY: Patent and unremarkable. HEART: Size within normal limits. MEDIASTINUM: No gross evidence of adenopathy. VASCULATURE: No aortic aneurysm. Right lower lung pulmonary artery filling defect MUSCULOSKELETAL: No acute osseous abnormalities. SOFT TISSUES/LYMPH NODES: Unremarkable. LOWER NECK: No significant findings. ABDOMEN: ABDOMEN LIVER: Unremarkable GALLBLADDER AND BILE DUCTS: Unremarkable. PANCREAS: Unremarkable. SPLEEN: Scattered calcified granulomas. ADRENAL GLANDS: Unremarkable. KIDNEYS AND URETERS: No evidence of hydronephrosis or renal calculus. The ureters are unremarkable. B ilateral simple appearing renal cysts. . PELVIS BLADDER: Unremarkable REPRODUCTIVE: Prostate is enlarged in size measuring 6.4 cm in transverse dimension. ABDOMEN & PELVIS STOMACH AND BOWEL: No evidence of bowel obstruction. Scattered colonic diverticula. PERITONEUM: No evidence of pneumoperitoneum or free fluid. VASCULATURE: No evidence of aortic aneurysm. MUSCULOSKELETAL: No acute osseous abnormalities LYMPH NODES: No gross evidence for lymphadenopathy. SOFT TISSUE/ABDOMINAL WALL: Unremarkable IMPRESSION: 1. Right pulmonary embolus no evidence of right heart strain. 2. Subcentimeter pulmonary nodules which are indeterminate given patient's history of cancer. 3. Prostatomegaly, correlate with serum PSA. 4. Colonic diverticulosis. 5. Cholelithiasis. Findings communicated to Dr. Prater on 10/02/2023 8:[address] Yves Nieves.
[2023-10-03 08:20] LABS: Basophils % (A) 0 %; Eosinophils % (A) 0 %; HCT 49.4 % (39.0-53.0); HGB 15.9 gm/dL (13.0-17.5); Lymphocytes # (A) 0.9 k/uL (1.0-4.8); Lymphocytes % (A) 5 %; MCH 29.8 pg (25.0-35.0); MCHC 32.2 g/dL (31.0-37.0); MCV 92.5 fL (80.0-100.0); Mean Platelet Volume 10.1; Monocytes # (A) 0.7 k/uL (0-1.0); Monocytes % (A) 4 %; Neutrophils # (A) 16.2 k/uL (1.3-7.7); Neutrophils % (A) 90 %; Platelet Count 114 k/uL (150-450); RBC 5.34 m/uL (4.30-5.90); RDW 13.6 % (11.5-15.5); WBC 17.9 k/uL (3.8-10.6)
[2023-10-03 08:48] LABS: African American GFR (CKD) 76 (>60 ml/min/1.73 sqM); Anion Gap 6 mmol/L; Blood Urea Nitrogen 38 mg/dL (9-20); Calcium 8.4 mg/dL (8.4-10.2); Carbon Dioxide 25 mmol/L (22-30); Chloride 102 mmol/L (98-107); Glucose 338 mg/dL (74-99); Non-African American GFR(CKD) 66 (>60 ml/min/1.73 sqM); Potassium 3.6 mmol/L (3.5-5.1); Sodium 133 mmol/L (137-145)
--- NOTE | 2023-10-03 09:55 | P.GSCN ---
History of Present Illness Consult date: 10/03/23 History of present illness: Patient is an 82-year-old male with a known history of A-fib, hypertension and dementia who was brought in due to altered mental status. During workup and evaluation was found to have a mass in his brain on CT of the basal ganglia. For this oncology was consulted. Patient previously was on Xarelto for A-fib on further workup and imaging with CT scan of the chest did show evidence of a right-sidedPulmonary embolism/filling defect Past Medical History Past Medical History: COPD, CVA/TIA, Diabetes Mellitus Additional Past Medical History / Comment(s): dementia- hallucinations (hearing and seeing things)- symptoms for months. AFIB History of Any Multi-Drug Resistant Organisms: None Reported Additional Past Surgical History / Comment(s): hand surgery Past Anesthesia/Blood Transfusion Reactions: No Reported Reaction Past Psychological History: No Psychological Hx Reported Additional Psychological History / Comment(s): Alzheimers dementia Smoking Status: Never smoker Past Alcohol Use History: Rare Past Drug Use History: Marijuana Medications and Allergies Home Medications Medication Instructions Recorded Confirmed Type Rivaroxaban [Xarelto] 20 mg PO DAILY 01/16/22 10/01/23 History lisinopriL [Zestril] 20 mg PO DIRECTED 01/16/22 10/02/23 History Potassium Chloride ER [K-Dur 20] 10 meq PO DIRECTED 10/02/23 10/02/23 History Potassium Chloride ER [K-Dur 20] 20 meq PO DIRECTED 10/02/23 10/02/23 History Allergies Allergy/AdvReac Type Severity Reaction Status Date / Time No Known Allergies Allergy Verified 10/02/23 13:28 Surgical - Exam Vital Signs Temp Pulse Resp BP Pulse Ox 98.6 F 120 H 20 188/126 99 10/01/23 16:46 10/01/23 16:46 10/01/23 16:46 10/01/23 16:46 10/01/23 16:46 No acute distress, pleasant tachycardic, heart regular. No respiratory distress. Results CT scan reviewed of the chest. Small area of right filling defect - Labs 10/03/23 07:53 10/03/23 07:47 Abnormal Lab Results - Last 24 Hours (Table) 10/02/23 10/02/23 10/03/23 Range/Units 11:56 14:59 07:47 WBC (3.8-10.6) k/uL Plt Count (150-450) k/uL Neutrophils # (1.3-7.7) k/uL Lymphocytes # (1.0-4.8) k/uL Sodium 133 L (137-145) mmol/L BUN 38 H (9-20) mg/dL Glucose 338 H (74-99) mg/dL POC Glucose (mg/dL) 289 H 317 H (70-110) mg/dL 10/03/23 Range/Units 07:53 WBC 17.9 H (3.8-10.6) k/uL Plt Count 114 L (150-450) k/uL Neutrophils # 16.2 H (1.3-7.7) k/uL Lymphocytes # 0.9 L (1.0-4.8) k/uL Sodium (137-145) mmol/L BUN (9-20) mg/dL Glucose (74-99) mg/dL POC Glucose (mg/dL) (70-110) mg/dL Microbiology - Last 24 Hours (Table) 10/01/23 17:39 Blood Culture - Preliminary Blood 10/01/23 17:20 Blood Culture - Preliminary Blood Diabetes panel 10/03/23 Range/Units 07:47 Sodium 133 L (137-145) mmol/L Potassium 3.6 (3.5-5.1) mmol/L Chloride 102 (98-107) mmol/L Carbon Dioxide 25 (22-30) mmol/L BUN 38 H (9-20) mg/dL Creatinine 1.04 (0.66-1.25) mg/dL Glucose 338 H (74-99) mg/dL Calcium 8.4 (8.4-10.2) mg/dL Calcium panel 10/03/23 Range/Units 07:47 Calcium 8.4 (8.4-10.2) mg/dL Pituitary panel 10/03/23 Range/Units 07:47 Sodium 133 L (137-145) mmol/L Potassium 3.6 (3.5-5.1) mmol/L Chloride 102 (98-107) mmol/L Carbon Dioxide 25 (22-30) mmol/L BUN 38 H (9-20) mg/dL Creatinine 1.04 (0.66-1.25) mg/dL Glucose 338 H (74-99) mg/dL Calcium 8.4 (8.4-10.2) mg/dL Adrenal panel 10/03/23 Range/Units 07:47 Sodium 133 L (137-145) mmol/L Potassium 3.6 (3.5-5.1) mmol/L Chloride 102 (98-107) mmol/L Carbon Dioxide 25 (22-30) mmol/L BUN 38 H (9-20) mg/dL Creatinine 1.04 (0.66-1.25) mg/dL Glucose 338 H (74-99) mg/dL Calcium 8.4 (8.4-10.2) mg/dL Assessment and Plan Assessment: Right pulmonary embolism/filling defect Left basal ganglia brain mass Plan: Due to brain mass and lung filling defect is recommended he be evaluated for IVC filter. From my standpoint uncertain as for true contraindication, would consider anticoagulation with repeat head CT in 24 hours. Await lower extremity venous duplex. Would consider filter if patient with positive lower extremity DVT versus continued anticoagulation.
--- NOTE | 2023-10-03 10:08 | P.PN ---
Subjective Progress Note Date: 10/03/23 Principal diagnosis: Atrial fibrillation The patient is a pleasant 82-year-old gentleman who was admitted to the hospital with a change in mental status and was found to have abnormal troponin as well as atrial fibrillation. He was on oral anticoagulation. He was diagnosed with a brain mass. We stop anticoagulation at this point because of the recent diagnosis of brain mass October 03, 2023 The patient was seen and evaluated this morning. He is feeling slightly better but he is in process of having an MRI of the brain for further risk stratification. Anticoagulation continues to be on hold. The examination is remarkable for irregular rhythm with controlled heart rate and remains in atrial fibrillation with controlled heart rate. Assessment Change in mental status Recent diagnosis of a brain mass Atrial fibrillation with controlled heart rate Multiple comorbid conditions Plan Continue the current medical regimen Continue holding oral anticoagulation for now Follow-up with the pt Objective - Vital Signs Vital signs: Vital Signs Temp 97.9 F 10/03/23 08:44 Pulse 100 10/03/23 08:44 Resp 18 10/03/23 08:44 BP 147/99 10/03/23 08:44 Pulse Ox 95 10/03/23 08:44 FiO2 Intake & Output 10/02/23 10/03/23 10/03/23 18:59 06:59 18:59 Intake Total 450 Balance 450 Weight 68.039 kg Intake: Intake, IV Titration 450 Amount Sodium Chloride 0.9% 1, 450 000 ml @ 75 mls/hr IV . [id number] [facility] Rx#:[id number] Other: Voiding Method Toilet Bedside Commode # Voids 1 4 # Bowel Movements 2 - Labs CBC & Chem 7: 10/03/23 07:53 10/03/23 07:47 Labs: Abnormal Lab Results - Last 24 Hours (Table) 10/02/23 10/02/23 10/03/23 Range/Units 11:56 14:59 07:47 WBC (3.8-10.6) k/uL Plt Count (150-450) k/uL Neutrophils # (1.3-7.7) k/uL Lymphocytes # (1.0-4.8) k/uL Sodium 133 L (137-145) mmol/L BUN 38 H (9-20) mg/dL Glucose 338 H (74-99) mg/dL POC Glucose (mg/dL) 289 H 317 H (70-110) mg/dL 10/03/23 Range/Units 07:53 WBC 17.9 H (3.8-10.6) k/uL Plt Count 114 L (150-450) k/uL Neutrophils # 16.2 H (1.3-7.7) k/uL Lymphocytes # 0.9 L (1.0-4.8) k/uL Sodium (137-145) mmol/L BUN (9-20) mg/dL Glucose (74-99) mg/dL POC Glucose (mg/dL) (70-110) mg/dL Microbiology - Last 24 Hours (Table) 10/01/23 17:39 Blood Culture - Preliminary Blood 10/01/23 17:20 Blood Culture - Preliminary Blood
--- NOTE | 2023-10-03 10:18 | US ---
EXAMINATION TYPE: US venous doppler duplex LE BI DATE OF EXAM: 10/03/2023 9:43 AM COMPARISON: NONE CLINICAL INDICATION: Male, 82 years old with history of PE, baseline study; PE SIDE PERFORMED: Bilateral TECHNIQUE: The lower extremity deep venous system is examined utilizing real time linear array sonog anastasia with graded compression, doppler sonography and color-flow sonography. VESSELS IMAGED: Common Femoral Vein Deep Femoral Vein Greater Saphenous Vein * Femoral Vein Popliteal Vein Small Saphenous Vein * Proximal Calf Veins (* superficial vessels) Right Leg: Echoes seen from prox popliteal vein to mid calf veins. No compression or blood flow seen Left Leg: No evidence for DVT Grayscale, color doppler, spectral doppler imaging performed of the deep veins of the lower extremiti es. There is normal flow, compressibility, vascular waveforms. IMPRESSION: Deep vein thrombosis of the right lower extremity from the popliteal vein into the calf.
--- NOTE | 2023-10-03 11:22 | MR ---
EXAMINATION TYPE: MR brain wo/w con DATE OF EXAM: 10/03/2023 10:45 AM CLINICAL INDICATION:Male, 82 years old with history of CT findings left basal ganglia mass; PHH, CT f indings left basal ganglia mass COMPARISON: MRI 12/01/2011 TECHNIQUE: Multi planar, multi sequence imaging was performed through the brain including: T1, T2, In version recovery, susceptibility weighted imaging and gradient echo imaging and Diffusion weighted im aging. The patient was then given intravenous contrast and multi planar, T1 fat-saturation images wer e obtained. IV Contrast: 7 cc Gadavist FINDINGS: Left basal ganglia/caudate nucleus mass with heterogenous hypoenhancement measuring up to 2 7 x 19 x 26 mm. There is susceptibility weighted blooming artifact throughout this lesion and restric kenneth diffusion within this lesion. No additional abnormal enhancement identified. There is mild cerebr al atrophy changes. The bone marrow signal is within normal limits. Paranasal sinuses and mastoid air cells: No significant paranasal sinus disease. Visualized orbits: Orbital contents are intact. IMPRESSION: New from 2012 Left basal ganglia mass with hypoenhancement which could represent hemorrhagic primary glioma or secondary malignancy (metastatic disease). Cavernoma is felt to be less likely given no fin ding on 2012 study. No additional abnormal enhancement seen throughout the brain.
[2023-10-03] MEDS ORDERED: DEXTROSE 50% SYRINGE 50 ML IVP PRN ×2 (12:36)
[2023-10-03] MEDS ORDERED: ZINC OXIDE PASTE (Z-GUARD) 1 APPLIC TOPICAL PRN (12:46)
--- NOTE | 2023-10-03 16:02 | P.CNNES ---
History of Present Illness Consult date: 10/03/23 Requesting physician: Kiara Vilchis Reason for Consult: Rec on anticoagulation with brain mass History of Present Illness: Patient is a 82-year-old right-handed male with history of mild dementia, atrial fibrillation, currently lives in [facility], was brought to the hospital by ambulance 2 days ago at 4:32 PM for altered mental status. Patient has limited mobility, does not use any device. He walks from his bed to the chair, and to the bathroom, but he does go out in the dining area for lunch and dinner every day. He apparently broke his pattern, was not seen in the dining area, therefore EMS was sent for a welfare check, and he was found on the floor. As per EMS flowsheet, when they arrived, patient was laying supine on his living room floor in care of fire department. Patient states that the last thing he remembers in getting into bed at 10 PM last night. Patient does not remember g etting out of bed. Patient was found at approximately 3:30 PM in the afternoon by staff at [facility]. Patient was able to answer some questions but was slow to answer. Patient was alert, oriented to person, place and date. Pupils are equal and round. Patient's apartment was very hot inside and no windows were open. Patient was able to move all extremities, no arm drift noted. Speech was clear. Corporate Training Manager strength was equal. Patient was able to lift legs in the air. Manual blood pressure 200/110, with heart rate of 102, respiration 20. Lungs were clear. No incontinence of urine or feces noted. Patient denied any headache, no bruising or swelling or open wounds. Blood sugar was 190 mg/dL. EKG showed atrial fibrillation with rapid ventricular rate. Patient was brought to the hospital. Blood test shows normal electrolytes, BUN 32 creatinine 1.19. Hepatic panel is normal, troponin is mildly elevated. WBC 11.5 hemoglobin 18.2 platelets not checked initially but is 114. EKG shows atrial fibrillation with rapid ventricular rate. Chest x-ray shows borderline heart size with no acute process. CT head revealed masslike enlargement and edema involving the left basal ganglia, likely consideration include underlying neoplasm. Recommend further evaluation including MRI of the brain with and without contrast. CT of the chest abdomen pelvis revealed right pulmonary embolus, with no evidence of heart strain. Subcentimeter pulmonary nodules which are indeterminate given patient's history of cancer. Prostatomegaly, correlate with serum PSA. Colonic diverticulosis and cholelithiasis. Venous Doppler of the lower extremities revealed DVT of the right lower extremity from popliteal vein into the calf. Patient currently takes lisinopril, Xarelto 20 mg, potassium. I spoke to patient's daughter, who states that she had some disagreement with the dad, therefore she has not seen him since December 2022. He does not speak too much of his other 3 children as well. Patient's sister also arrived, who states that patient is very stubborn, and one of the daughter was watching his medication and he became upset and he did not want her to come over. He states that he walks by himself does not use any device. Daughter states that he has very limited walking only from the bed to the chair and then to the bathroom and then to the dining area. He does have a bedsore noticed by the nursing staff as per patient's daughter. Patient's sister also mentions that since around Chancellor time, he has these episodes, in which he would stare into "nothing". He is awake and look and last for about 1 to 2 minutes. When she is with him for about couple hours, it would happen 3 or 4 times. Patient admits to missing the dose of his medications but could not tell how often. Patient's sister mentions that for the last couple months, he is decided that he will take medication only when he feels like taking it. He has told her that he takes Xarelto more regularly but not other medications. Even she is not sure how often if he misses Xarelto. Patient states that his dog stays with him and helps him a lot. He has never smoked, does not drink alcohol. Patient denies any stroke symptoms like slurred speech facial droop any problem with the vision. No previous history of cancer. Patient's daughter admits that he does have mild dementia, but he does not hallucinate, does not wander, no sundowners. He does repeat and forgets. He still knows his friends and family very well. Review of Systems Constitutional: Denies chills, Denies fever Eyes: denies blurred vision, denies diplopia, denies pain, denies loss of peripheral vision Ears: deny: decreased hearing, ear discharge Ears, nose, mouth and throat: Denies headache, Denies sore throat, Denies vertigo Cardiovascular: Denies chest pain, Denies lightheadedness, Denies shortness of breath Respiratory: Denies cough, Denies excessive sputum Gastrointestinal: Denies abdominal pain, Denies diarrhea, Denies nausea, Denies vomiting Genitourinary: Denies dysuria, Denies incontinence, Denies urinary frequency Musculoskeletal: Denies low back pain, Denies neck pain Integumentary: Denies pruritus, Denies rash Neurological: Reports as per HPI Psychiatric: Reports memory loss, Denies anxiety, Denies depression Hematologic/Lymphatic: Denies easy bleeding, Denies easy bruising Past Medical History Past Medical History: COPD, CVA/TIA, Diabetes Mellitus Additional Past Medical History / Comment(s): dementia- hallucinations (hearing and seeing things)- symptoms for months. AFIB History of Any Multi-Drug Resistant Organisms: None Reported Additional Past Surgical History / Comment(s): hand surgery Past Anesthesia/Blood Transfusion Reactions: No Reported Reaction Past Psychological History: No Psychological Hx Reported Additional Psychological History / Comment(s): Alzheimers dementia Smoking Status: Never smoker Past Alcohol Use History: Rare Past Drug Use History: Marijuana Medications and Allergies Home Medications Medication Instructions Recorded Confirmed Type Rivaroxaban [Xarelto] 20 mg PO DAILY 01/16/22 10/01/23 History lisinopriL [Zestril] 20 mg PO DIRECTED 01/16/22 10/02/23 History Potassium Chloride ER [K-Dur 20] 10 meq PO DIRECTED 10/02/23 10/02/23 History Potassium Chloride ER [K-Dur 20] 20 meq PO DIRECTED 10/02/23 10/02/23 History Allergies Allergy/AdvReac Type Severity Reaction Status Date / Time No Known Allergies Allergy Verified 10/02/23 13:28 Physical Examination - Vital Signs Vital Signs: Vital Signs Temp Pulse Pulse Resp BP BP Pulse Ox 10/03/23 11:07 98.0 F 71 16 156/81 95 10/03/23 08:44 97.9 F 100 18 147/99 95 10/03/23 08:00 71 16 10/03/23 04:00 97.4 F L 94 18 147/87 95 10/02/23 22:45 97.5 F L 94 16 148/85 96 10/02/23 20:47 84 18 157/99 98 10/02/23 18:30 76 18 147/83 97 10/02/23 18:00 98 18 136/97 93 L 10/02/23 16:00 86 18 136/93 97 Intake and Output 10/02/23 10/03/23 10/03/23 22:59 06:59 14:59 Intake Total 118 Balance 118 Intake: Oral 118 Other: Voiding Method Toilet Bedside Commode Incontinent External Catheter # Voids 4 1 # Bowel Movements 2 Weight 68.039 kg Patient is an elderly male, in no acute distress. Patient does have a flat affect. Patient is alert awake, in no distress. Patient could not tell the current month or the year and he believes it is a fall season. He does not know what city he is in although he knows that he is in [place] and is in a medical building. He is hard of hearing. He believes Dima Guevara is a current president. Speech and language functions appears normal. Patient can name most objects presented including knuckles, button, collar, ear, but he could not tell the earlobe (says bottom of the ear) and repeat very well. No aphasia or dysarthria. Attention, concentration intact and fund of knowledge is limited. On cranial nerve examination, pupils are equal, round and reacting to light, visual price are full on confrontation, with no neglect on double simultaneous stimulation. Extraocular muscles are intact with no nystagmus. Face is symmetric, tongue protrudes to the midline. Palatal elevation and sensation normal, hearing is mild to moderately decreased and shoulder shrug normal, facial sensation normal. On muscle strength testing, there is mild right pronator drift and the strength is normal in arms and legs distally and proximally, except hip flexion which is 4 bilaterally. Deep tendon reflexes are symmetric trace to 1 all over and plantars downgoing bilaterally. Sensory to touch is equal with no neglect on double simultaneous stimulation. Cerebellar function showed no ataxia for [id number] testing. No dysdiadochokinesia. No ataxia for [id number] testing on either side. Tone and bulk of muscles normal. Gait deferred.. On general examination, there is no carotid bruit or murmur, S1-S2 audible. Chest is clear on consultation. Abdomen is soft nontender. No organomegaly, bowel sounds present. Peripheral pulses are present. No peripheral edema. 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 Results - Laboratory Findings CBC and BMP: 10/03/23 07:53 10/03/23 07:47 Abnormal Lab Findings: Abnormal Labs 10/01/23 10/01/23 10/01/23 17:25 17:25 18:14 WBC 11.5 H RBC 5.93 H Hgb 18.2 H Hct 54.2 H Plt Count Neutrophils # 8.5 H Lymphocytes # INR Sodium Carbon Dioxide 21 L BUN 32 H Glucose 198 H POC Glucose (mg/dL) Total Bilirubin 2.1 H Troponin I Total Protein 8.4 H Cholesterol LDL Cholesterol, Calc HDL Cholesterol Urine Protein Trace H Urine Glucose (UA) 1+ H Urine Ketones 1+ H Urine Blood Small H Ur Leukocyte Esterase Moderate H Urine Bacteria Rare H Urine Mucus Occasional H 10/01/23 10/01/23 10/02/23 18:14 18:14 00:11 WBC RBC Hgb Hct Plt Count Neutrophils # Lymphocytes # INR 1.2 H Sodium Carbon Dioxide BUN Glucose POC Glucose (mg/dL) Total Bilirubin Troponin I 0.055 H* 0.057 H* Total Protein Cholesterol LDL Cholesterol, Calc HDL Cholesterol Urine Protein Urine Glucose (UA) Urine Ketones Urine Blood Ur Leukocyte Esterase Urine Bacteria Urine Mucus 10/02/23 10/02/23 10/02/23 03:45 03:45 11:56 WBC RBC Hgb Hct Plt Count Neutrophils # Lymphocytes # INR Sodium Carbon Dioxide BUN Glucose POC Glucose (mg/dL) 289 H Total Bilirubin Troponin I 0.056 H* Total Protein Cholesterol 225.00 H LDL Cholesterol, Calc 167.9 H HDL Cholesterol 37.90 L Urine Protein Urine Glucose (UA) Urine Ketones Urine Blood Ur Leukocyte Esterase Urine Bacteria Urine Mucus 10/02/23 10/03/23 10/03/23 14:59 07:47 07:53 WBC 17.9 H RBC Hgb Hct Plt Count 114 L Neutrophils # 16.2 H Lymphocytes # 0.9 L INR Sodium 133 L Carbon Dioxide BUN 38 H Glucose 338 H POC Glucose (mg/dL) 317 H Total Bilirubin Troponin I Total Protein Cholesterol LDL Cholesterol, Calc HDL Cholesterol Urine Protein Urine Glucose (UA) Urine Ketones Urine Blood Ur Leukocyte Esterase Urine Bacteria Urine Mucus Assessment and Plan Assessment: 82-year-old male, found down on the floor at the residence. Abnormal brain MRI, with evidence of possible slight hemorrhagic mass left basal ganglia. Differential includes hemorrhagic mass versus ischemic CVA with mild hemorrhagic conversion. Intermittent episodes of staring off since March 2023, rule out focal seizures. Acute DVT with PE. Atrial fibrillation with rapid ventricular rate. Patient was on Xarelto, currently on hold. 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 Cavernoma is felt to be less likely given no finding on 2012 study. No additional abnormal enhancement seen throughout the brain. I personally reviewed MRI, and appears ischemic stroke with slight hemorrhagic conversion. Patient is noncompliant with medication, probably not taking Xarelto regularly therefore may have resulted in a CVA. 2D echo revealed normal left ventricular size with EF 50 to 55%. Hypokinetic basal segment. Right ventricle not well-visualized. Severely increased left atrial volume. Moderately increased left atrial area. No valvular abnormalities. Check carotid Doppler Patient is having episodes of staring off spells. We will check EEG rule out any epileptiform activity. Cholesterol 225, LDL 167, HDL 37, triglycerides 95. Recommend starting statins with Lipitor 40 mg daily. Check hemoglobin A1c B12, folate, TSH Hold antiplatelets, anticoagulants for now because of possible hemorrhagic lesion. Patient has acute DVT, also has atrial fibrillation. Patient needs anticoagulation, but anticoagulation contraindicated because of hemorrhagic lesion in the brain. Patient and family aware of risk of recurrent DVT, PE. Vascular surgery on board for possible IVC filter placement. Repeat CT head in the morning. If no hemorrhage, then will be clear for low intensity anticoagulation. DVT prophylaxis: Will defer to IM. Patient has DVT. Neurology will follow. Discussed with family members in detail. Thank you for the consultation. Time with Patient: Greater than 30
--- NOTE | 2023-10-03 16:18 | P.PN ---
Subjective Progress Note Date: 10/03/23 82-year-old male with past medical history of atrial fibrillation, hypertension, dementia. We have been asked to evaluate the patient for A-fib with RVR. Patient apparently resides at [facility] and staff was not able to wake him up. He is normally alert and oriented x 1 only. Patient was brought in by EMS due to altered mental status. Patient is unable to provide any history and does not remember why he is in the hospital. Patient was found to be in A-fib with RVR and started on Cardizem bolus followed by drip. Patient was also found to have a mass on CT of the brain and oncology on consult. EKG: Atrial fibrillation at 119 bpm, atrial fibrillation and 125 bpm Chest x-ray: No acute process CAT scan of the brain: Masslike enlargement and edema involving the left basal ganglia, consider neoplasm. Laboratory studies: WBC 11.5, hemoglobin 18.2. Sodium 142, potassium 4.1, BUN 32 and creatinine 1.19. Troponin 0.055, 0.057 and 0.056. Triglycerides 95, cholesterol 225, LDL 167, HDL 37. Urinalysis moderate leukoesterase. Home cardiac medications: Xarelto 20 mg daily Objective - Vital Signs Vital signs: Vital Signs Temp 98.0 F 10/03/23 11:07 Pulse 71 10/03/23 11:07 Resp 16 10/03/23 11:07 BP 156/81 10/03/23 11:07 Pulse Ox 95 10/03/23 11:07 FiO2 Intake & Output 10/02/23 10/03/23 10/03/23 18:59 06:59 18:59 Intake Total 450 0 Balance 450 0 Weight 68.039 kg Intake: Intake, IV Titration 450 Amount Sodium Chloride 0.9% 1, 450 000 ml @ 75 mls/hr IV . [id number] [facility] Rx#:[id number] Oral 0 Other: Voiding Method Toilet Bedside Commode # Voids 1 4 # Bowel Movements 2 - Exam Gen: This is an 82-year-old male in no acute distress VS: reviewed, blood pressure 167/104, heart rate 111, pulse ox 95% on room air. HEENT: Head is atraumatic, normocephalic. Pupils equal, round. Sclerae is anicteric. NECK: Supple. No JVD. LUNGS: Clear to auscultation. No wheezes or rhonchi. No intercostal retractions. HEART: Irregular rate and rhythm. No murmur. ABDOMEN: Soft No tenderness. EXTREMITIES: No pedal edema. No calf tenderness. NEUROLOGICAL: Patient is awake, alert. - Labs CBC & Chem 7: 10/03/23 07:53 10/03/23 07:47 Labs: Abnormal Lab Results - Last 24 Hours (Table) 10/02/23 10/03/23 10/03/23 Range/Units 14:59 07:47 07:53 WBC 17.9 H (3.8-10.6) k/uL Plt Count 114 L (150-450) k/uL Neutrophils # 16.2 H (1.3-7.7) k/uL Lymphocytes # 0.9 L (1.0-4.8) k/uL Sodium 133 L (137-145) mmol/L BUN 38 H (9-20) mg/dL Glucose 338 H (74-99) mg/dL POC Glucose (mg/dL) 317 H (70-110) mg/dL Microbiology - Last 24 Hours (Table) 10/01/23 17:39 Blood Culture - Preliminary Blood 10/01/23 17:20 Blood Culture - Preliminary Blood Assessment and Plan Assessment: 1. Elevated troponin most likely secondary to A-fib with RVR. No complaints of chest pain. --Cardiology on board. No plans for aggressive cardiac workup for elevated troponin due to underlying dementia with new diagnosis of a brain mass 2. A-fib with RVR, currently rate moderately controlled; cardiology recommending to start patient on Lopressor 50 mg twice daily. Plan to wean off Cardizem drip. Xarelto was placed on hold given diagnosis of a brain mass; 2D echo is ordered and pending 3. Brain mass; CT of the brain reveals mass like enlargement in the left basal ganglia measuring approximately 2.4 x 1.9 cm with vasogenic edema causing partial compression of anterior horn of lateral ventricle on the left. --Patient received IV dexamethasone 10 mg x 1 and will be started on dexamethaso ne 6 mg twice daily by oncology service -- MRI of the brain is recommended with CT of the chest abdomen and pelvis for staging 4. Hypertension; Lopressor 50 mg twice daily 5. Hyperlipidemia; currently not on any statin therapy 6. Dementia with dysphagia; patient has been placed on chopped soft diet; speech evaluation ordered and pending DVT prophylaxis; SCDs only given new diagnosis of brain mass and need for further workup CODE STATUS; full code
[2023-10-03 16:54] LABS: Glucose,Whole Blood 320 mg/dL (70-110)
[2023-10-03] MEDS: INSULIN ASPART (NovoLOG) 100 UNIT/ML VIAL SQ SCH (17:20)
--- NOTE | 2023-10-03 18:45 | P.PN ---
Subjective Progress Note Date: 10/03/23 No acute events. At today's visit patient is resting comfortably in bedside chair. Patient is more awake and alert. Family states patient his mentation has improved. Continues on decadron Objective - Vital Signs Vital signs: Vital Signs Temp 98.3 F 10/03/23 16:00 Pulse 63 10/03/23 16:00 Resp 16 10/03/23 16:00 BP 175/83 10/03/23 16:00 Pulse Ox 96 10/03/23 16:00 FiO2 Intake & Output 10/02/23 10/03/23 10/03/23 18:59 06:59 18:59 Intake Total 450 118 Balance 450 118 Weight 68.039 kg Intake: Intake, IV Titration 450 Amount Sodium Chloride 0.9% 1, 450 000 ml @ 75 mls/hr IV . [id number] [facility] Rx#:[id number] Oral 118 Other: Voiding Method Toilet Toilet Bedside Commode Bedside Commode Incontinent External Catheter # Voids 1 4 1 # Bowel Movements 2 - Constitutional General appearance: Present: average body habitus, no acute distress - EENT Eyes: Present: anicteric sclerae, EOMI ENT: Present: hearing grossly normal - Respiratory Details: breathing is even and unlabored - Cardiovascular Details: skin warm and dry - Integumentary Integumentary: Absent: cyanotic, jaundiced - Musculoskeletal Musculoskeletal: Present: generalized weakness - Labs CBC & Chem 7: 10/03/23 07:53 10/03/23 07:47 Labs: Abnormal Lab Results - Last 24 Hours (Table) 10/03/23 10/03/23 10/03/23 Range/Units 07:47 07:53 16:53 WBC 17.9 H (3.8-10.6) k/uL Plt Count 114 L (150-450) k/uL Neutrophils # 16.2 H (1.3-7.7) k/uL Lymphocytes # 0.9 L (1.0-4.8) k/uL Sodium 133 L (137-145) mmol/L BUN 38 H (9-20) mg/dL Glucose 338 H (74-99) mg/dL POC Glucose (mg/dL) 320 H (70-110) mg/dL Microbiology - Last 24 Hours (Table) 10/01/23 17:39 Blood Culture - Preliminary Blood 10/01/23 17:20 Blood Culture - Preliminary Blood - Imaging and Cardiology CT scan - abdomen: report reviewed CT scan - pelvis: report reviewed MRI - abdomen: report reviewed Venous US: report reviewed Assessment and Plan (1) Brain mass Current Visit: Yes Status: Acute Priority: High Code(s): G93.89 - OTHER SPECIFIED DISORDERS OF BRAIN SNOMED Code(s): 218490895 (2) Altered mental status Current Visit: Yes Status: Acute Priority: High Code(s): R41.82 - ALTERED MENTAL STATUS, UNSPECIFIED SNOMED Code(s): 631384426 Plan: Basal ganglia mass: Presented to the emergency room for altered mental status after being found on the floor by staff at [facility] -Upon admission CT brain revealed masslike enlargement in the left basal ganglia region measuring approximately 2.4 x 1.9 cm with vasogenic edema causing partial compression of the anterior horn of the left lateral ventricle. Patient was given IV push dexamethasone 10 mg and was started on 6 mg dexamethasone twice daily -Will obtain brain MRI for further evaluation of mass, and CT CAP for staging -CT chest abdomen pelvis showed right pulmonary embolus with no evidence of right heart strain. Subcentimeter pulmonary nodules measuring 4 mm in the right upper lobe and 5 mm in the left upper lobe. Prostatomegly. Colonic diverticulosis and cholelithiasis. -PSA ordered. Family states pt has been told in the past he has had elevated PSA, but do not know if he was diagnosed with prostate cancer. He has never received treatment or further workup for elevated PSA -Brain MRI revealing left basal ganglia mass measuring 2.7 x 1.9 x 2.6 cm with hypoenhancement which could represent hemorrhagic primary glioma or secondary malignancy. No additional abnormal enhancement seen throughout the brain. -Bilateral lower extremity Dopplers revealed deep vein thrombosis of the right lower extremity from the popliteal vein into the calf. Left lower extremity negative for DVT -Xarelto for afib has been held due to concern for brain mass. Per family, patient has not allowed family to help him with his medications and to their understanding he has not been taking his medications as directed. 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 Consult placed to vascular surgery. Spoke with Dr. Flores today, plans to place filter later today or tomorrow morning -Continue on dexamethasone 6mg TID, today pt showing improvement in mentation -Family stated that patient has verbalized that he would not want to undergo any brain surgery or brain biopsy, but would be amendable to treatments. Discussed with pt and family that a biopsy would need to be obtained for a diagnosis prior to any systemic treatments. And CT scans obtained did not provide any other s ites for biopsy, as pulmonary nodules are indeterminate and subcentimer and would be difficult to biopsy, making a primary brain malignancy more likely. -Will place consult to radiation oncology for further evaluation for possible palliative RT -Family states patient would be amendable for follow up with neuro surgeon to discuss their recommendations. Will need referral to neurosurgery upon discharge Dysphagia: -Soft, chopped diet -Speech eval requested
[2023-10-03 20:26] LABS: Glucose,Whole Blood 339 mg/dL (70-110)
--- NOTE | 2023-10-04 00:37 | US ---
EXAMINATION TYPE: US carotid duplex BILAT DATE OF EXAM: 10/03/2023 COMPARISON: CLINICAL INDICATION: Male, 82 years old with history of CVA; HTN. Hx TIA/stroke. TECHNIQUE: Carotid duplex ultrasound examination. Indirect Doppler criteria was utilized. FINDINGS: EXAM MEASUREMENTS: RIGHT: Peak Systolic Velocity (PSV) cm/sec ----- Right CCA: 44.4 ----- Right ICA: 48.3 ----- Right ECA: 178.7 ICA/CCA ratio: 1.1 RIGHT: End Diastole cm/sec ----- Right CCA: 6.9 ----- Right ICA: 5.6 ----- Right ECA: 0.0 LEFT: Peak Systolic Velocity (PSV) cm/sec ----- Left CCA: 34.5 ----- Left ICA: 30.6 ----- Left ECA: 103.4 ICA/CCA ratio: 0.9 LEFT: End Diastole cm/sec ----- Left CCA: 0.0 ----- Left ICA: 6.5 ----- Left ECA: 0.0 VERTEBRALS (direction of flow): Right Vertebral: Antegrade Left Vertebral: Antegrade Rhythm: Arrhythmia [employer] [employer] NOTES: Bilateral plaque and wall thickening. Elevated right ECA velocity. Moderate to severe eccentric plaque bilateral carotid bulb level. Velocity measurements and ratios re main within normal limits within both internal carotid arteries. IMPRESSION: No hemodynamically significant stenosis in either internal carotid artery. Criteria for Assigning % of Stenosis / Diameter reduction (Estimation based on the indirect measurements of the internal carotid artery velocities (ICA PSV). 1. Normal (no stenosis)=ICA PSV < 125 cm/s: ratio < 2.0: ICA EDV<40 cm/s. 2. Less than 50% stenosis=ICA PSV < 125 cm/s: ratio < 2.0: ICA EDV<40 cm/s. 3. 50 to 69% stenosis=ICA PSV of 125 to 230 cm/s: ration 2.0 ? 4.0: ICA EDV 40-100 cm/s. 4. Greater than 70% stenosis to near occlusion= ICA PSV > 230 cm/s: ratio > 4.0: ICA EDV > 100 cm/s. 5. Near occlusion= ICA PSV velocities may be low or undetectable: variable ratio and ICA EDV. 6. Total occlusion=unable to detect flow.
[2023-10-04 05:57] LABS: Glucose,Whole Blood 275 mg/dL (70-110)
--- NOTE | 2023-10-04 07:30 | CT ---
EXAMINATION TYPE: CT brain wo con CT DLP: 1184.4 mGycm, Automated exposure control for dose reduction was used. DATE OF EXAM: 10/04/2023 6:54 AM COMPARISON: 10/01/2023 10/03/2023. CLINICAL INDICATION:Male, 82 years old with history of Follow-up lesion, rule out hemorrhage, Follow up lesion, possible hemorrhage TECHNIQUE: Brain: Axial CT images of the brain were obtained with coronal and sagittal reformats created and rev iewed. Contrast used: None. Oral contrast used: None. FINDINGS: Brain: Extra-axial spaces: No abnormal extra-axial fluid collections. Ventricular system: Within normal limits Cerebral parenchyma: Redemonstration of left basal ganglia mass which is not significantly changed fr om prior, measuring 26 x 25 mm No acute intraparenchymal hemorrhage or mass effect. The silva-white j unction is well differentiated. Cerebellum: Unremarkable. Mass effect: No evidence of midline shift. Intracranial vasculature: unremarkable Soft tissues: Normal. Calvarium/osseous structures: No depressed skull fracture. Paranasal sinuses and mastoid air cells: Mild scattered paranasal sinus disease. Visualized orbits: Orbital contents are intact. 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
[2023-10-04] MEDS: IV FLUID CONTINUATION 950 ML IV ONE (07:45)
[2023-10-04] MEDS ORDERED: fentaNYL (PF) 50 MCG/ML 2 ML AMP ONE (07:57)
[2023-10-04] MEDS ORDERED: LIDOCAINE 1% INJ 10MG/ML (20 ML MDV) ONE (07:58)
[2023-10-04] MEDS: fentaNYL (PF) 50 MCG/1 ML VIAL IVP ONE (08:00)
[2023-10-04] MEDS: IOPAMIDOL-370 100ML BTL INJ ONE (08:07)
--- NOTE | 2023-10-04 08:28 | P.OP ---
Date of Procedure: 10/04/23 Description of Procedure: Preoperative diagnosis: DVT, PE on blood thinner, new brain mass Postoperative diagnosis: Same Procedure: Ultrasound-guided right common femoral vein access Right iliofemoral venogram Venacavogram IVC filter placement with fluoroscopic interpretation Moderate conscious sedation x 14 minutes with personal monitoring certified RN administration with hemodynamic monitoring Surgeon: Puja Flores D.O. EBL: Less than 5 cc IV fluids: See records Urine output: Not measured Drains: None Complications: None immediately apparent Condition: Stable to recovery Operative indication and findings: Patient is an 82-year-old male with altered mental status was brought into the hospital and found to have a new diagnosis of a brain mass. Upon further workup and evaluation he was also noted to have a pulmonary embolism while being on Xarelto for his A-fib along with a DVT in his right lower extremity at the popliteal vein. Due to all of this it was recommended he have a filter placed. Risks and benefits were discussed. They seemingly understood and was willing to proceed. Procedure in detail: Patient was brought to the special suite placed in supine position. The bilateral groins were prepped and draped in usual sterile fashion. A preprocedural timeout was performed, all parties were in agreement. Using ultrasound, the right common femoral vein was identified. It was patent and compressible without any evidence of visualized thrombus. Permanent image was stored. The ultrasound was utilized, the skin overlying was anesthetized and using a micro access needle, the vein was accessed. Hellinger technique was used to place the 8 British dilator. An iliofemoral venogram was performed through this showing no evidence of iliofemoral thrombus. Wire was placed into the vena cava followed by the introducer sheath of the filter. An image was performed to identify the renal vein. The filter was then deployed in standard fashion and the infrarenal vena cava. A post image was performed showing adequate placement. Catheters and wires removed. Manual pressure was held for hemostasis. Patient tolerated the procedure well.
[2023-10-04 08:40] LABS: African American GFR (CKD) >90 (>60 ml/min/1.73 sqM); Anion Gap 2 mmol/L; Blood Urea Nitrogen 33 mg/dL (9-20); Carbon Dioxide 25 mmol/L (22-30); Chloride 107 mmol/L (98-107); Glucose 236 mg/dL (74-99); Non-African American GFR(CKD) 80 (>60 ml/min/1.73 sqM); Potassium 3.2 mmol/L (3.5-5.1); Sodium 134 mmol/L (137-145)
--- NOTE | 2023-10-04 08:42 | IR ---
EXAMINATION TYPE: IR IVC filter placement Intraoperative/procedural fluoroscopic services were provid ed. CLINICAL INDICATION:Male, 82 years old with history of DVT, 0.8m/16.0DAP, rt gr manua pressure; , [facility] Total fluoroscopy time is 0.8 min. DAP: 16.0 uGym2 Please see the operative/procedural note for further details.
[2023-10-04 09:01] LABS: Basophils % (A) 0 %; Eosinophils % (A) 0 %; HCT 43.6 % (39.0-53.0); HGB 15.4 gm/dL (13.0-17.5); Lymphocytes # (A) 0.5 k/uL (1.0-4.8); Lymphocytes % (A) 3 %; MCH 31.7 pg (25.0-35.0); MCHC 35.2 g/dL (31.0-37.0); MCV 90.1 fL (80.0-100.0); Mean Platelet Volume 10.6; Monocytes # (A) 0.5 k/uL (0-1.0); Monocytes % (A) 4 %; Neutrophils # (A) 13.3 k/uL (1.3-7.7); Neutrophils % (A) 93 %; RBC 4.85 m/uL (4.30-5.90); RDW 13.5 % (11.5-15.5); WBC 14.3 k/uL (3.8-10.6)
--- NOTE | 2023-10-04 10:21 | P.PN ---
Subjective Progress Note Date: 10/04/23 Principal diagnosis: Atrial fibrillation The patient is a pleasant 82-year-old gentleman who was admitted to the hospital with a change in mental status and was found to have abnormal troponin as well as atrial fibrillation. He was on oral anticoagulation. He was diagnosed with a brain mass. We stop anticoagulation at this point because of the recent diagnosis of brain mass October 03, 2023 The patient was seen and evaluated this morning. He is feeling slightly better but he is in process of having an MRI of the brain for further risk stratification. Anticoagulation continues to be on hold. The examination is remarkable for irregular rhythm with controlled heart rate and remains in atrial fibrillation with controlled heart rate. October 04, 2023 The patient was seen this morning. He is stable hemodynamically. He underwent an IVC filter placement earlier today. No pain in the chest and no shortness of breath. He continues to be in atrial fibrillation with controlled heart rates. Anticoagulation are on hold at this point. The examination is remarkable for elevated blood pressure with irregular rhythm and clear breathing sounds bilaterally and no edema was noted in the lower extremities Assessment Change in mental status Recent diagnosis of a brain mass Atrial fibrillation with controlled heart rate Recent diagnosis of pulmonary embolism Plan Continue the current medical regimen Continue holding oral anticoagulation for now Status post a IVC filter placement Please start the patient back on lisinopril Follow-up with the pt Objective - Vital Signs Vital signs: Vital Signs Temp 97.9 F 10/04/23 04:00 Pulse 74 10/04/23 07:43 Resp 16 10/04/23 07:43 BP 199/72 10/04/23 07:43 Pulse Ox 96 10/04/23 07:43 FiO2 Intake & Output 10/03/23 10/04/23 10/04/23 18:59 06:59 18:59 Intake Total 236 0 100 Output Total 0 Balance 236 0 100 Weight 68.039 kg Intake: IV 100 Oral 236 0 Output: Gastric Drainage 0 Urine 0 Stool 0 Urine/Stool Mix 0 Emesis 0 Oral Regurgitation 0 Other 0 Other: Voiding Method Toilet Toilet Bedside Commode Bedside Commode Incontinent Incontinent External Catheter External Catheter # Voids 1 1 0 # Bowel Movements 0 0 - Labs CBC & Chem 7: 10/04/23 08:24 10/04/23 08:24 Labs: Abnormal Lab Results - Last 24 Hours (Table) 10/03/23 10/03/23 10/04/23 Range/Units 16:53 20:25 05:55 WBC (3.8-10.6) k/uL Sodium (137-145) mmol/L Potassium (3.5-5.1) mmol/L BUN (9-20) mg/dL Glucose (74-99) mg/dL POC Glucose (mg/dL) 320 H 339 H 275 H (70-110) mg/dL Calcium (8.4-10.2) mg/dL 10/04/23 10/04/23 Range/Units 08:24 08:24 WBC 14.3 H (3.8-10.6) k/uL Sodium 134 L (137-145) mmol/L Potassium 3.2 L (3.5-5.1) mmol/L BUN 33 H (9-20) mg/dL Glucose 236 H (74-99) mg/dL POC Glucose (mg/dL) (70-110) mg/dL Calcium 8.0 L (8.4-10.2) mg/dL Microbiology - Last 24 Hours (Table) 10/01/23 17:39 Blood Culture - Preliminary Blood 10/01/23 17:20 Blood Culture - Preliminary Blood
[2023-10-04 11:29] LABS: Platelet Count 98 k/uL (150-450); RBC Morphology Normal
[2023-10-04 11:33] LABS: Glucose,Whole Blood 289 mg/dL (70-110)
[2023-10-04] MEDS ORDERED: Potassium Replacement Protocol 1 EACH MISC MISCELLANE PRN (11:34)
[2023-10-04] MEDS: lisinopriL 20 MG TAB PO SCH (11:47)
[2023-10-04] MEDS: POTASSIUM CHLORIDE ER 20 MEQ TAB.ER PO SCH (11:47)
--- NOTE | 2023-10-04 12:24 | P.CNPUL ---
History of Present Illness Consult date: 10/04/23 Requesting physician: Julita Diaz Reason for consult: pulmonary embolism Chief complaint: Altered mental status History of present illness: This is an 82-year-old gentleman with a known history of CVA/TIA, diabetes mellitus, dementia, atrial fibrillation anticoagulated with Xarelto who resides at [facility]. He was found on the floor in his room on October 01, 2023 and was brought here for altered mental status by EMS. The patient does not recall how he ended up on the floor. CT scan of the brain revealed a masslike enlargement and edema involving the left basal ganglia most likely an underlying neoplasm. CT scan of the chest abdomen and pelvis revealed right pulmonary embolus with no evidence of right heart strain. Subcentimeter pulmonary nodules which are indeterminant. Prostatomegaly. Colonic diverticulosis, cholelithiasis. Dopplers of the lower extremity revealed a DVT on the right. MRI of the brain revealed a left basal ganglia mass with hy poenhancement which could represent hemorrhagic primary glioma or secondary malignancy. He is currently on Decadron. Normal saline at 75 MLS per hour. He did undergo a IVC filter placement this morning. He is currently resting in bed. Awake and alert. He is somewhat slow to respond. He denies any shortness of breath, cough or congestion. No hemoptysis. He is maintaining good O2 saturations in the mid 90s on room air. He is afebrile. White count 14.3. Hemoglobin 15.4. Platelets 98,000. Sodium 134. Potassium 3.2. Bicarb 25. BUN 33. Creatinine 0.86. Glucose 236. Review of Systems REVIEW OF SYSTEMS: CONSTITUTIONAL: Denies any recent significant weight loss or weight gain. EYES: Denies change in vision. EARS, NOSE, MOUTH, THROAT: Denies headaches, denies sore throat. CARDIOVASCULAR: Denies chest pain, palpitations or syncopal episodes. RESPIRATORY: Denies shortness of breath, cough, congestion or hemoptysis. GASTROINTESTINAL: Denies change in appetite, denies abdominal pain GENITOURINARY: Denies hematuria, denies infections. MUSKULOSKELETAL: Denies pain, denies swelling. INTEGUMENTARY: Denies rash, denies eczema. NEUROLOGICAL: Positive for altered mental status. Denies recent memory loss, no recent seizure activity. PSYCHIATRIC: Denies anxiety, denies depression. HEMATOLOGIC/LYMPHATIC: Denies anemia, denies enlarged lymph nodes. Past Medical History Past Medical History: COPD, CVA/TIA, Diabetes Mellitus Additional Past Medical History / Comment(s): dementia- hallucinations (hearing and seeing things)- symptoms for months. AFIB History of Any Multi-Drug Resistant Organisms: None Reported Additional Past Surgical History / Comment(s): hand surgery Past Anesthesia/Blood Transfusion Reactions: No Reported Reaction Past Psychological History: No Psychological Hx Reported Additional Psychological History / Comment(s): Alzheimers dementia Smoking Status: Never smoker Past Alcohol Use History: Rare Past Drug Use History: Marijuana Medications and Allergies Home Medications Medication Instructions Recorded Confirmed Type Rivaroxaban [Xarelto] 20 mg PO DAILY 01/16/22 10/01/23 History lisinopriL [Zestril] 20 mg PO DIRECTED 01/16/22 10/02/23 History Potassium Chloride ER [K-Dur 20] 10 meq PO DIRECTED 10/02/23 10/02/23 History Potassium Chloride ER [K-Dur 20] 20 meq PO DIRECTED 10/02/23 10/02/23 History Allergies Allergy/AdvReac Type Severity Reaction Status Date / Time No Known Allergies Allergy Verified 10/02/23 13:28 Physical Exam Vitals: Vital Signs Temp Pulse Pulse Resp BP Pulse Ox 10/04/23 09:55 74 16 10/04/23 07:43 74 16 199/72 96 10/04/23 04:00 97.9 F 64 18 160/81 96 10/04/23 02:00 16 10/04/23 00:00 98.2 F 78 16 148/92 95 10/03/23 20:00 98 F 70 16 162/70 96 10/03/23 16:00 98.3 F 63 16 175/83 96 10/03/23 14:00 71 16 Intake and Output 10/03/23 10/04/23 10/04/23 22:59 06:59 14:59 Intake Total 118 100 Output Total 0 Balance 118 100 Intake: IV 100 Oral 118 Output: Gastric Drainage 0 Urine 0 Stool 0 Urine/Stool Mix 0 Emesis 0 Oral Regurgitation 0 Other 0 Other: Voiding Method Toilet Toilet Toilet Bedside Commode Bedside Commode Bedside Commode Incontinent Incontinent Incontinent External Catheter External Catheter External Catheter # Voids 0 1 0 # Bowel Movements 0 0 GENERAL EXAM: Alert, oriented x 1, 82-year-old male patient, on room air, comfortable in no apparent distress. HEAD: Normocephalic. EYES: Normal reaction of pupils, equal size. NOSE: Clear with pink turbinates. THROAT: No erythema or exudates. NECK: No masses, no JVD. CHEST: No chest wall deformity. LUNGS: Equal air entry with no crackles, wheeze, rhonchi or dullness. CVS: S1 and S2 normal with no audible murmur, regular rhythm. ABDOMEN: No hepatosplenomegaly, normal bowel sounds, no guarding or rigidity. SPINE: No scoliosis or deformity SKIN: No rashes CENTRAL NERVOUS SYSTEM: No focal deficits, tone is normal in all 4 extremities. EXTREMITIES: There is no peripheral edema. No clubbing, no cyanosis. Perip heral pulses are intact. Results - Laboratory Findings CBC and BMP: 10/04/23 08:24 10/04/23 08:24 PT/INR, D-dimer PT 12.5 sec (10.0-12.5) 10/01/23 18:14 INR 1.2 (<1.2) H 10/01/23 18:14 Abnormal lab findings: Abnormal Labs 10/01/23 10/01/23 10/01/23 17:25 17:25 18:14 WBC 11.5 H RBC 5.93 H Hgb 18.2 H Hct 54.2 H Plt Count Neutrophils # 8.5 H Lymphocytes # INR Sodium Potassium Carbon Dioxide 21 L BUN 32 H Glucose 198 H POC Glucose (mg/dL) Calcium Total Bilirubin 2.1 H Troponin I Total Protein 8.4 H Cholesterol LDL Cholesterol, Calc HDL Cholesterol Urine Protein Trace H Urine Glucose (UA) 1+ H Urine Ketones 1+ H Urine Blood Small H Ur Leukocyte Esterase Moderate H Urine Bacteria Rare H Urine Mucus Occasional H 10/01/23 10/01/23 10/02/23 18:14 18:14 00:11 WBC RBC Hgb Hct Plt Count Neutrophils # Lymphocytes # INR 1.2 H Sodium Potassium Carbon Dioxide BUN Glucose POC Glucose (mg/dL) Calcium Total Bilirubin Troponin I 0.055 H* 0.057 H* Total Protein Cholesterol LDL Cholesterol, Calc HDL Cholesterol Urine Protein Urine Glucose (UA) Urine Ketones Urine Blood Ur Leukocyte Esterase Urine Bacteria Urine Mucus 10/02/23 10/02/23 10/02/23 03:45 03:45 11:56 WBC RBC Hgb Hct Plt Count Neutrophils # Lymphocytes # INR Sodium Potassium Carbon Dioxide BUN Glucose POC Glucose (mg/dL) 289 H Calcium Total Bilirubin Troponin I 0.056 H* Total Protein Cholesterol 225.00 H LDL Cholesterol, Calc 167.9 H HDL Cholesterol 37.90 L Urine Protein Urine Glucose (UA) Urine Ketones Urine Blood Ur Leukocyte Esterase Urine Bacteria Urine Mucus 10/02/23 10/03/23 10/03/23 14:59 07:47 07:53 WBC 17.9 H RBC Hgb Hct Plt Count 114 L Neutrophils # 16.2 H Lymphocytes # 0.9 L INR Sodium 133 L Potassium Carbon Dioxide BUN 38 H Glucose 338 H POC Glucose (mg/dL) 317 H Calcium Total Bilirubin Troponin I Total Protein Cholesterol LDL Cholesterol, Calc HDL Cholesterol Urine Protein Urine Glucose (UA) Urine Ketones Urine Blood Ur Leukocyte Esterase Urine Bacteria Urine Mucus 10/03/23 10/03/23 10/04/23 16:53 20:25 05:55 WBC RBC Hgb Hct Plt Count Neutrophils # Lymphocytes # INR Sodium Potassium Carbon Dioxide BUN Glucose POC Glucose (mg/dL) 320 H 339 H 275 H Calcium Total Bilirubin Troponin I Total Protein Cholesterol LDL Cholesterol, Calc HDL Cholesterol Urine Protein Urine Glucose (UA) Urine Ketones Urine Blood Ur Leukocyte Esterase Urine Bacteria Urine Mucus 10/04/23 10/04/23 10/04/23 08:24 08:24 11:31 WBC 14.3 H RBC Hgb Hct Plt Count 98 L Neutrophils # 13.3 H Lymphocytes # 0.5 L INR Sodium 134 L Potassium 3.2 L Carbon Dioxide BUN 33 H Glucose 236 H POC Glucose (mg/dL) 289 H Calcium 8.0 L Total Bilirubin Troponin I Total Protein Cholesterol LDL Cholesterol, Calc HDL Cholesterol Urine Protein Urine Glucose (UA) Urine Ketones Urine Blood Ur Leukocyte Esterase Urine Bacteria Urine Mucus - Diagnostic Findings Chest x-ray: image reviewed CT scan - chest: image reviewed Assessment and Plan Assessment: Altered mental status, found on the floor. Patient unclear how he got there. MRI of the brain revealed a left basal ganglia mass with hypoenhancement which could represent hemorrhagic primary glioma or secondary malignancy. Pulmonary embolism, unable to anticoagulate, IVC filter placed today October 04, 2023 Deep vein thrombosis of the right lower extremity Diabetes mellitus History of CVA/TIA Dementia History of atrial fibrillation anticoagulated with Xarelto in the outpatient setting Lifelong non-smoker Plan: Imaging, labs and medications reviewed IVC filter placed today Remains stable and on room air Continued on Decadron May consider palliative radiation therapy Family may consider neurosurgery consult in the outpatient setting We will continue to follow and make further recommendations based on his clinical status I have personally seen and examined the patient, performed the documentation and the assessment and plan as written. Number of minutes spent on the visit: 20.
--- NOTE | 2023-10-04 13:37 | P.PN ---
Progress Note - Text Progress Note Date: 10/04/23 CT head was performed. It revealed left basal ganglia mass without evidence of hemorrhage. I p ersonally reviewed CT head, agree with the findings. Patient had undergone IVC filter placement today. Per nursing report, patient is slightly slurring, but has received fentanyl for IVC filter. Otherwise examination is unchanged. Carotid Doppler revealed no hemodynamically significant stenosis in either ICA. Antegrade flow in both vertebral arteries. Hemoglobin A1c 7.9. Recommend optimize control of diabetes to target A1c < 7.0. Patient not on anticoagulation because of brain mass. Patient had undergone IVC filter placement for DVT. Patient has atrial fibrillation, therefore we will start aspirin 81 mg daily for stroke prevention. Await EEG. Start Keppra 500 mg bid empirically. Recommend transfer to higher level of care for neurosurgical evaluation.
[2023-10-04] MEDS: ASPIRIN 81 MG PO SCH (15:58)
[2023-10-04] MEDS: levETIRAcetam 500 MG TAB PO SCH (15:58)
[2023-10-04 16:49] LABS: Glucose,Whole Blood 323 mg/dL (70-110)
--- NOTE | 2023-10-04 16:56 | P.PN ---
Subjective Progress Note Date: 09/27/23 82-year-old male with past medical history of atrial fibrillation, hypertension, dementia. We have been asked to evaluate the patient for A-fib with RVR. Patient apparently resides at [facility] and staff was not able to wake him up. He is normally alert and oriented x 1 only. Patient was brought in by EMS due to altered mental status. Patient is unable to provide any history and does not remember why he is in the hospital. Patient was found to be in A-fib with RVR and started on Cardizem bolus followed by drip. Patient was also found to have a mass on CT of the brain and oncology on consult. EKG: Atrial fibrillation at 119 bpm, atrial fibrillation and 125 bpm Chest x-ray: No acute process CAT scan of the brain: Masslike enlargement and edema involving the left basal ganglia, consider neoplasm. Laboratory studies: WBC 11.5, hemoglobin 18.2. Sodium 142, potassium 4.1, BUN 32 and creatinine 1.19. Troponin 0.055, 0.057 and 0.056. Triglycerides 95, cholesterol 225, LDL 167, HDL 37. Urinalysis moderate leukoesterase. Home cardiac medications: Xarelto 20 mg daily 10/04/2023 Patient is seen and evaluated with multiple family members at bedside; patient's workup so far has been reviewed; according to discussion with oncology, family has indicated that patient does not very willing to undergo biopsy of the brain mass but would consider treatment --CT scan of the brain revealed a masslike enlargement and edema involving the left basal ganglia most likely an underlying neoplasm. CT scan of the chest abdomen and pelvis ordered after oncology evaluation revealed right pulmonary embolus with no evidence of right heart strain. Subcentimeter pulmonary nodules which are indeterminant. Prostatomegaly. Colonic diverticulosis, cholelithiasis. --Dopplers of the lower extremity revealed a DVT on the right. --MRI of the brain revealed a left basal ganglia mass with hypoenhancement which could represent hemorrhagic primary glioma or secondary malignancy. He is currently on Decadron. -- Patient underwent IVC filter placement this morning, given acute DVT and PE requiring anticoagulation which is contraindicated with hemorrhagic brain mass. White count 14.3. Hemoglobin 15.4. Platelets 98,000. Sodium 134. Potassium 3.2. Bicarb 25. BUN 33. Creatinine 0.86. Glucose 236. Objective - Vital Signs Vital signs: Vital Signs Temp 97.9 F 10/04/23 04:00 Pulse 74 10/04/23 07:43 Resp 16 10/04/23 07:43 BP 199/72 10/04/23 07:43 Pulse Ox 96 10/04/23 07:43 FiO2 Intake & Output 10/03/23 10/04/23 10/04/23 18:59 06:59 18:59 Intake Total 236 0 100 Output Total 0 Balance 236 0 100 Weight 68.039 kg Intake: IV 100 Oral 236 0 Output: Gastric Drainage 0 Urine 0 Stool 0 Urine/Stool Mix 0 Emesis 0 Oral Regurgitation 0 Other 0 Other: Voiding Method Toilet Toilet Bedside Commode Bedside Commode Incontinent Incontinent External Catheter External Catheter # Voids 1 1 0 # Bowel Movements 0 0 - Exam Gen: This is an 82-year-old male in no acute distress VS: reviewed, blood pressure 167/104, heart rate 111, pulse ox 95% on room air. HEENT: Head is atraumatic, normocephalic. Pupils equal, round. Sclerae is anicteric. NECK: Supple. No JVD. LUNGS: Clear to auscultation. No wheezes or rhonchi. No intercostal retractions. HEART: Irregular rate and rhythm. No murmur. ABDOMEN: Soft No tenderness. EXTREMITIES: No pedal edema. No calf tenderness. NEUROLOGICAL: Patient is awake, alert. - Labs CBC & Chem 7: 10/04/23 08:24 10/04/23 08:24 Labs: Abnormal Lab Results - Last 24 Hours (Table) 10/03/23 10/03/23 10/04/23 Range/Units 16:53 20:25 05:55 WBC (3.8-10.6) k/uL Sodium (137-145) mmol/L Potassium (3.5-5.1) mmol/L BUN (9-20) mg/dL Glucose (74-99) mg/dL POC Glucose (mg/dL) 320 H 339 H 275 H (70-110) mg/dL Calcium (8.4-10.2) mg/dL 10/04/23 10/04/23 Range/Units 08:24 08:24 WBC 14.3 H (3.8-10.6) k/uL Sodium 134 L (137-145) mmol/L Potassium 3.2 L (3.5-5.1) mmol/L BUN 33 H (9-20) mg/dL Glucose 236 H (74-99) mg/dL POC Glucose (mg/dL) (70-110) mg/dL Calcium 8.0 L (8.4-10.2) mg/dL Microbiology - Last 24 Hours (Table) 10/01/23 17:39 Blood Culture - Preliminary Blood 10/01/23 17:20 Blood Culture - Preliminary Blood Assessment and Plan Assessment: 1. Elevated troponin most likely secondary to A-fib with RVR. No complaints of chest pain. --Cardiology on board. No plans for aggressive cardiac workup for elevated troponin due to underlying dementia with new diagnosis of a brain mass 2. A-fib with RVR, currently rate moderately controlled; cardiology recommending to start patient on Lopressor 50 mg twice daily. Plan to wean off Cardizem drip. Xarelto was placed on hold given diagnosis of a brain mass; 2D echo is ordered and pending 3. Brain mass; CT of the brain reveals mass like enlargement in the left basal ganglia measuring approximately 2.4 x 1.9 cm with vasogenic edema causing partial compression of anterior horn of lateral ventricle on the left. --Patient received IV dexamethasone 10 mg x 1 and will be started on dexamethasone 6 mg twice daily by oncology service -- MRI of the brain is recommended with CT of the chest abdomen and pelvis for staging 4. Hypertension; Lopressor 50 mg twice daily 5. Hyperlipidemia; currently not on any statin therapy 6. Dementia with dysphagia; patient has been placed on chopped soft diet; speech evaluation ordered and pending DVT prophylaxis; SCDs only given new diagnosis of brain mass and need for further workup CODE STATUS; full code
[2023-10-04 20:06] LABS: Glucose,Whole Blood 379 mg/dL (70-110)
[2023-10-05 06:03] LABS: Glucose,Whole Blood 287 mg/dL (70-110)
[2023-10-05 09:20] VITALS: RESP 16
[2023-10-05] MEDS: POTASSIUM CHLORIDE ER 20 MEQ TAB.ER PO SCH ×2 (09:21→16:59)
--- NOTE | 2023-10-05 11:20 | P.PN ---
Subjective Progress Note Date: 10/05/23 Principal diagnosis: PE, DVT with contraindication for anticoagulation Patient underwent EEG this morning. Yesterday underwent IVC filter placement via right femoral common vein. Objective - Vital Signs Vital signs: Vital Signs Temp 98 F 10/05/23 04:00 Pulse 90 10/05/23 04:00 Resp 18 10/05/23 04:00 BP 142/82 10/05/23 04:00 Pulse Ox 98 10/05/23 04:00 FiO2 Intake & Output 10/04/23 10/05/23 10/05/23 18:59 06:59 18:59 Intake Total 1180 Output Total 0 1000 Balance 1180 -1000 Intake: IV 100 Oral 1080 Output: Gastric Drainage 0 Urine 0 1000 Stool 0 Urine/Stool Mix 0 Emesis 0 Oral Regurgitation 0 Other 0 Other: Voiding Method Toilet Bedside Commode Incontinent External Catheter # Voids 0 # Bowel Movements 0 - Exam General appearance: The patient is alert, oriented, appears in no acute distress. HET: Head is normocephalic and atraumatic. Neck: Supple. Heart: Regular. Lungs: Equal expansion, normal respiratory effort. Abdomen: Soft, nontender, nondistended. Extremities: Normal skin color and turgor. Right groin without any active bleeding or hematoma. Neurological: Awake and alert. - Labs CBC & Chem 7: 10/04/23 08:24 10/04/23 08:24 Labs: Abnormal Lab Results - Last 24 Hours (Table) 10/04/23 10/04/23 10/04/23 Range/Units 08:24 08:24 11:31 Plt Count 98 L (150-450) k/uL Neutrophils # 13.3 H (1.3-7.7) k/uL Lymphocytes # 0.5 L (1.0-4.8) k/uL POC Glucose (mg/dL) 289 H (70-110) mg/dL Hemoglobin A1c 7.9 H (<=6.0) % 10/04/23 10/04/23 10/05/23 Range/Units 16:47 20:05 06:02 Plt Count (150-450) k/uL Neutrophils # (1.3-7.7) k/uL Lymphocytes # (1.0-4.8) k/uL POC Glucose (mg/dL) 323 H 379 H 287 H (70-110) mg/dL Hemoglobin A1c (<=6.0) % Microbiology - Last 24 Hours (Table) 10/01/23 17:39 Blood Culture - Preliminary Blood 10/01/23 17:20 Blood Culture - Preliminary Blood Assessment and Plan Assessment: 1. DVT and pulmonary embolism with contraindication for anticoagulation 2. New brain mass Plan: Continue with medical management, recommendations from neurology and oncology. There is no further indication for any vascular surgical intervention at this time. Patient can follow-up with vascular surgery per recommendations from oncology for IVC filter retrieval when appropriate. Thank you for this consultation, we will sign off at this time. The impression and plan of care has been dictated as directed. Dr. Flores I performed a history and examination of this patient, discussed the same with the dictator. I agree with the dictator's note ,documented as a scribe. Any additional findings or plans will be noted.
[2023-10-05 11:32] LABS: Glucose,Whole Blood 276 mg/dL (70-110)
--- NOTE | 2023-10-05 12:13 | EEG ---
DATE OF SERVICE: 10/05/2023 ELECTROENCEPHALOGRAM REPORT PREAMBLE: This 82-year-old male with episodes of unresponsiveness. This study is performed to evaluate for any epileptiform activity. EEG FINDINGS: This is a 21-channel digital EEG recorded with video component, utilizing 10/20 international system with referential and bipolar montages. Background consists of poorly developed and regulated, predominantly low amplitude 2 to 3 hertz delta slowing, intermixed with some 4 hertz theta activity seen in bihemispheric region. Background does not seem to be reactive to eye opening and closing. Photic driving response was not seen. Different stages of sleep were not seen. No focal or generalized epileptiform activity was seen. IMPRESSION: This is an abnormal EEG due to background slowing of moderate to severe degree. This is suggestive of generalized cerebral dysfunction as can be seen with toxic metabolic encephalopathy or related to diffuse structural brain abnormality. No epileptiform activity was seen. MMODL / IJN: [id number] / MTDD
[2023-10-05] MEDS: FAMOTIDINE 20 MG TAB PO SCH (12:21)
--- NOTE | 2023-10-05 12:53 | P.PN ---
Subjective HISTORY OF PRESENT ILLNESS: The patient is a pleasant 82-year-old gentleman who was admitted to the hospital with a change in mental status and was found to have abnormal troponin as well as atrial fibrillation. He was on oral anticoagulation. He was diagnosed with a brain mass. We stop anticoagulation at this point because of the recent nany gnosis of brain mass October 03, 2023 The patient was seen and evaluated this morning. He is feeling slightly better but he is in process of having an MRI of the brain for further risk stratification. Anticoagulation continues to be on hold. The examination is remarkable for irregular rhythm with controlled heart rate and remains in atrial fibrillation with controlled heart rate. October 04, 2023 The patient was seen this morning. He is stable hemodynamically. He underwent an IVC filter placement earlier today. No pain in the chest and no shortness of breath. He continues to be in atrial fibrillation with controlled heart rates. Anticoagulation are on hold at this point. The examination is remarkable for elevated blood pressure with irregular rhythm and clear breathing sounds bilaterally and no edema was noted in the lower extremities October 05, 2023 Patient examined this morning at the bedside. Patient's family is present. Patient currently denies chest pain or pressure. He denies shortness of breath. Patient did have an elevated blood pressure this morning of 202/102. However his blood pressures overnight were in the [id number]. Patient was resumed on his lisinopril yesterday. Telemetry reveals atrial fibrillation with a heart rate in the 70s. PHYSICAL EXAM: VITAL SIGNS: Reviewed. GENERAL: Well-developed in no acute distress. NECK: Supple. No JVD or thyromegaly LUNGS: Respirations even and unlabored. Lungs essentially clear to auscultation bilaterally. HEART: Irregular rate and rhythm. S1 and S2 heard. EXTREMITIES: Normal range of motion. No clubbing or cyanosis. Peripheral pulses intact. No lower extremity edema ASSESSMENT: Persistent atrial fibrillation with RVR, currently rate controlled Altered mental status Left basal ganglia mass Recent diagnosis of pulmonary embolism Status post IVC filter placement, 10/04/2023 Diabetes PLAN: Continue to hold anticoagulation at this time secondary to brain mass Further workup of mass per neurology/primary medicine Patient with isolated elevated BP readings this morning. Overnight, SBP 130- 140s. Continue to monitor BP. If consistently elevated, may increase lisinopril. Further BP management per primary medicine No further inpatient recommendations from a cardiac standpoint We will sign off. Please reconsult if needed Nurse practitioner note has been reviewed by physician. Signing provider agrees with the documented findings, assessment, and plan of care documented by METAL PUNCH PRESS OPERATOR as a scribe. Objective - Vital Signs Vital signs: Vital Signs Temp 97.6 F 10/05/23 12:00 Pulse 84 10/05/23 12:00 Resp 16 10/05/23 12:00 BP 171/118 10/05/23 12:00 Pulse Ox 95 10/05/23 12:00 FiO2 Intake & Output 10/04/23 10/05/23 10/05/23 18:59 06:59 18:59 Intake Total 1180 Output Total 0 1000 Balance 1180 -1000 Intake: IV 100 Oral 1080 Output: Gastric Drainage 0 Urine 0 1000 Stool 0 Urine/Stool Mix 0 Emesis 0 Oral Regurgitation 0 Other 0 Other: Voiding Method Toilet External Catheter Bedside Commode Incontinent External Catheter # Voids 0 # Bowel Movements 0 - Labs CBC & Chem 7: 10/04/23 08:24 10/04/23 08:24 Labs: Abnormal Lab Results - Last 24 Hours (Table) 10/04/23 10/04/23 10/04/23 Range/Units 08:24 16:47 20:05 POC Glucose (mg/dL) 323 H 379 H (70-110) mg/dL Hemoglobin A1c 7.9 H (<=6.0) % 10/05/23 10/05/23 Range/Units 06:02 11:29 POC Glucose (mg/dL) 287 H 276 H (70-110) mg/dL Hemoglobin A1c (<=6.0) % Microbiology - Last 24 Hours (Table) 10/01/23 17:39 Blood Culture - Preliminary Blood 10/01/23 17:20 Blood Culture - Preliminary Blood
--- NOTE | 2023-10-05 13:30 | P.CONS ---
History of Present Illness - Reason for Consult Consult date: 10/05/23 AMS Requesting physician: Dallas Prater - Chief Complaint altered mental status - History of Present Illness The patient is an 82-year-old male with no significant oncologic history. He was admitted to the hospital secondary to altered mental status, and was found on imaging to have a lesion involving the left basal ganglia. There is no evidence of systemic disease. The patient was admitted to the emergency room on 10/01/2023. He stays in an assisted care facility. The workers of the facility checked on the patient when he had not come down for his meals the prior day. He was found down in his room. In the ER, he was found to be in atrial fibrillation with rapid response. A CT of the head revealed a 2.4 x 1.9 cm masslike enlargement of the left basal ganglia. This was not previously seen on a prior CT without contrast from 2021. A subsequent computed tomography scan of the chest, abdomen and pelvis was performed on October 01. This revealed a couple of subcentimeter pulmonary nodules, as well as a right lower lung pulmonary embolism. Ultrasound of the extremities did reveal a DVT in the right lower extremity. On October 02, an MRI of the brain was performed. This revealed the mass involving the left basal ganglia measuring 2.7 x 1.9 x 2.6 cm. This was considered concerning for possible glioma versus metastasis versus less likely cavernoma. The patient had an IVC filter placed on October 03. He had previously been taking Xarelto for Afib. At the time of my consultation, the patient reports no significant headaches or nausea. He denies pain. According to his family, he was previously quite independent at his assisted living facility. He would go on walks 3 times a day and even drive to the grocery store. They have noticed however the patient recently has not been caring for himself well and has had some issues with anger/emotional lability. Review of Systems Constitutional: Denies anorexia, Denies fever Eyes: denies decreased vision Ears: deny: decreased hearing Cardiovascular: Denies chest pain Respiratory: Denies cough Gastrointestinal: Denies abdominal pain, Denies BRBPR Integumentary: Denies rash Neurological: Reports as per HPI Psychiatric: Reports confusion Past Medical History Past Medical History: COPD, CVA/TIA, Diabetes Mellitus Additional Past Medical History / Comment(s): dementia- hallucinations (hearing and seeing things)- symptoms for months. AFIB History of Any Multi-Drug Resistant Organisms: None Reported Additional Past Surgical History / Comment(s): hand surgery Past Anesthesia/Blood Transfusion Reactions: No Reported Reaction Past Psychological History: No Psychological Hx Reported Additional Psychological History / Comment(s): Alzheimers dementia Smoking Status: Never smoker Past Alcohol Use History: Rare Past Drug Use History: Marijuana Medications and Allergies Home Medications Medication Instructions Recorded Confirmed Type Rivaroxaban [Xarelto] 20 mg PO DAILY 01/16/22 10/01/23 History lisinopriL [Zestril] 20 mg PO DIRECTED 01/16/22 10/02/23 History Potassium Chloride ER [K-Dur 20] 10 meq PO DIRECTED 10/02/23 10/02/23 History Potassium Chloride ER [K-Dur 20] 20 meq PO DIRECTED 10/02/23 10/02/23 History Allergies Allergy/AdvReac Type Severity Reaction Status Date / Time No Known Allergies Allergy Verified 10/02/23 13:28 Physical Exam Vitals: Vital Signs Temp Pulse Resp BP Pulse Ox 10/05/23 12:00 97.6 F 84 16 171/118 95 10/05/23 09:29 97 10/05/23 08:00 98 F 81 16 202/102 97 10/05/23 04:00 98 F 90 18 142/82 98 10/05/23 00:00 84 18 137/96 96 10/04/23 20:00 97.5 F L 70 18 168/82 95 10/04/23 17:05 73 18 169/99 97 Intake and Output 10/04/23 10/05/23 10/05/23 22:59 06:59 14:59 Intake Total 960 Output Total 1000 Balance 960 -1000 Intake: Oral 960 Output: Urine 1000 Other: Voiding Method External Catheter - Constitutional General appearance: no acute distress - EENT Eyes: EOMI, PERRLA ENT: hearing grossly normal - Neck Neck: no lymphadenopathy - Respiratory Respiratory: bilateral: CTA - Cardiovascular Rhythm: irregularly irregular - Gastrointestinal General gastrointestinal: no distended, no tenderness - Integumentary Integumentary: pale - Neurologic Neurologic: CNII-XII intact - Musculoskeletal Musculoskeletal: no strength equal bilaterally (4+/5 strength bilateral LE, 4/4 strength bilateral UE. ) - Psychiatric Psychiatric: no A&O x's 3 (A&O x1, thought the year was 1992.) Results CBC & Chem 7: 10/04/23 08:24 10/04/23 08:24 Labs: Abnormal Lab Results - Last 24 Hours (Table) 10/04/23 10/04/23 10/05/23 Range/Units 16:47 20:05 06:02 POC Glucose (mg/dL) 323 H 379 H 287 H (70-110) mg/dL 10/05/23 Range/Units 11:29 POC Glucose (mg/dL) 276 H (70-110) mg/dL Microbiology - Last 24 Hours (Table) 10/01/23 17:39 Blood Culture - Preliminary Blood 10/01/23 17:20 Blood Culture - Preliminary Blood CT scan - chest: report reviewed, image reviewed CT Scan - head: report reviewed, image reviewed CT scan - pelvis: report reviewed, image reviewed MRI - head: report reviewed, image reviewed Assessment and Plan Assessment: The patient is an 82-year-old male with no significant oncologic history. He was admitted to the hospital secondary to altered mental status, and was found on imaging to have a lesion involving the left basal ganglia. There is no evidence of systemic disease. Plan: 1. Left basal ganglia lesion: No clear evidence of systemic disease. I discussed with the patient's sister and daughter that the clinical picture is worrisome for a primary brain tumor. They seemed to understand that biopsy would be necessary to determine the appropriate treatment course. They understand that the patient may not be a good candidate for aggressive treatment considering his age and medical comorbidities if this is found to be a primary brain tumor. Performance status is poor right now, but the patient's family reports he was walking regularly and driving to the store prior to his hospital stay. I am requesting neuroradiology imaging review, as the lesion does appear somewhat unusual for a high grade glioma. I do feel that transfer for neurosurgery evaluation is appropriate; the patient's family is in agreement. Patient is on adequate decadron dosing. Recommend PT eval - patient has not ambulated without assistance since prior to his hospitalization. Time with Patient: Greater than 30
--- NOTE | 2023-10-05 15:27 | P.PN ---
Subjective Progress Note Date: 10/05/23 Principal diagnosis: lt basal ganglia mass, AMS In f/u today pt speech cont to be slightly slurred. Family reports he is much more alert and interactive. Pt has mild dementia at baseline. He denies headache, acute vision changes. Appetite is good. Objective - Vital Signs Vital signs: Vital Signs Temp 98 F 10/05/23 08:00 Pulse 81 10/05/23 08:00 Resp 16 10/05/23 08:00 BP 202/102 10/05/23 08:00 Pulse Ox 97 10/05/23 09:29 FiO2 Intake & Output 10/04/23 10/05/23 10/05/23 18:59 06:59 18:59 Intake Total 1180 Output Total 0 1000 Balance 1180 -1000 Intake: IV 100 Oral 1080 Output: Gastric Drainage 0 Urine 0 1000 Stool 0 Urine/Stool Mix 0 Emesis 0 Oral Regurgitation 0 Other 0 Other: Voiding Method Toilet External Catheter Bedside Commode Incontinent External Catheter # Voids 0 # Bowel Movements 0 - Constitutional General appearance: Present: average body habitus, cooperative, no acute distress - EENT Eyes: Present: anicteric sclerae, EOMI ENT: Present: hearing grossly normal - Respiratory Details: resp even and unlabored - Integumentary Integumentary: Present: pale - Neurologic Neurologic: Present: CNII-XII intact (grossly) - Musculoskeletal Musculoskeletal: Present: generalized weakness - Psychiatric Psychiatric Comment(s): Alert and oriented x3, admits some confusion about what exactly is going on. Family at bedside reports baseline mild dementia, remote Hx more intact - Labs CBC & Chem 7: 10/04/23 08:24 10/04/23 08:24 Labs: Abnormal Lab Results - Last 24 Hours (Table) 10/04/23 10/04/23 10/04/23 Range/Units 08:24 16:47 20:05 POC Glucose (mg/dL) 323 H 379 H (70-110) mg/dL Hemoglobin A1c 7.9 H (<=6.0) % 10/05/23 10/05/23 Range/Units 06:02 11:29 POC Glucose (mg/dL) 287 H 276 H (70-110) mg/dL Hemoglobin A1c (<=6.0) % Microbiology - Last 24 Hours (Table) 10/01/23 17:39 Blood Culture - Preliminary Blood 10/01/23 17:20 Blood Culture - Preliminary Blood Assessment and Plan (1) Altered mental status Current Visit: Yes Status: Acute Priority: High Code(s): R41.82 - ALTERED MENTAL STATUS, UNSPECIFIED SNOMED Code(s): 178875067 (2) Brain mass Current Visit: Yes Status: Acute Priority: High Code(s): G93.89 - OTHER SPECIFIED DISORDERS OF BRAIN SNOMED Code(s): 966431645 Plan: Left basal ganglia mass -Admit for AMS from [facility] facility -CT brain revealed masslike enlargement in the left basal ganglia region measuring approximately 2.4 x 1.9 cm with vasogenic edema causing partial compression of the anterior horn of the left lateral ventricle. -MRI brain confirms left basal ganglia mass measuring 2.7 x 1.9 x 2.6 cm with h ypoenhancement. Could represent hemorrhagic primary glioma or secondary malignancy. No additional abnormal enhancement. CT CAP showed small pulm nodule on the left and right-too small to characterize or biopsy. Suspect brain primary at this time -Pt started on IV steroids with improvement in alertness, confusion. He is near baseline per his family (mild dementia at baseline). Convert IV to oral steroids. PPI BID Rx -Reviewed with pt and family that Medical Oncology is unable to recommend any prognosis or specific treatment without biopsy. -Pt and family are interested in diagnosis. -Pt will need Neurosurgeon for biopsy. Neurology has recommended Neurosurgery transfer. Case discussed with Attending GENERAL OPERATIONS MANAGER. Agree with transfer -PSA pending Rt PE, RLE DVT -Xarelto initially held for concern for hemorrhagic brain mass. IVC filter was placed. -Pt was on xarelto for a-fib prior to admit. Documented that, per family, patient has not been taking his medications as prescribed. New PE/DVT would not be considered failure of anticoagulation at this time. -Neurology evaluation and recommendations reviewed. Not felt to be hemorrhagic stroke in the brain. Full dose anticoagulation cont to be held. Asa for stoke prevention. Kejonelle empirically. attests: I have seen and examined pt, performed H&P, developed impression and plan of care. Discussed with dictator. Agree with documentation, dictated as a scribe.
[2023-10-05 16:30] LABS: Glucose,Whole Blood 449 mg/dL (70-110)
[2023-10-05] MEDS: dexAMETHasone 2 MG TAB PO SCH (16:59)
[2023-10-05] MEDS: INSULIN DETEMIR (LEVEMIR) 100 UNIT/ML SYR SQ SCH (16:59)
[2023-10-05] MEDS: INSULIN ASPART (NovoLOG) 100 UNIT/ML VIAL SQ ONE (17:00)
--- NOTE | 2023-10-05 17:43 | P.PN ---
Subjective Progress Note Date: 10/05/23 This is an 82-year-old gentleman with a known history of CVA/TIA, diabetes mellitus, dementia, atrial fibrillation anticoagulated with Xarelto who resides at [facility]. He was found on the floor in his room on October 01, 2023 and was brought here for altered mental status by EMS. The patient does not recall how he ended up on the floor. CT scan of the brain revealed a masslike enlargement and edema involving the left basal ganglia most likely an underlying neoplasm. CT scan of the chest abdomen and pelvis revealed right pulmonary embolus with no evidence of right heart strain. Subcentimeter pulmonary nodules which are indeterminant. Prostatomegaly. Colonic dive rticulosis, cholelithiasis. Dopplers of the lower extremity revealed a DVT on the right. MRI of the brain revealed a left basal ganglia mass with hypoenhancement which could represent hemorrhagic primary glioma or secondary malignancy. He is currently on Decadron. Normal saline at 75 MLS per hour. He did undergo a IVC filter placement this morning. He is currently resting in bed. Awake and alert. He is somewhat slow to respond. He denies any shortness of breath, cough or congestion. No hemoptysis. He is maintaining good O2 saturations in the mid 90s on room air. He is afebrile. White count 14.3. Hemoglobin 15.4. Platelets 98,000. Sodium 134. Potassium 3.2. Bicarb 25. BUN 33. Creatinine 0.86. Glucose 236. On 10/05/2023, the patient is being seen for a follow-up. The patient is resting comfortably in bed. No signs of any respiratory distress. The patient has a DVT and a pulmonary embolism and the patient was given an IVC filter in place. Clinically the CAT scan of the brain also showed a 2.4 x 1.9 cm masslike enlargement of the left basal ganglia. This was not seen on the previous CAT scan of the brain that was done in 2021. MRI of the brain also confirmed the findings. No headaches. No focal neurological deficits. He is lethargic. He is weak. Prior to this admission, the patient apparently was having some personality changes also. However, he has been living independently. The patient is clinically and hemodynamically stable at this point in time. The patient will be seen by radiation oncology. The patient is also being seen by neurology. There is a concern for a primary brain tumor in this patient. He does not seem to be a good candidate for aggressive treatment considering his age and comorbidities. However, the working diagnosis is the primary brain tumor. 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 Meanwhile, the patient remains on Decad brandy 6 mg p.o. every 8 hours. He was started on Levemir insulin 10 units twice daily along with sign scale coverage for blood sugar control. He remains on Keppra 5 mg p.o. twice a day. No seizure activity. His oxygenation is stable and the patient is currently on room air oxygen with a pulse ox of 97%. Objective - Vital Signs Vital signs: Vital Signs Temp 98 F 10/05/23 08:00 Pulse 81 10/05/23 08:00 Resp 16 10/05/23 08:00 BP 202/102 10/05/23 08:00 Pulse Ox 97 10/05/23 09:29 FiO2 Intake & Output 10/04/23 10/05/23 10/05/23 18:59 06:59 18:59 Intake Total 1180 Output Total 0 1000 Balance 1180 -1000 Intake: IV 100 Oral 1080 Output: Gastric Drainage 0 Urine 0 1000 Stool 0 Urine/Stool Mix 0 Emesis 0 Oral Regurgitation 0 Other 0 Other: Voiding Method Toilet External Catheter Bedside Commode Incontinent External Catheter # Voids 0 # Bowel Movements 0 - Exam GENERAL EXAM: Alert, oriented x 1, 82-year-old male patient, on room air, comfortable in no apparent distress. HEAD: Normocephalic. EYES: Normal reaction of pupils, equal size. NOSE: Clear with pink turbinates. THROAT: No erythema or exudates. NECK: No masses, no JVD. CHEST: No chest wall deformity. LUNGS: Equal air entry with no crackles, wheeze, rhonchi or dullness. CVS: S1 and S2 normal with no audible murmur, regular rhythm. ABDOMEN: No hepatosplenomegaly, normal bowel sounds, no guarding or rigidity. SPINE: No scoliosis or deformity SKIN: No rashes CENTRAL NERVOUS SYSTEM: No focal deficits, tone is normal in all 4 extremities. EXTREMITIES: There is no peripheral edema. No clubbing, no cyanosis. Peripheral pulses are intact. - Labs CBC & Chem 7: 10/04/23 08:24 10/04/23 08:24 Labs: Abnormal Lab Results - Last 24 Hours (Table) 10/04/23 10/04/23 10/04/23 Range/Units 08:24 16:47 20:05 POC Glucose (mg/dL) 323 H 379 H (70-110) mg/dL Hemoglobin A1c 7.9 H (<=6.0) % 10/05/23 10/05/23 Range/Units 06:02 11:29 POC Glucose (mg/dL) 287 H 276 H (70-110) mg/dL Hemoglobin A1c (<=6.0) % Microbiology - Last 24 Hours (Table) 10/01/23 17:39 Blood Culture - Preliminary Blood 10/01/23 17:20 Blood Culture - Preliminary Blood Assessment and Plan Plan: Altered mental status, with suspected brain tumor. CAT scan of the brain showed a left basal ganglia mass and MRI of the brain revealed a left basal ganglia mass with hypoenhancement which could represent hemorrhagic primary glioma or secondary malignancy. 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 May consider palliative radiation therapy, the patient will be seen by radiation oncology today. Consider a neurosurgical evaluation. We will continue to follow Pulmonary status and hemodynamics are both stable.
--- NOTE | 2023-10-05 18:20 | P.DS ---
Providers Date of admission: 10/01/23 23:34 Expected date of discharge: 10/05/23 Attending physician: Julita Diaz Consults: 10/01/23 23:31 Consult Physician Routine Consulting Provider: Dallas Prater Consult Reason/Comments: Left basal ganglia mass Do you want consulting provider notified?: Yes 10/03/23 09:05 Consult Physician Urgent Consulting Provider: Puja Flores Consult Reason/Comments: PE, anticoagulant contraindicated, eval for IVC filter Do you want consulting provider notified?: Yes 10/03/23 12:01 Consult Physician Routine Consulting Provider: Yves Dang Consult Reason/Comments: Ac PE Do you want consulting provider notified?: Yes 10/03/23 12:02 Consult Physician Routine Consulting Provider: Da Dang Consult Reason/Comments: Rec on anticoagulation with brain mass Do you want consulting provider notified?: Yes 10/03/23 17:55 Consult Physician Routine Consulting Provider: James Austin Consult Reason/Comments: left basal ganglia mass Do you want consulting provider notified?: Yes Primary care physician: Ana Paula Blevins Hospital Course: Final diagnosis -Elevated troponin most likely secondary to A-fib with RVR. -A-fib with RVR, currently rate moderately controlled; metoprolol adjusted -Brain mass; CT of the brain reveals mass like enlargement in the left basal ganglia measuring approximately 2.4 x 1.9 cm with vasogenic edema causing partial compression of anterior horn of lateral ventricle on the left. -Hypertension -Hyperlipidemia -Dementia with dysphagia -Moderate calorie malnutrition with a BMI of 19.3 -GI prophylaxis -DVT prophylaxis, SCDs only, anticoagulation on hold with newly diagnosed brain mass ongoing further workup -Full code Discharge disposition Patient is being transferred in a stable condition with guarded prognosis to [facility] in [place]. Dr. Leslie accepts the patient and currently awaiting a bed patient will follow-up with Dr. Blevins in the outpatient setting upon discharge. Patient is to continue with current medications and outpatient follow-up with oncology and radiation oncology as scheduled. Total time taken is greater than 35 minutes. Hospital course This is a 82-year-old male who was recently admitted with altered mental status with CT findings of a brain mass on the left basal ganglia. Neurology along with oncology and radiation oncology evaluated the patient recommending transfer for tertiary treatment for neurosurgery evaluation. Family and patient are agreeable to the transfer and currently awaiting a bed. Patient has been accepted by Dr. Leslie at [facility]. Patient noted to have history of CVA and reportedly A-fib and was evaluated by cardiology as well. Anticoagulation on hold with risk of bleed. Patient's blood sugars are elevated and continued on sliding scale and long-acting as patient is on Decadron and has transition to oral per radiation oncology. Please refer to other consultation notes for further HPI. Currently no reports of chest pain, shortness of breath, or palpitations. Patient is afebrile. No reports of nausea or vomiting and patient is tolerating diet. Patient was reevaluated by speech today as mentation has improved and tolerated recommend to continue with aspiration precautions. Patient will be going to [facility] in [place] once a bed becomes available for neurosurgery evaluation. Overall guarded prognosis. Physical exam: Gen: This is a 82-year-old male who is awake, alert and oriented x 3, well- developed, elderly appearing, ill-appearing HEENT: Head is atraumatic, normocephalic. Pupils equal, round. Sclerae is anicteric. NECK: Supple. No JVD. No lymphadenopathy. No thyromegaly. LUNGS: Diminished breath sounds bilaterally otherwise clear to auscultation. No wheezes or rhonchi. No intercostal retractions. HEART: S1, S2 are muffled, irregular ABDOMEN: Soft. Bowel sounds are present. No masses. No tenderness. EXTREMITIES: No pedal edema. No calf tenderness. NEUROLOGICAL: Patient is awake, alert and oriented x2-3. Cranial nerves 2 through 12 are grossly intact. Diffusely weak Please refer to medication reconciliation sheet for a list of medications. The impression and plan of care has been dictated by Angela Calderon, Nurse Practitioner as directed. Dr. Irais MD I have performed a history and examination and MDM of this patient, discussed the same with the dictator, and agree with the dictator's assessment and plan as written ,documented as a scribe. Based on total visit time, I have performed more than 50% of the visit. Patient Condition at Discharge: Stable Plan - Discharge Summary Discharge Rx Participant: No New Discharge Prescriptions: No Action Potassium Chloride ER [K-Dur 20] 20 meq PO DIRECTED RX: lisinopriL [Zestril] 20 mg PO DIRECTED RX: Rivaroxaban [Xarelto] 20 mg PO DAILY Potassium Chloride ER [K-Dur 20] 10 meq PO DIRECTED Discharge Medication List RX: Rivaroxaban [Xarelto] 20 mg PO DAILY 01/16/22 [History] RX: lisinopriL [Zestril] 20 mg PO DIRECTED 01/16/22 [History] Potassium Chloride ER [K-Dur 20] 10 meq PO DIRECTED 10/02/23 [History] Potassium Chloride ER [K-Dur 20] 20 meq PO DIRECTED 10/02/23 [History] Follow up Appointment(s)/Referral(s): Ana Paula Blevins MD [Primary Care Provider] - 1-2 days Activity/Diet/Wound Care/Special Instructions: Patient will be transferred to [facility] in [place] once a bed is available. Patient was accepted by Dr. Leslie of [facility]. Patient going for neurosurgery evaluation and patient and family are aware and agreeable to this transfer Discharge Disposition: OTHER INSTITUTION NOT DEFINED
[2023-10-05 20:05] LABS: Glucose,Whole Blood 373 mg/dL (70-110)
[2023-10-05 22:31] VITALS: TEMP 97.9
[2023-10-06 05:39] LABS: Glucose,Whole Blood 125 mg/dL (70-110)
[2023-10-06 07:00] VITALS: BP 170/95; PULSE 77
--- NOTE | 2023-10-10 00:24 | P.PN ---
Subjective Progress Note Date: 10/05/23 Patient was seen for a follow-up. Patient was seen by Dr. Austin radiation oncologist, from [facility]. Notes reviewed. He feels its like a CVA. Recommended to follow-up patient with neurosurgery. Speech therapist noticed some droop on one side of the lip. Today patient is more alert and responding w ell. Their differential diagnosis from imaging is this could represent hypertensive stroke with hemorrhagic conversion. Cannot completely rule out an underlying brain tumor/metastases, but these were felt less likely. Repeat imaging would be recommneded in 3-4 weeks to ensure improvement/stability. Agree with holding anticoagulation. Higher level of care transfer is still reasonable, however would be more reluctant regarding intervention, especially considering location. Objective - Vital Signs Vital signs: Vital Signs Temp 97.6 F 10/05/23 12:00 Pulse 84 10/05/23 12:00 Resp 16 10/05/23 12:00 BP 171/118 10/05/23 12:00 Pulse Ox 95 10/05/23 12:00 FiO2 Intake & Output 10/04/23 10/05/23 10/05/23 18:59 06:59 18:59 Intake Total 1180 Output Total 0 1000 Balance 1180 -1000 Intake: IV 100 Oral 1080 Output: Gastric Drainage 0 Urine 0 1000 Stool 0 Urine/Stool Mix 0 Emesis 0 Oral Regurgitation 0 Other 0 Other: Voiding Method Toilet External Catheter Bedside Commode Incontinent External Catheter # Voids 0 # Bowel Movements 0 - Exam Patient is an elderly male, in no acute distress. Patient does have a flat affect. Patient is alert awake, in no distress. Speech and language functions appears normal. Patient can name most objects presented including knuckles, button, collar, ear, but he could not tell the earlobe (says bottom of the ear) and repeat very well. No aphasia or dysarthria. Attention, concentration intact and fund of knowledge is limited. On cranial nerve examination, pupils are equal, round and reacting to light, visual price are full on confrontation, with no neglect on double simultaneous stimulation. Extraocular muscles are intact with no nystagmus. Face is symmetric, tongue protrudes to the midline. Palatal elevation and sensation normal, hearing is mild to moderately decreased and shoulder shrug normal, facial sensation normal. On muscle strength testing, there is mild right pronator drift and the strength is normal in arms and legs distally and proximally, except hip flexion which is 4 bilaterally. Deep tendon reflexes are symmetric trace to 1 all over and plantars downgoing bilaterally. Sensory to touch is equal with no neglect on double simultaneous stimulation. Cerebellar function showed no ataxia for [id number]-ct-[id number] testing. No dysdiadochokinesia. No ataxia for orsr-xt-nebu testing on either side. Tone and bulk of muscles normal. Gait deferred.. On general examination, there is no carotid bruit or murmur, S1-S2 audible. Chest is clear on consultation. Abdomen is soft nontender. No organomegaly, bowel sounds present. Peripheral pulses are present. No peripheral edema. 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 - Labs CBC & Chem 7: 10/04/23 08:24 10/04/23 08:24 Labs: Abnormal Lab Results - Last 24 Hours (Table) 10/04/23 10/04/23 10/05/23 Range/Units 16:47 20:05 06:02 POC Glucose (mg/dL) 323 H 379 H 287 H (70-110) mg/dL 10/05/23 Range/Units 11:29 POC Glucose (mg/dL) 276 H (70-110) mg/dL Microbiology - Last 24 Hours (Table) 10/01/23 17:39 Blood Culture - Preliminary Blood 10/01/23 17:20 Blood Culture - Preliminary Blood Assessment and Plan Assessment: 82-year-old male, found down on the floor at the residence. Abnormal brain MRI, with evidence of possible slight hemorrhagic mass left basal ganglia. Differential includes hemorrhagic mass versus ischemic CVA with mild hemorrhagic conversion. Intermittent episodes of staring off since March 2023, rule out focal seizures. Acute DVT with PE. Atrial fibrillation with rapid ventricular rate. Patient was on Xarelto, currently on hold. Noncompliance with medication Hypertension Hyperlipidemia Elevated cardiac enzymes Hyperlipidemia Leukocytosis Plan: MRI of the brain revealed new from 2011, left basal ganglia mass with hypoenhancement, which could represent hemorrhagic primary glioma or secondary malignancy (metastatic disease). Cavernoma is felt to be less likely given no finding on 2012 study. No additional abnormal enhancement seen throughout the brain. I personally reviewed MRI, and appears ischemic stroke with slight hemorrhagic conversion. Patient is noncompliant with medication, probably not taking Xarelto regularly therefore may have resulted in a CVA. Left caudate area appears more ischemic infarction, but there is an adjacent oval area of abnormal signal, which concerns for possible mass lesion. Repeat CT head performed on 10/04/2023 revealed left basal ganglia mass without evidence of hemorrhage. I personally reviewed CT head, agree with the findings. 2D echo revealed normal left ventricular size with EF 50 to 55%. Hypokinetic basal segment. Right ventricle not well-visualized. Severely increased left atrial volume. Moderately increased left atrial area. No valvular a bnormalities. Carotid Doppler revealed no hemodynamically significant stenosis in either ICA. Antegrade flow in both vertebral arteries. Patient is having episodes of staring off spells. EEG was abnormal due to background slowing of moderate to severe degree. This is suggestive of generalized cerebral dysfunction, as can be seen with toxic metabolic encephalopathy, or related to diffuse structural brain abnormality. No epileptiform activity was seen. Cholesterol 225, LDL 167, HDL 37, triglycerides 95. Recommend starting statins with Lipitor 40 mg daily. Hemoglobin A1c 7.9. Recommend optimize control of diabetes to target A1c <7.0 B12 898, folate 5.3, TSH 1.02, all normal Patient was recommended IVC filter by Dr. Dang. This has been placed. Xarelto has been put on hold because of concern about hemorrhagic CVA. Repeat CT head in the morning. If no hemorrhage, then will be clear for low intensity anticoagulation. DVT prophylaxis: Will defer to IM. Patient has DVT. Patient being transferred to [facility] for neurosurgical consultation to rule out brain mass.
== END 2023-10-06 07:21 | disposition short-term general hospital (02) | DRG 54 ==
LOC: EC 16:32 → 3SCARD 23:34
PROVIDERS: ADMIT Hospitalist; ATTEND Hospitalist
PROC: B51B1ZZ Fluoroscopy of Right Lower Extremity Veins using Low Osmolar Contrast (ICD-10-PCS; principal; 2023-10-04 14:00)
PROC: 06H03DZ Insertion of Intraluminal Device into Inferior Vena Cava, Percutaneous Approach (ICD-10-PCS; principal; 2023-10-04 14:00)
DX: D49.6 Neoplasm of unspecified behavior of brain (principal); G93.6 Cerebral edema; I26.99 Other pulmonary embolism without acute cor pulmonale; I82.431 Acute embolism and thrombosis of right popliteal vein; E44.0 Moderate protein-calorie malnutrition; I48.19 Other persistent atrial fibrillation; Z68.1 Body mass index [BMI] 19.9 or less, adult; L89.90 Pressure ulcer of unspecified site, unspecified stage; E11.9 Type 2 diabetes mellitus without complications; D72.829 Elevated white blood cell count, unspecified; G30.9 Alzheimer's disease, unspecified; F02.A0 Dementia in other diseases classified elsewhere, mild, without behavioral disturbance, psychotic disturbance, mood disturbance, and anxiety; J44.9 Chronic obstructive pulmonary disease, unspecified; E78.5 Hyperlipidemia, unspecified; R13.10 Dysphagia, unspecified; K57.30 Diverticulosis of large intestine without perforation or abscess without bleeding; K80.20 Calculus of gallbladder without cholecystitis without obstruction; N40.1 Benign prostatic hyperplasia with lower urinary tract symptoms; N39.498 Other specified urinary incontinence; H91.90 Unspecified hearing loss, unspecified ear; R79.89 Other specified abnormal findings of blood chemistry; Z91.148 Patient's other noncompliance with medication regimen for other reason; Z79.01 Long term (current) use of anticoagulants; Z79.899 Other long term (current) drug therapy; Z86.718 Personal history of other venous thrombosis and embolism; Z86.73 Personal history of transient ischemic attack (TIA), and cerebral infarction without residual deficits
CPT/HCPCS: 36415; 37191; 70450; 70553; 71045; 71260; 74177; 80048; 80053; 80061; 80320; 81001; 82140; 82550; 82552; 82607; 82746; 83036; 84153; 84443; 84484; 85025; 85610; 85730; 87040; 93005; 93306; 93880; 93970; 94760; 95816; 96361; 96375; 96376; 99291

== ENCOUNTER 2024-08-06 15:45 | Inpatient (IN) | payer MEDICARE, BC ==
--- NOTE | 2024-08-06 16:14 | CT ---
EXAMINATION TYPE: CODE STROKE: CT brain wo contr DATE OF EXAM: 08/06/2024 4:05 PM COMPARISON: CT head 10/04/2023.. CLINICAL INDICATION: Male, 83 years old with history of Neuro deficit, acute, stroke suspected, Code stroke: AMS and facial droop. Hx of stroke. TECHNIQUE: Brain: Axial CT images of the brain were obtained with coronal and sagittal reformats created and rev iewed. Contrast used: None. Oral contrast used: None. CT DLP: 1278.6 mGycm, Automated exposure control for dose reduction was used. FINDINGS: Brain: Extra-axial spaces: No abnormal extra-axial fluid collections. Ventricular system: Dilatation in proportion to cerebral atrophy. Mild ex vacuo dilatation of the fro ntal horn of the left lateral ventricle. Cerebral parenchyma: No acute intraparenchymal hemorrhage or mass effect. Encephalomalacia in the le ft frontal lobe. Scattered hypoattenuating areas are seen within the white matter. Cerebellum: Unremarkable. Mass effect: No evidence of midline shift. Intracranial vasculature: unremarkable Soft tissues: Normal. Calvarium/osseous structures: No depressed skull fracture. Paranasal sinuses and mastoid air cells: Mild scattered paranasal sinus disease. Visualized orbits: Orbital contents are intact. IMPRESSION: No acute intracranial hemorrhage, midline shift or acute mass effect. [facility], , 08/06/2024 4:11 PM
[2024-08-06 16:18] LABS: Basophils # (A) 0.07 10*3/uL (0.00-0.10); Basophils % (A) 0.8 %; Eosinophils # (A) 0.19 10*3/uL (0.04-0.35); Eosinophils % (A) 2.1 %; HCT 46.5 % (39.6-50.0); Lymphocytes # (A) 3.06 10*3/uL (0.90-5.00); MCHC 34.4 g/dL (32.0-37.0); MCV 90.1 fL (80.0-97.0); Mean Platelet Volume 10.1 fL (9.5-12.2); Monocytes # (A) 1.02 10*3/uL (0.20-1.00); Monocytes % (A) 11.3 %; Neutrophils # (A) 4.65 10*3/uL (1.80-7.70); Neutrophils % (A) 51.7 %; Platelet Count 247 10*3/uL (140-440); RBC 5.16 10*6/uL (4.40-5.60); RDW 14.5 % (11.5-14.5)
[2024-08-06 16:34] LABS: INR 1.2 (<1.2); Prothrombin Time 12.9 sec (10.0-12.5)
--- NOTE | 2024-08-06 16:40 | CT ---
EXAMINATION TYPE: CT angio head neck DATE OF EXAM: 08/06/2024 4:21 PM COMPARISON: Multiple prior CT and MRI studies, most recent dated 10/14/2023. CLINICAL INDICATION: Male, 83 years old with history of Neuro deficit, acute, stroke suspected; [facility], Code stroke: AMS and facial droop. Hx of stroke. Prior on pacs JG TECHNIQUE: Axially acquired helical CT angiogram of the head and neck was obtained with contrast. Axi al images are supplemented with 3D reconstructions and MIP images which were post-processed at an in dependent workstation. NASCET criteria used. Contrast used:65cc mL of Isovue 370 with IV Contrast, Oral contrast used: None. CT DLP: 531.5 mGycm, Automated exposure control for dose reduction was used. FINDINGS: CTA HEAD: No evidence of acute intracranial hemorrhage, mass effect, or midline shift. The ventricles, sulci, a nd cisterns are unremarkable. Vertebral arteries: The vertebral arteries are patent. Vertebral artery dominance: Codominant Basilar artery: The basilar artery is diminutive in caliber with possible filling from the left verte bral artery, this appears similar to prior MRI study 10/03/2023. Internal Carotid arteries: The cervical, petrous, cavernous and supraclinoid segments are normal. MARYAM: Patent with no evidence of aneurysm. ACOM: Present without evidence of aneurysm. MCA: Patent with no evidence of aneurysm. 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 TRIMMER LOADER: Patent with no evidence of aneurysm. PCOM: Present bilaterally and patent. Dural sinuses: Patent. CTA NECK: Right Carotid System: Approximately 60-70% stenosis of the right common carotid and proximal right ICA artery due to dense calcified plaque The remaining portions of the internal carotid artery demonstrate normal size withou t significant narrowing. Left Carotid System: Approximately 50-60% stenosis of the left common carotid artery and proximal left ICA due to dense ca llus by plaque. The remaining portions of the internal carotid artery demonstrate normal size without significant narrowing. Vertebral arteries are grossly patent without evidence hemodynamically significant stenosis. There is a three-vessel aortic arch. The origins of the great vessels are patent. No evidence of hemo dynamically significant stenosis. Multilevel cervical spine degenerative changes. Upper thorax: IMPRESSION: 1. No evidence of acute dissection of the cervical internal carotid arteries or vertebral arteries. 2. Approximately 60-70% stenosis of the right common carotid and proximal right ICA due to dense nenita cified plaque. 3. No evidence of intracranial high-grade/flow-limiting stenosis or intracranial aneurysm. [facility], , 08/06/2024 4:38 PM
[2024-08-06 16:49] LABS: ALT 18 U/L (4-49); AST 24 U/L (17-59); African American GFR (CKD) >90 (>60 ml/min/1.73 sqM); Albumin 3.9 g/dL (3.5-5.0); Alkaline Phosphatase 88 U/L (38-126); Anion Gap 11 mmol/L; Blood Urea Nitrogen 17 mg/dL (9-20); Calcium 9.3 mg/dL (8.4-10.2); Carbon Dioxide 23 mmol/L (22-30); Chloride 105 mmol/L (98-107); Creatine Kinase 53 U/L (55-170); Glucose 119 mg/dL (74-99); Non-African American GFR(CKD) 83 (>60 ml/min/1.73 sqM); Potassium 3.9 mmol/L (3.5-5.1); Sodium 139 mmol/L (137-145); Total Bilirubin 0.9 mg/dL (0.2-1.3)
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
--- NOTE | 2024-08-06 17:55 | XR ---
EXAMINATION TYPE: XR chest 1V DATE OF EXAM: 08/06/2024 5:48 PM COMPARISON: Prior chest radiograph 10/01/2023. CLINICAL INDICATION: Male, 83 years old with history of weakness; [facility] TECHNIQUE: XR chest 1V Frontal view of the chest. FINDINGS: Lungs/Pleura: There is no evidence of pleural effusion, focal consolidation, or pneumothorax. Pulmonary vascularity: Unremarkable. Heart/mediastinum: Cardiomediastinal silhouette is unremarkable. Musculoskeletal: No acute osseous pathology. Other findings: None IMPRESSION: No acute cardiopulmonary disease/process. [facility], , 08/06/2024 5:52 PM
[2024-08-06] MEDS ORDERED: NALOXONE 0.4 MG/ML 1 ML VIAL IV PRN (18:10)
[2024-08-06 18:11] LABS: Appearance,Urine Cloudy (Clear); Bilirubin,Urine Negative (Negative); Blood,Urine Large (Negative); Budding Yeast,Urine Few /hpf; Color,Urine Light Yellow; Glucose,Urine (UA) 4+ (Negative); Ketones,Urine 1+ (Negative); Leukocyte Esterase,Urine Large (Negative); Mucus,Urine Rare /hpf; Nitrite,Urine Positive (Negative); PH, Urine 5.5 (5.0-8.0); Protein,Urine Trace (Negative); RBC,Urine 137 /hpf (0-5); Specific Gravity,Urine 1.043 (1.001-1.035); Urobilinogen,Urine <2.0 mg/dL (<2.0); WBC,Urine 60 /hpf (0-5)
[2024-08-06 21:36] LABS: Glucose,Whole Blood 105 mg/dL (70-110)
[2024-08-06] MEDS: cefTRIAXone 1 GM in DEXTROSE 5% IN WATER 50 ML IVPB STA (23:11)
[2024-08-07 05:57] LABS: Glucose,Whole Blood 116 mg/dL (70-110)
[2024-08-07 09:37] LABS: BUN/Creat Ratio 18.78 Ratio (12.00-20.00); Blood Urea Nitrogen 16.9 mg/dL (9.0-27.0); Calcium 9.3 mg/dL (8.7-10.3); Carbon Dioxide 20.4 mmol/L (21.6-31.8); Chloride 106 mmol/L (96-109); Glucose 117 mg/dL (70-110); Sodium 141 mmol/L (135-145)
[2024-08-07 09:53] LABS: Basophils # (A) 0.08 X 10*3/uL (0.00-0.10); Basophils % (A) 0.7 %; Eosinophils # (A) 0.11 X 10*3/uL (0.04-0.35); Eosinophils % (A) 0.9 %; HCT 49.3 % (39.6-50.0); HGB 16.5 g/dL (13.0-17.0); Lymphocytes # (A) 2.18 X 10*3/uL (0.90-5.00); MCH 30.6 pg (27.0-32.0); MCHC 33.5 g/dL (32.0-37.0); MCV 91.5 FL (80.0-97.0); Mean Platelet Volume 11.2 FL (9.5-12.2); Monocytes # (A) 1.22 X 10*3/uL (0.20-1.00); Monocytes % (A) 10.1 %; NRBC Per 100 WBC 0 X 10*3/uL (0.00-0.01); Neutrophils # (A) 8.48 X 10*3/uL (1.80-7.70); Neutrophils % (A) 69.9 %; Platelet Count 258 X 10*3/uL (140-440); RBC 5.39 X 10*6/uL (4.40-5.60); RDW 14.7 % (11.5-14.5); WBC 12.12 X 10*3/uL (4.50-10.00)
[2024-08-07] MEDS: INSULIN GLARGINE (LANTUS) 100 UNIT/ML SYR SQ SCH (11:33)
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
[2024-08-07 12:16] LABS: Glucose,Whole Blood 122 mg/dL (70-110)
--- NOTE | 2024-08-07 14:36 | P.CNNES ---
History of Present Illness Consult date: 08/07/24 Reason for Consult: Strokelike symptoms History of Present Illness: The patient is an 83-year-old male who is seen in neurologic consultation on August 07, 2024, in collaboration with Jacqueline Miller, via teleneurology. History is obtained from review of the chart as well as from the patient's sister, who is present at the bedside at the time of the evaluation. The patient's sister reports that the patient had a similar episode last year, i n January. She says that it was not exactly the same however the patient eventually ended up getting transferred to [facility] where he was diagnosed with a basal ganglia hemorrhage with surrounding edema. He was seen by neurosurgery. He did not undergo surgery. 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 The sister has a copy of her report records as well as a copy of the MRI report with her. The MRI reports a left basal ganglia bleed as well as a "incidental subacute infarct involving the left centrum semiovale". Since that time, the patient has not walked. This is because he believes she is unable to walk. The patient is able to stand, bear weight and transfer. For the most part however, the patient reportedly spends his time in bed. The patient is, at baseline, verbal, in fact he is described as quite talkative. Also at baseline, the patient has movement of his right upper and lower extremities. On the morning of presentation to the emergency department, the patient was found to be nonverbal. Apparently he was assessed early in the morning and was found to be nonverbal. Later in the day, he was assessed again and continued to be nonverbal, because of this, the patient was brought into the emergency department. Patient is living in a retirement. The patient has a past medical history of atrial fibrillation, on Xarelto, previous cerebral hemorrhage, hypertension, dementia and diabetes mellitus. In the emergency department, CT scan of the brain was performed. There is no reported evidence of acute hemorrhage or infarct. Review of Systems Unable to obtain secondary to mental status of patient Past Medical History Past Medical History: COPD, CVA/TIA, Diabetes Mellitus Additional Past Medical History / Comment(s): dementia- hallucinations (hearing and seeing things)- symptoms for months. AFIB History of Any Multi-Drug Resistant Organisms: None Reported Additional Past Surgical History / Comment(s): hand surgery left hand , pt is missing 4th and 5th digit. Past Anesthesia/Blood Transfusion Reactions: No Reported Reaction Past Psychological History: No Psychological Hx Reported Additional Psychological History / Comment(s): Alzheimers dementia Smoking Status: Never smoker Past Alcohol Use History: Rare Past Drug Use History: Marijuana Medications and Allergies Home Medications Medication Instructions Recorded Confirmed Type Rivaroxaban [Xarelto] 20 mg PO DAILY 01/16/22 08/06/24 History lisinopriL [Zestril] 20 mg PO DAILY 01/16/22 08/06/24 History Acetaminophen Tab [Tylenol] 650 mg PO TID 08/06/24 08/06/24 History Donepezil [Aricept] 10 mg PO DAILY 08/06/24 08/06/24 History Empagliflozin [Jardiance] 10 mg PO DAILY 08/06/24 08/06/24 History Folic Acid 1 mg PO DAILY 08/06/24 08/06/24 History INSULIN LISPRO (humaLOG) [humaLOG] See Protocol SQ ACHS 08/06/24 08/06/24 History Insulin Glargine (Lantus) [Lantus 10 unit SQ DAILY 08/06/24 08/06/24 History Vial] Magnesium Hydroxide [Milk of 7,200 mg PO DAILY PRN 08/06/24 08/06/24 History Magnesia Concentrate] Menthol [Biofreeze] 1 applic TOPICAL BID 08/06/24 08/06/24 History Menthol [Biofreeze] 1 applic TOPICAL DAILY PRN 08/06/24 08/06/24 History Na Phos,M-B/Na Phos,Di-Ba [Fleet 133 ml RECTAL DAILY PRN 08/06/24 08/06/24 History Adult] Ondansetron [Zofran] 4 mg PO Q8HR PRN 08/06/24 08/06/24 History Potassium Chloride ER [K-Dur 10] 30 meq PO DAILY 08/06/24 08/06/24 History Simvastatin [Zocor] 40 mg PO HS 08/06/24 08/06/24 History Sodium Chloride Tab 1 gm PO TID 08/06/24 08/06/24 History Thiamine [Vitamin B-1] 100 mg PO DAILY 08/06/24 08/06/24 History Venlafaxine HCl [Effexor] 75 mg PO DAILY 08/06/24 08/06/24 History amLODIPine [Norvasc] 5 mg PO DAILY 08/06/24 08/06/24 History atenoloL 100 mg PO DAILY 08/06/24 08/06/24 History bisacodyL [Dulcolax] 10 mg RECTAL DAILY PRN 08/06/24 08/06/24 History levETIRAcetam [Keppra] 500 mg PO Q12HR 08/06/24 08/06/24 History polyethylene glycoL 3350 [Miralax] 17 gm PO Q3D PRN 08/06/24 08/06/24 History Allergies Allergy/AdvReac Type Severity Reaction Status Date / Time No Known Allergies Allergy Verified 08/06/24 16:02 Physical Examination - Vital Signs Vital Signs: Vital Signs Temp Pulse Pulse Resp BP BP Pulse Ox 08/07/24 07:15 98.4 F 99 15 137/86 97 08/07/24 02:00 18 08/07/24 00:00 98.7 F 92 18 175/94 97 08/06/24 22:04 97.5 F L 76 18 170/83 97 08/06/24 20:32 62 18 148/83 99 08/06/24 20:00 73 18 147/94 99 08/06/24 19:32 78 18 146/84 99 08/06/24 19:18 70 17 150/94 99 08/06/24 18:00 61 17 143/84 99 08/06/24 17:13 71 17 162/89 98 08/06/24 16:01 97.7 F 67 18 181/96 99 Intake and Output 08/06/24 08/07/24 08/07/24 22:59 06:59 14:59 Output Total 100 Balance -100 Output: Urine 100 Other: Voiding Method External Catheter # Voids 1 1 Weight 79.923 kg 85 kg General: The patient is reclining in the bed. Well-nourished, well-developed and in no acute distress HEENT: Head is atraumatic, normocephalic. The patient's head is positioned to the left. There is no scleral icterus. Fundus not visualized. Mucous membranes are moist. Neck: Supple without carotid bruits Heart: Regular rate rhythm Lungs: No evidence of shortness of breath or cough Extremities: Without edema Neurological examination Mental status: The patient is awake and alert. The patient is nonverbal. He f ollows intermittent commands. Cranial nerves: Pupils are equal at 2 mm and reactive. There is no blink to right-sided visual threat. Right facial droop is present. Other cranial nerves cannot be assessed secondary to inability of patient to cooperate. Motor: Left cage cashier strength 5/5. The right upper extremity is flaccid. There is resistance to passive movement of the left lower extremity. Sensation: The patient pulls both feet away from noxious stimulation. Coordination: Unable to be assessed at this time. Deep tendon reflexes: 3+/4+ in the brachioradialis reflex. All other reflexes are absent and patellar reflexes. Plantar responses extensor bilaterally. Gait: Not assessed Results CT scan of the brain images have been personally viewed. I agree with radiology report - Laboratory Findings CBC and BMP: 08/07/24 06:03 08/07/24 06:03 Abnormal Lab Findings: Abnormal Labs 08/06/24 08/06/24 08/06/24 15:47 15:47 15:47 WBC RDW Immature Gran # Neutrophils # Monocytes # 1.02 H PT 12.9 H INR 1.2 H Carbon Dioxide Anion Gap Glucose 119 H POC Glucose (mg/dL) Creatine Kinase 53 L Ur Specific [place] Urine Protein Urine Glucose (UA) Urine Ketones Urine Blood Ur Leukocyte Esterase Urine RBC Urine WBC Urine Mucus Urine Yeast (Budding) 08/06/24 08/07/24 08/07/24 17:30 05:55 06:03 WBC 12.12 H RDW 14.7 H Immature Gran # 0.05 H Neutrophils # 8.48 H Monocytes # 1.22 H PT INR Carbon Dioxide Anion Gap Glucose POC Glucose (mg/dL) 116 H Creatine Kinase Ur Specific [place] 1.043 H Urine Protein Trace H Urine Glucose (UA) 4+ H Urine Ketones 1+ H Urine Blood Large H Ur Leukocyte Esterase Large H Urine RBC 137 H Urine WBC 60 H Urine Mucus Rare H Urine Yeast (Budding) Few H 08/07/24 06:03 WBC RDW Immature Gran # Neutrophils # Monocytes # PT INR Carbon Dioxide 20.4 L Anion Gap 14.60 H Glucose 117 H POC Glucose (mg/dL) Creatine Kinase Ur Specific [place] Urine Protein Urine Glucose (UA) Urine Ketones Urine Blood Ur Leukocyte Esterase Urine RBC Urine WBC Urine Mucus Urine Yeast (Budding) Assessment and Plan Assessment: 1. The patient is an 83-year-old male with a previous history of left basal ganglia bleed and ischemic infarct involving the left centrum semiovale. Current symptoms are consistent with a subsequent stroke involving the left middle cerebral artery territory with resultant global aphasia 2. Urinary tract infection 3. History of atrial fibrillation 4. History of ischemic infarct 5. History of dementia 6. History of diabetes mellitus Plan: 1. MRI of the brain has been ordered to further evaluate for cerebral ischemia 2. Stroke order set has been placed 3. Speech therapy evaluation for swallow and aphasia 4. Physical and Occupational Therapy evaluations 5. 2D echocardiogram has been ordered 6. Aspirin 81 mg has been started. Following completion of the MRI consider restarting Xarelto with aspirin. 7. Dr. Lyle will assume neurologic coverage of this patient as of August 08, 2024 Thank you for allowing us to participate in care of this patient Time with Patient: Greater than 30 (65 minutes were spent caring for this patient today including, obtaining history, examining the patient, reviewing imaging, chart documentation, labs, placing orders and creating this note)
[2024-08-07] MEDS: amLODIPine 5 MG TAB PO SCH (15:22)
[2024-08-07] MEDS: lisinopriL 20 MG TAB PO SCH (15:22)
[2024-08-07] MEDS: DAPAGLIFLOZIN PROPANEDIOL 5 MG TABLET PO SCH (15:22)
[2024-08-07] MEDS: DONEPEZIL 10 MG TAB PO SCH (15:22)
[2024-08-07] MEDS: levETIRAcetam 500 MG TAB PO SCH (15:22)
[2024-08-07] MEDS: FOLIC ACID 1 MG TAB PO SCH (15:22)
[2024-08-07] MEDS: atenoloL 50 MG TAB PO SCH (15:22)
[2024-08-07] MEDS: POTASSIUM CHLORIDE ER 10 MEQ TAB.ER.PRT PO SCH (15:23)
[2024-08-07] MEDS: THIAMINE 100 MG TAB PO SCH (15:23)
[2024-08-07] MEDS: VENLAFAXINE HCL 75 MG TAB PO SCH (15:23)
[2024-08-07] MEDS: SODIUM CHLORIDE TAB 1 GM TAB PO SCH (15:23)
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
[2024-08-07 17:36] LABS: Glucose,Whole Blood 147 mg/dL (70-110)
--- NOTE | 2024-08-07 18:39 | XR ---
EXAMINATION TYPE: XR chest 1V DATE OF EXAM: 08/07/2024 6:33 PM COMPARISON: 08/06/2024r CLINICAL INDICATION: Male, 83 years old with history of confirm NG tube placement, TECHNIQUE: XR chest 1V view(s) obtained. FINDINGS: The heart size is normal. The pulmonary vasculature is normal. A 0.9 cm nodule may be the upper outer right lung. This was not identified previously Nasogastric tube is coiled within the hypopharynx. IMPRESSION: 1. No acute pulmonary process. 2. 0.9 cm nodule upper outer right lung. Follow-up recommended. 3. Nasogastric tube curled within the Hypopharynx [facility], , 08/07/2024 6:37 PM
[2024-08-07 20:02] LABS: Glucose,Whole Blood 164 mg/dL (70-110)
[2024-08-07] MEDS: ATORVASTATIN 20 MG TAB PO SCH (22:00)
[2024-08-08 05:36] LABS: Glucose,Whole Blood 127 mg/dL (70-110)
[2024-08-08] MEDS: SODIUM CHLORIDE 0.9% 1,000 ML IV SCH (06:54)
[2024-08-08] MEDS ORDERED: ZINC OXIDE PASTE (Z-GUARD) 1 APPLIC TOPICAL PRN (07:39)
[2024-08-08] MEDS: HEPARIN SODIUM,PORCINE 5,000 UNIT/ML 1 ML VIAL SQ SCH (10:11)
[2024-08-08 11:02] LABS: BUN/Creat Ratio 21.83 Ratio (12.00-20.00); Blood Urea Nitrogen 26.2 mg/dL (9.0-27.0); Carbon Dioxide 20.3 mmol/L (21.6-31.8); Chloride 110 mmol/L (96-109); Glucose 122 mg/dL (70-110); Sodium 144 mmol/L (135-145)
--- NOTE | 2024-08-08 12:22 | P.PN ---
Subjective Progress Note Date: 08/08/24 Patient was initially seen by Dr. Quigley. Please refer to her note for details. Patient has presented with possible left MCA territory infarct. Patient has history of left basal ganglia bleed as well. MRI of the brain has been ordered. Patient at present is laying in the bed, in no acute distress. He is making eye contact. Patient is mute. Objective - Vital Signs Vital signs: Vital Signs Temp 99.1 F 08/08/24 07:55 Pulse 90 08/08/24 07:55 Resp 16 08/08/24 07:55 BP 155/92 08/08/24 07:55 Pulse Ox 95 08/08/24 07:55 FiO2 Intake & Output 08/07/24 08/08/24 08/08/24 18:59 06:59 18:59 Output Total 400 Balance -400 Weight 82 kg Output: Urine 400 Other: Voiding Method Diaper External Catheter External Catheter # Voids 0 # Bowel Movements 0 - Exam Patient is laying in the bed, in no acute distress. Patient is nonverbal. He has right-sided hemiparesis. Patient is squeezing left hand. He is lifting his left arm on command. He is wiggling his left foot. The strength appears normal on the left side. Patient is flaccid on the right side. - Labs CBC & Chem 7: 08/07/24 06:03 08/08/24 05:24 Labs: Abnormal Lab Results - Last 24 Hours (Table) 08/07/24 08/07/24 08/07/24 Range/Units 12:14 17:34 20:01 Chloride (96-109) mmol/L Carbon Dioxide (21.6-31.8) mmol/L Anion Gap (4.00-12.00) mmol/L Est GFR (CKD-EPI) (>=60) BUN/Creatinine Ratio (12.00-20.00) Ratio Glucose (70-110) mg/dL POC Glucose (mg/dL) 122 H 147 H 164 H (70-110) mg/dL 08/08/24 08/08/24 Range/Units 05:24 05:35 Chloride 110 H (96-109) mmol/L Carbon Dioxide 20.3 L (21.6-31.8) mmol/L Anion Gap 13.70 H (4.00-12.00) mmol/L Est GFR (CKD-EPI) 59 L (>=60) BUN/Creatinine Ratio 21.83 H (12.00-20.00) Ratio Glucose 122 H (70-110) mg/dL POC Glucose (mg/dL) 127 H (70-110) mg/dL Assessment and Plan Assessment: 1. The patient is an 83-year-old male with a previous history of left basal ganglia bleed and ischemic infarct involving the left centrum semiovale. Current symptoms are consistent with a subsequent stroke involving the left middle cerebral artery territory with resultant global aphasia 2. Urinary tract infection 3. History of atrial fibrillation 4. History of ischemic infarct 5. History of dementia 6. History of diabetes mellitus Plan: 1. Awaiting MRI of the brain to further evaluate for cerebral ischemia 2. Stroke order set has been placed 3. Speech therapy evaluation for swallow and aphasia 4. Physical and Occupational Therapy evaluations 5. 2D echocardiogram has been ordered 6. Aspirin 81 mg has been started. Following completion of the MRI consider restarting Xarelto with aspirin.
[2024-08-08 12:42] LABS: Glucose,Whole Blood 132 mg/dL (70-110)
[2024-08-08] MEDS: ASPIRIN 81 MG PO SCH (14:50)
--- NOTE | 2024-08-08 15:21 | CA ---
Transthoracic Echo Report Name: Phoenix Castillo Age: 83 Gender: M : 1940 Exam Date: 08/08/2024 08:56 Exam Location: [facility] Ht (in): 70 Wt (lb): 187 Ordering Physician: Sepideh Quigley DO Attending/Referring Phys: Creping Machine Operator David Doss RDCS Procedure CPT: Indications: CVA, Cardiomyopathy, unspecified Cardiac Hx: Technical Quality: Poor Contrast 1: Definity Total Dose (mL): 2 Contrast 2: Total Dose (mL): MEASUREMENTS (Male / Female) Normal Values 2D ECHO LV Diastolic Diameter PLAX 4.7 cm 4.2 - 5.9 / 3.9 - 5.3 cm LV Systolic Diameter PLAX 3.0 cm IVS Diastolic Thickness 1.0 cm 0.6 - 1.0 / 0.6 - 0.9 cm LVPW Diastolic Thickness 1.3 cm 0.6 - 1.0 / 0.6 - 0.9 cm LV Relative Wall Thickness 0.5 LVOT Diameter 1.6 cm LV Diastolic Volume MOD 4C 78.1 cm??? LV Systolic Volume MOD 4C 26.8 cm??? LV Ejection Fraction MOD 4C 65.7 % LV Diastolic Length 4C 7.5 cm LV Systolic Length 4C 6.1 cm LV Diastolic Volume MOD 2C 75.3 cm??? LV Diastolic Length 2C 7.1 cm DOPPLER TR Peak Velocity 244.9 cm/s TR Peak Gradient 24.0 mmHg Right Atrial Pressure 5.0 mmHg Pulmonary Artery Systolic Pressu 29.0 mmHg Right Ventricular Systolic Press 29.0 mmHg FINDINGS Left Ventricle Left ventricular ejection fraction is estimated at 60-65%. Normal left ventricular systolic function with no obvious regional wall motion abnormalities. Right Ventricle Normal right ventricular size. Right ventricular systolic pressure within normal limits. Right Atrium Normal right atrial size. Left Atrium Mildly increased left atrial area. Mitral Valve Mitral annular calcification. No mitral stenosis. Trace mitral regurgitation. Trace mitral regurgitation. Aortic Valve Trileaflet aortic valve. Diffuse thickening (sclerosis) of the aortic valve cusps without reduced excursion. No aortic stenosis. Trace aortic regurgitation. Tricuspid Valve Structurally normal tricuspid valve. No tricuspid stenosis. Mild tricuspid regurgitation. Pulmonic Valve Pulmonic valve not well visualized. No pulmonic stenosis. Trace pulmonic regurgitation. Pericardium No pericardial effusion. Aorta Aortic root and proximal ascending aorta not well visualized. CONCLUSIONS LVEF 60% No obvious regional wall motion abnormality Normal RV size and systolic function Mild left atrial dilatation Mild aortic valve sclerosis Mild mitral regurgitation and mild tricuspid regurgitation Previewed by: Dr Jeff Mims (Electronically Signed) Final Date: 08 August 2024 15:20
[2024-08-08] MEDS: levETIRAcetam IV 500 MG/5 ML VIAL IVP SCH (16:48)
[2024-08-08 17:36] LABS: Glucose,Whole Blood 125 mg/dL (70-110)
--- NOTE | 2024-08-08 18:25 | MR ---
EXAMINATION TYPE: MR brain wo con DATE OF EXAM: 08/08/2024 6:10 PM COMPARISON: CT, CTA. MRI 10/03/2023 CLINICAL INDICATION: Male, 83 years old with history of CVA; PHH, CVA TECHNIQUE: Multi planar, multi sequence imaging was performed through the brain including: T1, T2, In version recovery, Diffusion weighted imaging, and gradient echo imaging. No gadolinium was given. FINDINGS: Redemonstration of restricted diffusion within the left preciado radiata/basal ganglia. Findi ngs are seen in a similar location on 10/03/2023 with blooming artifact suggesting hemosiderin depositi on. As well as the left temporal lobe cortex. Mild cerebral atrophy with proportional dilation of ventricular system. Scattered foci and confluen t areas of of high T2 signal intensity are seen within the periventricular white matter. Midline stru ctures show no abnormality. The bone marrow signal is within normal limits. Paranasal sinuses and mastoid air cells: No significant paranasal sinus disease. Visualized orbits: Orbital contents are intact. IMPRESSION: 1. Redemonstration of heterogenous area within the left basal ganglia/ preciado radiata with hemosideri n deposition suggesting prior petechial hemorrhage and 10/03/2023. Findings favor prior acute on chroni c CVA involving the left basal ganglia and preciado radiata with new acute left temporal lobe CVA. Find ing is thought to be less likely mass given some involution encephalomalacia seen in CT brain from 03/2025 compared to 10/04/2023. 2. Nonspecific white matter changes, likely secondary to small vessel ischemic disease. [facility], , 08/08/2024 6:23 PM
[2024-08-08 20:29] LABS: Glucose,Whole Blood 113 mg/dL (70-110)
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
[2024-08-09 05:54] LABS: Glucose,Whole Blood 140 mg/dL (70-110)
[2024-08-09 08:32] LABS: BUN/Creat Ratio 20.18 Ratio (12.00-20.00); Blood Urea Nitrogen 22.2 mg/dL (9.0-27.0); Carbon Dioxide 17.8 mmol/L (21.6-31.8); Chloride 112 mmol/L (96-109); Glucose 144 mg/dL (70-110); Magnesium 2.1 mg/dL (1.5-2.4); Potassium 4.1 mmol/L (3.5-5.5); Sodium 146 mmol/L (135-145)
[2024-08-09 08:33] LABS: ALT 15 U/L (10-49); AST 26 U/L (14-35); Albumin 3.8 g/dL (3.8-4.9); Albumin/Globulin Ratio 1.15 Ratio (1.60-3.17); Alkaline Phosphatase 80 U/L (41-126); Calcium 9.3 mg/dL (8.7-10.3); Globulin 3.3 g/dL (1.6-3.3); Total Bilirubin 0.7 mg/dL (0.3-1.2); Total Protein 7.1 g/dL (6.2-8.2)
[2024-08-09 09:03] LABS: Basophils # (A) 0.08 X 10*3/uL (0.00-0.10); Basophils % (A) 0.6 %; Eosinophils # (A) 0.01 X 10*3/uL (0.04-0.35); Eosinophils % (A) 0.1 %; HCT 53.5 % (39.6-50.0); HGB 17.4 g/dL (13.0-17.0); Lymphocytes # (A) 1.84 X 10*3/uL (0.90-5.00); Lymphocytes % (A) 13.8 %; MCH 30.7 pg (27.0-32.0); MCHC 32.5 g/dL (32.0-37.0); MCV 94.5 FL (80.0-97.0); Mean Platelet Volume 11.7 FL (9.5-12.2); Monocytes # (A) 1.44 X 10*3/uL (0.20-1.00); Monocytes % (A) 10.8 %; NRBC Per 100 WBC 0 X 10*3/uL (0.00-0.01); Neutrophils # (A) 9.95 X 10*3/uL (1.80-7.70); Neutrophils % (A) 74.3 %; Platelet Count 235 X 10*3/uL (140-440); RBC 5.66 X 10*6/uL (4.40-5.60); RDW 15.3 % (11.5-14.5); WBC 13.38 X 10*3/uL (4.50-10.00)
[2024-08-09] MEDS: THIAMINE 100 MG/ML 2 ML VIAL IVP SCH (09:46)
[2024-08-09] MEDS: METOPROLOL TARTRATE 5 MG/5 ML VIAL IVP STA (10:01)
[2024-08-09 11:58] LABS: Glucose,Whole Blood 156 mg/dL (70-110)
[2024-08-09] MEDS: hydrALAZINE HCL 20 MG/ML 1 ML VIAL IVP PRN (12:41)
[2024-08-09] MEDS: ACETAMINOPHEN IV (For NPO) 1,000 MG in EMPTY BAG 1 BAG IVPB PRN (13:43)
[2024-08-09] MEDS ORDERED: DEXTROSE 50% SYRINGE 50 ML IVP PRN ×2 (13:45)
[2024-08-09] MEDS: PIPERACILLIN-TAZOBACTAM 3.375 GM in SODIUM CHLORIDE 0.9% 100 ML IVPB SCH (14:27)
[2024-08-09 15:25] LABS: Influenza A Not Detected (Not Detectd); Influenza B Not Detected (Not Detectd); RSV Not Detected (Not Detectd)
[2024-08-09] MEDS: METOPROLOL TARTRATE 5 MG/5 ML VIAL IVP PRN (16:21)
[2024-08-09 17:33] LABS: Glucose,Whole Blood 157 mg/dL (70-110)
[2024-08-09] MEDS: INSULIN LISPRO (HumaLOG) 100 UNIT/ML 10 mL VL SQ SCH (18:45)
[2024-08-09 20:52] LABS: Glucose,Whole Blood 148 mg/dL (70-110)
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
[2024-08-10 06:32] LABS: Glucose,Whole Blood 127 mg/dL (70-110)
--- NOTE | 2024-08-10 08:23 | CT ---
EXAMINATION TYPE: CT brain wo con DATE OF EXAM: 08/10/2024 7:42 AM COMPARISON: 08/06/2024 CLINICAL INDICATION: Male, 83 years old with history of Follow up CVA, F/U CVA, TECHNIQUE: Examination was done in axial plane without intravenous contrast. Coronal and sagittal r econstructions performed. CT DLP: 1183 mGycm, Automated exposure control for dose reduction was used. FINDINGS: Mild ventriculomegaly from generalized central cerebral atrophy is similar. Some residual IV contrast material remains on board enhancing the vasculature. There is confluent white matter hypodensity redemonstrated. Greater degree of hypodensity left basal ganglia measuring 3.2 x 2.1 x 3.9 cm indicating acute to sub acute infarct. This has slight mass effect onto the body of the left lateral ventricle but without mi dline shift or herniation. Old infarct anterior left basal ganglia with encephalomalacia. No extra-axial fluid collection seen. Slight rightward nasal septal deviation. Paranasal sinuses and mastoid air cells well pneumatized. So me distention of the left superior solid vein now noted. IMPRESSION: 1. Evolving acute to subacute left basal ganglionic infarct measuring up to 3.9 cm. This has slight m ass effect onto the body of the left lateral ventricle. No midline shift or herniation at this time. 2. IV contrast remains on board limiting assessment for acute intracranial hemorrhage. No obvious acu te intracranial hemorrhage is seen. [facility] [place], , 08/10/2024 8:21 AM
--- NOTE | 2024-08-10 09:03 | P.PN ---
Subjective Progress Note Date: 08/09/24 08/09/2024: Patient was seen for a follow-up. Patient's daughter was present. The family mentioned that patient was seen by neurosurgery on 12/08/2023. 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 No cancer. Patient had history of possible seizure in October 2023, noticed by physical therapist during a session. Family believes that patient is slightly better, as he is saying some words "I don't know that". They're noticing little movement of the right leg. He has been complaining of some neck stiffness since he fell on his back. He is not ambulatory, as he cannot bear weight. Prior to coming to the hospital, he was speaking normally, could eat normally but did not walk. He has not walked since November 2023. 08/08/2024: Patient was initially seen by Dr. Quigley. Please refer to her note for details. Patient has presented with possible left MCA territory infarct. Patient has history of left basal ganglia bleed as well. MRI of the brain has been ordered. Patient at present is laying in the bed, in no acute distress. He is making eye contact. Patient is mute. Objective - Vital Signs Vital signs: Vital Signs Temp 97.5 F L 08/10/24 07:50 Pulse 111 H 08/10/24 07:50 Resp 16 08/10/24 07:50 BP 159/84 08/10/24 04:31 Pulse Ox 98 08/10/24 07:50 FiO2 Intake & Output 08/09/24 08/10/24 08/10/24 18:59 06:59 18:59 Output Total 600 790 Balance -600 -790 Output: Urine 600 790 Other: Voiding Method External Catheter # Voids 1 # Bowel Movements 1 - Exam Patient is laying in the bed, in no acute distress. Patient is nonverbal. He has right-sided hemiparesis. Patient is squeezing left hand. He is lifting his left arm on command. He is wiggling his left foot. The strength appears normal on the left side. Patient is flaccid on the right side. Some movements noted by the family members on the right side. - Labs CBC & Chem 7: 08/09/24 04:19 08/09/24 04:19 Labs: Abnormal Lab Results - Last 24 Hours (Table) 08/09/24 08/09/24 08/09/24 Range/Units 04:19 11:56 17:31 WBC 13.38 H (4.50-10.00) X 10*3/uL RBC 5.66 H (4.40-5.60) X 10*6/uL Hgb 17.4 H (13.0-17.0) g/dL Hct 53.5 H (39.6-50.0) % RDW 15.3 H (11.5-14.5) % Immature Gran # 0.06 H (0.00-0.04) X 10*3/uL Neutrophils # 9.95 H (1.80-7.70) X 10*3/uL Monocytes # 1.44 H (0.20-1.00) X 10*3/uL Eosinophils # 0.01 L (0.04-0.35) X 10*3/uL POC Glucose (mg/dL) 156 H 157 H (70-110) mg/dL 08/09/24 08/10/24 Range/Units 20:50 06:31 WBC (4.50-10.00) X 10*3/uL RBC (4.40-5.60) X 10*6/uL Hgb (13.0-17.0) g/dL Hct (39.6-50.0) % RDW (11.5-14.5) % Immature Gran # (0.00-0.04) X 10*3/uL Neutrophils # (1.80-7.70) X 10*3/uL Monocytes # (0.20-1.00) X 10*3/uL Eosinophils # (0.04-0.35) X 10*3/uL POC Glucose (mg/dL) 148 H 127 H (70-110) mg/dL Microbiology - Last 24 Hours (Table) 08/08/24 18:41 Urine Culture - Final Urine,Voided 08/08/24 15:45 Blood Culture - Preliminary Blood Assessment and Plan Assessment: 1. The patient is an 83-year-old male with a previous history of left basal ganglia bleed and ischemic infarct involving the left centrum semiovale. Current symptoms are consistent with a subsequent stroke involving the left middle cerebral artery territory with resultant global aphasia 2. Urinary tract infection 3. History of atrial fibrillation 4. History of ischemic infarct 5. History of dementia 6. History of diabetes mellitus Plan: 1. MRI of the brain revealed redemonstration of heterogeneous area within the left basal ganglia/preciado radiata with hemosiderin deposition suggesting prior petechial hemorrhage on 10/03/2023. Findings fever prior acute on chronic CVA involving the left basal ganglia and preciado radiata with new acute left temporal lobe CVA. Finding is thought to be less likely mass given some involution encephalomalacia seen in the CT brain from 08/06/2024 compared to 10/04/2023. Nonspecific white matter changes, likely secondary to small vessel ischemic disease. I personally reviewed MR agree with the findings. 2. Stroke order set has been placed 3. Speech therapy evaluation for swallow and aphasia 4. Physical and Occupational Therapy evaluations 5. 2D echocardiogram has been ordered 6. Aspirin 81 mg has been started. Hold off on Xarelto at this point. 7. Repeat CT head in the morning to rule out any hemorrhage. If cleared, then may consider resuming Xarelto. 8. Discussed with family members.
[2024-08-10 10:03] LABS: Basophils # (A) 0.08 10*3/uL (0.00-0.10); Basophils % (A) 0.6 %; Eosinophils # (A) 0.03 10*3/uL (0.04-0.35); Eosinophils % (A) 0.2 %; HCT 52.2 % (39.6-50.0); Lymphocytes % (A) 7.2 %; MCH 30.5 pg (27.0-32.0); MCHC 32.6 g/dL (32.0-37.0); MCV 93.7 fL (80.0-97.0); Mean Platelet Volume 10.7 fL (9.5-12.2); Monocytes # (A) 1.21 10*3/uL (0.20-1.00); Monocytes % (A) 8.7 %; Neutrophils # (A) 11.45 10*3/uL (1.80-7.70); Neutrophils % (A) 82.8 %; Platelet Count 228 10*3/uL (140-440); RBC 5.57 10*6/uL (4.40-5.60); RDW 15.6 % (11.5-14.5); WBC 13.84 10*3/uL (4.50-10.00)
[2024-08-10 10:40] LABS: African American GFR (CKD) 70 (>60 ml/min/1.73 sqM); Anion Gap 15 mmol/L; Blood Urea Nitrogen 29 mg/dL (9-20); Calcium 9.5 mg/dL (8.4-10.2); Carbon Dioxide 21 mmol/L (22-30); Chloride 114 mmol/L (98-107); Glucose 156 mg/dL (74-99); Non-African American GFR(CKD) 60 (>60 ml/min/1.73 sqM); Potassium 3.3 mmol/L (3.5-5.1); Sodium 150 mmol/L (137-145)
[2024-08-10] MEDS: DEXTROSE 5% IN WATER 1,000 ML IV SCH (11:51)
[2024-08-10 12:16] LABS: Glucose,Whole Blood 152 mg/dL (70-110)
[2024-08-10 17:47] LABS: Glucose,Whole Blood 170 mg/dL (70-110)
[2024-08-10 19:51] LABS: Glucose,Whole Blood 150 mg/dL (70-110)
[2024-08-10] MEDS ORDERED: ACETAMINOPHEN IV (For NPO) 1,000 MG in EMPTY BAG 1 BAG IVPB PRN (20:13)
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
[2024-08-11 06:22] LABS: Glucose,Whole Blood 132 mg/dL (70-110)
[2024-08-11 08:15] LABS: BUN/Creat Ratio 28.25 Ratio (12.00-20.00); Blood Urea Nitrogen 33.9 mg/dL (9.0-27.0); Calcium 9.2 mg/dL (8.7-10.3); Carbon Dioxide 21.9 mmol/L (21.6-31.8); Chloride 119 mmol/L (96-109); Glucose 135 mg/dL (70-110); Potassium 3.1 mmol/L (3.5-5.5); Sodium 155 mmol/L (135-145)
[2024-08-11 08:19] LABS: Basophils # (A) 0.05 X 10*3/uL (0.00-0.10); Basophils % (A) 0.4 %; Eosinophils # (A) 0 X 10*3/uL (0.04-0.35); Eosinophils % (A) 0 %; HCT 53.1 % (39.6-50.0); Lymphocytes # (A) 1.29 X 10*3/uL (0.90-5.00); Lymphocytes % (A) 9.3 %; MCH 30.1 pg (27.0-32.0); Mean Platelet Volume 12.1 FL (9.5-12.2); Monocytes # (A) 1.02 X 10*3/uL (0.20-1.00); Monocytes % (A) 7.4 %; NRBC Per 100 WBC 0 X 10*3/uL (0.00-0.01); Neutrophils # (A) 11.38 X 10*3/uL (1.80-7.70); Neutrophils % (A) 82.2 %; Platelet Count 221 X 10*3/uL (140-440); RBC 5.65 X 10*6/uL (4.40-5.60); RDW 15.6 % (11.5-14.5); WBC 13.83 X 10*3/uL (4.50-10.00)
[2024-08-11 08:57] VITALS: BP 165/98; PULSE 107; RESP 26; TEMP 99
--- NOTE | 2024-08-11 08:58 | P.PN ---
Subjective Progress Note Date: 08/10/24 08/10/2024: Patient was seen for follow-up. Patient continues to be very obtunded. No improvement noticed. Patient has pulled NG tube. He does not want a PEG tube placement. Multiple family members were present. 08/09/2024: Patient was seen for a follow-up. Patient's daughter was present. The family mentioned that patient was seen by neurosurgery on 12/08/2023. 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 No cancer. Patient had history of possible seizure in October 2023, noticed by physical therapist during a session. Family believes that patient is slightly better, as he is saying some words "I don't know that". They're noticing little movement of the right leg. He has been complaining of some neck stiffness since he fell on his back. He is not ambulatory, as he cannot bear weight. Prior to coming to the hospital, he was speaking normally, could eat normally but did not walk. He has not walked since November 2023. 08/08/2024: Patient was initially seen by Dr. Quigley. Please refer to her note for details. Patient has presented with possible left MCA territory infarct. Patient has history of left basal ganglia bleed as well. MRI of the brain has been ordered. Patient at present is laying in the bed, in no acute distress. He is making eye contact. Patient is mute. Objective - Vital Signs Vital signs: Vital Signs Temp 99.6 F 08/10/24 14:30 Pulse 123 H 08/10/24 14:30 Resp 18 08/10/24 14:30 BP 155/83 08/10/24 14:30 Pulse Ox 93 L 08/10/24 14:30 FiO2 Intake & Output 08/09/24 08/10/24 08/10/24 18:59 06:59 18:59 Output Total 600 790 125 Balance -600 -790 -125 Output: Urine 600 790 125 Other: Voiding Method External Catheter External Catheter # Voids 1 # Bowel Movements 1 1 - Exam Patient is laying in the bed, in no acute distress. Patient is nonverbal. He has right-sided hemiparesis. Patient is squeezing left hand. He is lifting his left arm on command. He is wiggling his left foot. The strength appears normal on the left side. Patient is flaccid on the right side. Some movements noted by the family members on the right side. - Labs CBC & Chem 7: 08/11/24 04:34 08/11/24 04:34 Labs: Abnormal Lab Results - Last 24 Hours (Table) 08/09/24 08/10/24 08/10/24 Range/Units 20:50 06:31 09:50 WBC 13.84 H (4.50-10.00) 10*3/uL Hct 52.2 H (39.6-50.0) % RDW 15.6 H (11.5-14.5) % Immature Gran # 0.07 H (0.00-0.04) 10*3/uL Neutrophils # 11.45 H (1.80-7.70) 10*3/uL Monocytes # 1.21 H (0.20-1.00) 10*3/uL Eosinophils # 0.03 L (0.04-0.35) 10*3/uL Sodium (137-145) mmol/L Potassium (3.5-5.1) mmol/L Chloride (98-107) mmol/L Carbon Dioxide (22-30) mmol/L BUN (9-20) mg/dL Glucose (74-99) mg/dL POC Glucose (mg/dL) 148 H 127 H (70-110) mg/dL 08/10/24 08/10/24 08/10/24 Range/Units 09:50 12:14 17:46 WBC (4.50-10.00) 10*3/uL Hct (39.6-50.0) % RDW (11.5-14.5) % Immature Gran # (0.00-0.04) 10*3/uL Neutrophils # (1.80-7.70) 10*3/uL Monocytes # (0.20-1.00) 10*3/uL Eosinophils # (0.04-0.35) 10*3/uL Sodium 150 H (137-145) mmol/L Potassium 3.3 L (3.5-5.1) mmol/L Chloride 114 H (98-107) mmol/L Carbon Dioxide 21 L (22-30) mmol/L BUN 29 H (9-20) mg/dL Glucose 156 H (74-99) mg/dL POC Glucose (mg/dL) 152 H 170 H (70-110) mg/dL Microbiology - Last 24 Hours (Table) 08/08/24 18:41 Urine Culture - Final Urine,Voided 08/08/24 15:45 Blood Culture - Preliminary Blood Assessment and Plan Assessment: 1. The patient is an 83-year-old male with a previous history of left basal ganglia bleed and ischemic infarct involving the left centrum semiovale, now presented with another stroke involving the left basal ganglia. Patient has right hemiplegia and aphasia. 2. Urinary tract infection 3. History of atrial fibrillation 4. History of ischemic infarct 5. History of dementia 6. History of diabetes mellitus Plan: 1. MRI of the brain revealed redemonstration of heterogeneous area within the left basal ganglia/preciado radiata with hemosiderin deposition suggesting prior petechial hemorrhage on 10/03/2023. Findings fever prior acute on chronic CVA involving the left basal ganglia and preciado radiata with new acute left temporal lobe CVA. Finding is thought to be less likely mass given some involution encephalomalacia seen in the CT brain from 08/06/2024 compared to 10/04/2023. Nonspecific white matter changes, likely secondary to small vessel ischemic disease. I personally reviewed MR agree with the findings. 2. Repeat CT head performed today revealed evolving acute to subacute left basal ganglionic infarct measuring up to 3.9 cm. This has slight mass effect onto the body of the left lateral ventricle. No midline shift or herniation. IV contrast remains on board limiting assessment for acute intracranial he morrhage. No obvious acute intracranial hemorrhage seen. I proceed reviewed CT head report with Dr. Barahona. He believes there is no hemorrhage. 3. Speech therapy evaluation for swallow and aphasia 4. Physical and Occupational Therapy evaluations 5. 2D echocardiogram has been ordered 6. Patient not able to take Xarelto, as he has no NG tube and patient has declined PEG tube placement. We will for now start him on Lovenox anticoagulation dose from tomorrow morning. 7. Discussed with family members. Patient is declining PEG tube placement. He probably would not able to swallow. He is not letting NG tube in either. Another option is hospice. Family will discuss at length with the patient to make mutual decision about continuing care versus hospice.
[2024-08-11] MEDS: ENOXAPARIN 80 MG/0.8 ML SYRINGE SQ SCH (09:05)
[2024-08-11 12:22] LABS: Glucose,Whole Blood 131 mg/dL (70-110)
--- NOTE | 2024-08-11 12:45 | P.DS ---
Providers Date of admission: 08/06/24 18:11 Expected date of discharge: 08/11/24 Attending physician: Kiara Vilchis MD Consults: 08/06/24 18:18 Consult Physician Routine Consulting Provider: Sepideh Quigley Consult Reason/Comments: Strokelike symptoms Do you want consulting provider notified?: Already Contacted Primary care physician: Ed Haynes [facility] Course: Final diagnosis -Altered mental status; multifactorial, secondary to CVA as noted on MRI as well as metabolic encephalopathy secondary to acute urinary tract infection -UTI, present on admission, cultures are negative -Fever, leukocytosis, concerns for possible aspiration -hypernatremia, likely secondary to poor oral intake -Hypertension -History of atrial fibrillation, currently rate controlled, patient normally takes atenolol and Xarelto although currently n.p.o. as patient failed swallow -Seizure disorder; continue Keppra. IV as patient is n.p.o. -Diabetes mellitus with long-term insulin use; uncontrolled with hypoglycemia -Hyperlipidemia -History of depression/anxiety -History of dementia -GI prophylaxis -DVT prophylaxis; SCDs -No code Discharge disposition Patient is being discharged in a stable condition with guarded and poor prognosis to [facility]. Patient will follow-up with Dr. Haynes in the outpatient setting upon discharge. Patient is to continue with hospice and comfort measures. Total time taken is greater than 35 minutes. Hospital course This is a 83-year-old male who was recently admitted with altered mental status with concerns of metabolic encephalopathy secondary to initially acute urinary tract infection. Patient had been at [facility] and follows with Dr. Haynes in the outpatient setting with past medical history of recent diagnosed cavernoma from [facility]. At that time family was told he did not have a stroke although on their MRI imaging there was noted to have frontal lobe infarct. Patient evaluated by neurology here underwent MRI suggestive of CVA. Patient also with extreme dysphagia evaluated by speech on multiple different occasions and aspirating on everything and is made strict NPO. Discussion was had with the family and patient regarding treatment options and patient does not want a feeding tube. Patient is currently n.p.o. and will remain this. Patient and family have met with hospice and would like to go to [facility] and discuss continued nutrition. At this point it would be palliative pleasure feeds as patient is aspirating on everything and all consistencies. Speech reevaluated and patient continues to do the same. Patient is clinically declining and family has made the choice of going with hospice comfort measures. Family met with Scar mckeon with financial assessments and patient will be going today. Patient has been accepted. Gen: This is a 83-year-old male who is lethargic, minimally responsive today, arousable but fatigues easily. Well-developed, elderly appearing, ill-appearing HEENT: Head is atraumatic, normocephalic. Pupils equal, round. Sclerae is anicteric. NECK: Supple. No JVD. No lymphadenopathy. No thyromegaly. LUNGS: Diminished breath sounds bilaterally with coarse expiratory rhonchi and significant bronchial congestion. no intercostal retractions. HEART: S1, S2 are muffled, irregular ABDOMEN: Soft. Thin bowel sounds are present. No masses. No tenderness. EXTREMITIES: No pedal edema. No calf tenderness. NEUROLOGICAL: Patient is awake, alert and oriented x0-1. Aphasic. weak. Right side flaccid noted Please refer to medication reconciliation sheet for a list of medications. The impression and plan of care has been dictated by Angela Calderon, Nurse Practitioner as directed. Dr. Irais MD I have performed a history and examination and MDM of this patient, discussed the same with the dictator, and agree with the dictator's assessment and plan as written ,documented as a scribe. Based on total visit time, I have performed more than 50% of the visit. Patient Condition at Discharge: Poor Plan - Discharge Summary New Discharge Prescriptions: No Action Thiamine [Vitamin B-1] 100 mg PO DAILY Sodium Chloride Tab 1 gm PO TID Acetaminophen Tab [Tylenol] 650 mg PO TID Potassium Chloride ER [K-Dur 10] 30 meq PO DAILY polyethylene glycoL 3350 [Miralax] 17 gm PO Q3D PRN PRN Reason: Constipation Ondansetron [Zofran] 4 mg PO Q8HR PRN PRN Reason: nausea amLODIPine [Norvasc] 5 mg PO DAILY Insulin Glargine (Lantus) [Lantus Vial] 10 unit SQ DAILY Folic Acid 1 mg PO DAILY atenoloL 100 mg PO DAILY Menthol [Biofreeze] 1 applic TOPICAL DAILY PRN PRN Reason: Pain lisinopriL [Zestril] 20 mg PO DAILY Rivaroxaban [Xarelto] 20 mg PO DAILY Venlafaxine HCl [Effexor] 75 mg PO DAILY Simvastatin [Zocor] 40 mg PO HS Magnesium Hydroxide [Milk of Magnesia Concentrate] 7,200 mg PO DAILY PRN PRN Reason: Constipation levETIRAcetam [Keppra] 500 mg PO Q12HR INSULIN LISPRO (humaLOG) [humaLOG] See Protocol SQ ACHS Empagliflozin [Jardiance] 10 mg PO DAILY bisacodyL [Dulcolax] 10 mg RECTAL DAILY PRN PRN Reason: Constipation Na Phos,M-B/Na Phos,Di-Ba [Fleet Adult] 133 ml RECTAL DAILY PRN PRN Reason: Constipation Donepezil [Aricept] 10 mg PO DAILY Menthol [Biofreeze] 1 applic TOPICAL BID Discharge Medication List Rivaroxaban [Xarelto] 20 mg PO DAILY 01/16/22 [History] lisinopriL [Zestril] 20 mg PO DAILY 01/16/22 [History] Acetaminophen Tab [Tylenol] 650 mg PO TID 08/06/24 [History] Donepezil [Aricept] 10 mg PO DAILY 08/06/24 [History] Empagliflozin [Jardiance] 10 mg PO DAILY 08/06/24 [History] Folic Acid 1 mg PO DAILY 08/06/24 [History] INSULIN LISPRO (humaLOG) [humaLOG] See Protocol SQ ACHS 08/06/24 [History] Insulin Glargine (Lantus) [Lantus Vial] 10 unit SQ DAILY 08/06/24 [History] Magnesium Hydroxide [Milk of Magnesia Concentrate] 7,200 mg PO DAILY PRN 08/06/24 [History] Menthol [Biofreeze] 1 applic TOPICAL BID 08/06/24 [History] Menthol [Biofreeze] 1 applic TOPICAL DAILY PRN 08/06/24 [History] Na Phos,M-B/Na Phos,Di-Ba [Fleet Adult] 133 ml RECTAL DAILY PRN 08/06/24 [History] Ondansetron [Zofran] 4 mg PO Q8HR PRN 08/06/24 [History] Potassium Chloride ER [K-Dur 10] 30 meq PO DAILY 08/06/24 [History] Simvastatin [Zocor] 40 mg PO HS 08/06/24 [History] Sodium Chloride Tab 1 gm PO TID 08/06/24 [History] Thiamine [Vitamin B-1] 100 mg PO DAILY 08/06/24 [History] Venlafaxine HCl [Effexor] 75 mg PO DAILY 08/06/24 [History] amLODIPine [Norvasc] 5 mg PO DAILY 08/06/24 [History] atenoloL 100 mg PO DAILY 08/06/24 [History] bisacodyL [Dulcolax] 10 mg RECTAL DAILY PRN 08/06/24 [History] levETIRAcetam [Keppra] 500 mg PO Q12HR 08/06/24 [History] polyethylene glycoL 3350 [Miralax] 17 gm PO Q3D PRN 08/06/24 [History] Follow up Appointment(s)/Referral(s): Ed Haynes MD [Primary Care Provider] - 1-2 days Activity/Diet/Wound Care/Special Instructions: Patient will be going to [facility] house Discharge Disposition: OTHER INSTITUTION NOT DEFINED
== END 2024-08-11 13:17 | disposition hospice, inpatient (51) | DRG 64 ==
LOC: EC 15:45 → 3SCARD 18:11 → 6NMEDSUR 19:23
PROVIDERS: ADMIT Internal Medicine; ATTEND Internal Medicine
DX: I63.512 Cerebral infarction due to unspecified occlusion or stenosis of left middle cerebral artery (principal); G93.41 Metabolic encephalopathy; E87.0 Hyperosmolality and hypernatremia; R29.717 NIHSS score 17; Z51.5 Encounter for palliative care; R13.10 Dysphagia, unspecified; I48.91 Unspecified atrial fibrillation; G93.89 Other specified disorders of brain; Z66 Do not resuscitate; T17.918A Gastric contents in respiratory tract, part unspecified causing other injury, initial encounter; G81.91 Hemiplegia, unspecified affecting right dominant side; F02.82 Dementia in other diseases classified elsewhere, unspecified severity, with psychotic disturbance; G40.909 Epilepsy, unspecified, not intractable, without status epilepticus; E11.65 Type 2 diabetes mellitus with hyperglycemia; I69.331 Monoplegia of upper limb following cerebral infarction affecting right dominant side; F32.A Depression, unspecified; I10 Essential (primary) hypertension; F02.83 Dementia in other diseases classified elsewhere, unspecified severity, with mood disturbance; F02.84 Dementia in other diseases classified elsewhere, unspecified severity, with anxiety; R41.4 Neurologic neglect syndrome; N39.0 Urinary tract infection, site not specified; R44.3 Hallucinations, unspecified; G30.9 Alzheimer's disease, unspecified; E11.649 Type 2 diabetes mellitus with hypoglycemia without coma; Z79.4 Long term (current) use of insulin; R47.01 Aphasia; R47.1 Dysarthria and anarthria; G52.8 Disorders of other specified cranial nerves; E78.5 Hyperlipidemia, unspecified; R29.810 Facial weakness; R45.1 Restlessness and agitation; Z74.01 Bed confinement status; Z79.01 Long term (current) use of anticoagulants; Z79.84 Long term (current) use of oral hypoglycemic drugs; Z79.899 Other long term (current) drug therapy
CPT/HCPCS: 36415; 70450; 70496; 70498; 70551; 71045; 80048; 80053; 81001; 82550; 83735; 84145; 84484; 85025; 85610; 85730; 87040; 87086; 87636; 93005; 93306; 99291